=== PATIENT | female | born 1935 | race Caucasian/White ===

== ENCOUNTER → 2019-12-14 11:41 | Outpatient (BNVA) | payer MEDICARE, SELFPAY | PROVIDERS: PCP Internal Medicine; Referring Provider Internal Medicine; Visit Provider Internal Medicine Cardiovascular Disease | DX: I48.0 Paroxysmal atrial fibrillation (principal); Z51.81 Encounter for therapeutic drug level monitoring; Z79.01 Long term (current) use of anticoagulants | CPT/HCPCS: 85610; 99211 ==

== ENCOUNTER 2019-12-14 11:45 | Outpatient (REF) | payer MEDICARE, SELFPAY | END 2019-12-14 11:46 | disposition home or self-care (01) | LOC: HO.LNP 11:45 | PROVIDERS: Visit Provider Internal Medicine Cardiovascular Disease | DX: I48.0 Paroxysmal atrial fibrillation (principal); Z79.01 Long term (current) use of anticoagulants ==

== ENCOUNTER → 2019-12-25 11:27 | Outpatient (BNVA) | payer MEDICARE, SELFPAY | PROVIDERS: PCP Internal Medicine; Referring Provider Internal Medicine; Visit Provider Nurse Practitioner Family | DX: I48.0 Paroxysmal atrial fibrillation (principal); R06.02 Shortness of breath; I10 Essential (primary) hypertension; E78.5 Hyperlipidemia, unspecified; Z79.01 Long term (current) use of anticoagulants | CPT/HCPCS: 99214 ==

== ENCOUNTER → 2020-01-11 11:36 | Outpatient (BNVA) | payer MEDICARE, SELFPAY | PROVIDERS: PCP Internal Medicine; Referring Provider Internal Medicine; Visit Provider Internal Medicine | DX: I48.0 Paroxysmal atrial fibrillation (principal); Z79.01 Long term (current) use of anticoagulants; Z51.81 Encounter for therapeutic drug level monitoring | CPT/HCPCS: 85610; 99211 ==

== ENCOUNTER 2020-01-30 12:17 | Outpatient (REF) | payer MEDICARE, SELFPAY ==
[2020-01-30 13:57] LABS: MANUAL DIFF FLAG NO
[2020-01-30 14:23] LABS: Basophils Percent Auto 0.6 % (0-2); Eosinophils Absolute Auto 0.1 X10*3/uL (0.0-0.4); Eosinophils Percent Auto 1.5 % (0-4); Hematocrit 44.7 % (37-47); Hemoglobin 14.5 g/dl (12.0-16.0); Imm Gran Abs Auto 0.03 X10*3/uL (0.00-0.03); Imm Gran Pct Auto 0.5 % (0.0-0.4); Lymphocytes Absolute Auto 2.6 X10*3/uL (1.2-4.9); Lymphocytes Percent Auto 39.7 % (20-40); Mean Corpuscular HGB Conc 32.4 g/dl (31.0-35.0); Mean Corpuscular Hemoglobin 30.3 pg (27.0-33.0); Mean Corpuscular Volume 93.5 fL (80-98); Mean Platelet Volume 11.4 fL (9.4-12.3); Monocytes Absolute Auto 0.4 X10*3/uL (0.1-1.2); Monocytes Percent Auto 6.3 % (2-11); Neutrophils Absolute Auto 3.4 X10*3/uL (2.0-8.3); Neutrophils Percent Auto 51.4 % (45-73); Platelet Count 241 X10*3/uL (160-400); Red Blood Count 4.78 X10*6/uL (4.20-5.50); Red Cell Distribution Width 13.2 % (11.0-16.0); White Blood Count 6.7 X10*3/uL (4.8-10.8)
[2020-01-30 14:25] LABS: Alanine Aminotransferase 25 U/L (0-31); Albumin Level 4.3 g/dL (3.5-5.0); Alkaline Phosphatase 99 U/L (39-117); Anion Gap 13 (12-20); Aspartate Amino Transferase 33 U/L (5-31); Bilirubin Total 0.9 mg/dL (0.0-1.0); Blood Urea Nitrogen 16 mg/dL (9-16); Calcium 9.1 mg/dL (8.4-10.2); Carbon Dioxide 33 mmol/L (22-29); Chloride 98 mmol/L (96-108); Cholesterol 174 mg/dL; Estimated Glomerular Filt Rate > 60; Glucose Fasting 110 mg/dL (60-99); HDL Cholesterol 71 mg/dL; LDL Cholesterol Calculated 72 mg/dl; Potassium 3.5 mmol/l (3.3-5.1); Sodium 140 mmol/L (135-145); Total Protein 6.9 g/dL (6.5-8.0); Triglycerides 155 mg/dL
== END 2020-01-30 12:18 | disposition home or self-care (01) ==
LOC: HO.HMGCLDS 12:17
PROVIDERS: PCP Internal Medicine; Visit Provider Internal Medicine
DX: E11.9 Type 2 diabetes mellitus without complications (principal)
CPT/HCPCS: 36415; 80053; 80061; 85025

== ENCOUNTER 2020-06-03 13:21 | Outpatient (REF) | payer MEDICARE, SELFPAY ==
[2020-06-03 16:21] LABS: MANUAL DIFF FLAG NO
[2020-06-03 16:37] LABS: Basophils Percent Auto 0.8 % (0-2); Eosinophils Absolute Auto 0.2 X10*3/uL (0.0-0.4); Eosinophils Percent Auto 2.9 % (0-4); Hematocrit 44.2 % (37-47); Hemoglobin 14.2 g/dl (12.0-16.0); Imm Gran Abs Auto 0.01 X10*3/uL (0.00-0.03); Imm Gran Pct Auto 0.2 % (0.0-0.4); Lymphocytes Absolute Auto 1.8 X10*3/uL (1.2-4.9); Lymphocytes Percent Auto 34.5 % (20-40); Mean Corpuscular HGB Conc 32.1 g/dl (31.0-35.0); Mean Corpuscular Hemoglobin 29.9 pg (27.0-33.0); Mean Corpuscular Volume 93.1 fL (80-98); Mean Platelet Volume 11.7 fL (9.4-12.3); Monocytes Absolute Auto 0.4 X10*3/uL (0.1-1.2); Monocytes Percent Auto 7.2 % (2-11); Neutrophils Absolute Auto 2.8 X10*3/uL (2.0-8.3); Neutrophils Percent Auto 54.4 % (45-73); Platelet Count 209 X10*3/uL (160-400); Red Blood Count 4.75 X10*6/uL (4.20-5.50); Red Cell Distribution Width 13.5 % (11.0-16.0); White Blood Count 5.2 X10*3/uL (4.8-10.8)
[2020-06-03 17:05] LABS: Alanine Aminotransferase 20 U/L (0-31); Albumin Level 4.3 g/dL (3.5-5.0); Alkaline Phosphatase 109 U/L (39-117); Anion Gap 18 (12-20); Aspartate Amino Transferase 32 U/L (5-31); Bilirubin Total 1.1 mg/dL (0.0-1.0); Blood Urea Nitrogen 16 mg/dL (9-16); Calcium 9.2 mg/dL (8.4-10.2); Carbon Dioxide 30 mmol/L (22-29); Chloride 101 mmol/L (96-108); Cholesterol 173 mg/dL; Estimated Glomerular Filt Rate > 60; Glucose Fasting 104 mg/dL (60-99); HDL Cholesterol 67 mg/dL; LDL Cholesterol Calculated 77 mg/dl; Potassium 4.5 mmol/L (3.3-5.1); Sodium 144 mmol/L (135-145); Triglycerides 145 mg/dL
== END 2020-06-03 13:22 | disposition home or self-care (01) ==
LOC: HO.HMGCLDS 13:21
PROVIDERS: PCP Internal Medicine; Visit Provider Internal Medicine
DX: Z00.00 Encounter for general adult medical examination without abnormal findings (principal); E11.9 Type 2 diabetes mellitus without complications; E03.9 Hypothyroidism, unspecified
CPT/HCPCS: 36415; 80053; 80061; 84443; 85025

== ENCOUNTER → 2020-07-25 10:10 | Outpatient (BNVA) | payer MEDICARE, SELFPAY | PROVIDERS: PCP Internal Medicine; Visit Provider Internal Medicine Cardiovascular Disease | DX: I48.0 Paroxysmal atrial fibrillation (principal); I10 Essential (primary) hypertension | CPT/HCPCS: 99212 ==

== ENCOUNTER 2020-10-20 15:13 | Outpatient (REF) | payer MEDICARE, SELFPAY ==
[2020-10-20 16:48] LABS: Thyroid Stimulating Hormone 1.61 uIU/mL (0.32-4.0)
== END 2020-10-20 15:14 | disposition home or self-care (01) ==
LOC: HO.LAB 15:13
PROVIDERS: PCP Internal Medicine; Visit Provider Internal Medicine
DX: E03.9 Hypothyroidism, unspecified (principal)
CPT/HCPCS: 36415; 84443

== ENCOUNTER 2021-01-20 12:18 | Outpatient (REF) | payer MEDICARE, SELFPAY ==
[2021-01-20 12:47] LABS: MANUAL DIFF FLAG NO
[2021-01-20 13:23] LABS: Basophils Percent Auto 0.4 % (0-2); Eosinophils Absolute Auto 0.3 X10*3/uL (0.0-0.4); Eosinophils Percent Auto 3.7 % (0-4); Hematocrit 40.3 % (37.0-47.0); Hemoglobin 13.4 g/dl (12.0-16.0); Imm Gran Abs Auto 0.03 X10*3/uL (0.00-0.03); Imm Gran Pct Auto 0.4 % (0.0-0.4); Lymphocytes Absolute Auto 1.8 X10*3/uL (1.2-4.9); Lymphocytes Percent Auto 21.8 % (20-40); Mean Corpuscular HGB Conc 33.3 g/dl (31.0-35.0); Mean Corpuscular Hemoglobin 30.8 pg (27.0-33.0); Mean Corpuscular Volume 92.6 fL (80.0-98.0); Mean Platelet Volume 10.6 fL (9.4-12.3); Monocytes Absolute Auto 0.6 X10*3/uL (0.1-1.2); Monocytes Percent Auto 7.6 % (2-11); Neutrophils Absolute Auto 5.4 x10*3/uL (2.0-8.3); Neutrophils Percent Auto 66.1 % (45-73); Platelet Count 244 X10*3/uL (160-400); Red Blood Count 4.35 X10*6/uL (4.20-5.50); Red Cell Distribution Width 13.4 % (11.0-16.0); White Blood Count 8.2 X10*3/uL (4.8-10.8)
[2021-01-20 13:49] LABS: Alanine Aminotransferase 17 U/L (0-31); Albumin Level 4.1 g/dL (3.5-5.0); Alkaline Phosphatase 97 U/L (39-117); Anion Gap 12 (12-20); Aspartate Amino Transferase 18 U/L (5-31); Bilirubin Total 0.7 mg/dL (0.0-1.0); Blood Urea Nitrogen 18 mg/dL (9-16); Calcium 9.2 mg/dL (8.4-10.2); Carbon Dioxide 31 mmol/L (22-29); Chloride 102 mmol/L (96-108); Cholesterol 169 mg/dL; Estimated Glomerular Filt Rate > 60; Glucose Fasting 105 mg/dL (60-99); HDL Cholesterol 65 mg/dL; LDL Cholesterol Calculated 81 mg/dl; Potassium 4.1 mmol/L (3.3-5.1); Sodium 141 mmol/L (135-145); Total Protein 6.5 g/dL (6.5-8.0); Triglycerides 118 mg/dL
[2021-01-20 14:12] LABS: Thyroid Stimulating Hormone 1.69 uIU/mL (0.32-4.0)
== END 2021-01-20 12:19 | disposition home or self-care (01) ==
LOC: HO.LAB 12:18
PROVIDERS: PCP Internal Medicine; Visit Provider Internal Medicine
DX: Z00.00 Encounter for general adult medical examination without abnormal findings (principal)
CPT/HCPCS: 36415; 80053; 80061; 84443; 85025

== ENCOUNTER 2021-06-10 13:25 | Outpatient (REF) | payer MEDICARE, SELFPAY ==
[2021-06-10 16:47] LABS: MANUAL DIFF FLAG NO
[2021-06-10 16:54] LABS: Basophils Percent Auto 0.6 % (0-2); Eosinophils Absolute Auto 0.1 X10*3/uL (0.0-0.4); Eosinophils Percent Auto 1.6 % (0-4); Hematocrit 42.4 % (37.0-47.0); Hemoglobin 13.9 g/dl (12.0-16.0); Imm Gran Abs Auto 0.01 X10*3/uL (0.00-0.03); Imm Gran Pct Auto 0.2 % (0.0-0.4); Lymphocytes Percent Auto 38.2 % (20-40); Mean Corpuscular HGB Conc 32.8 g/dl (31.0-35.0); Mean Corpuscular Hemoglobin 30.1 pg (27.0-33.0); Mean Corpuscular Volume 91.8 fL (80.0-98.0); Mean Platelet Volume 11.2 fL (9.4-12.3); Monocytes Absolute Auto 0.4 X10*3/uL (0.1-1.2); Monocytes Percent Auto 7.3 % (2-11); Neutrophils Absolute Auto 2.7 x10*3/uL (2.0-8.3); Neutrophils Percent Auto 52.1 % (45-73); Platelet Count 213 X10*3/uL (160-400); Red Blood Count 4.62 X10*6/uL (4.20-5.50); Red Cell Distribution Width 13.7 % (11.0-16.0); White Blood Count 5.1 X10*3/uL (4.8-10.8)
[2021-06-10 17:27] LABS: Alanine Aminotransferase 17 U/L (0-31); Albumin Level 4.2 g/dL (3.5-5.0); Alkaline Phosphatase 81 U/L (39-117); Anion Gap 13 (12-20); Aspartate Amino Transferase 21 U/L (5-31); Bilirubin Total 0.9 mg/dL (0.0-1.0); Blood Urea Nitrogen 12 mg/dL (9-16); Calcium 9.3 mg/dL (8.4-10.2); Carbon Dioxide 31 mmol/L (22-29); Chloride 102 mmol/L (96-108); Cholesterol 167 mg/dL; Estimated Glomerular Filt Rate > 60; Glucose Fasting 103 mg/dL (60-99); HDL Cholesterol 69 mg/dL; LDL Cholesterol Calculated 68 mg/dl; Potassium 3.5 mmol/L (3.3-5.1); Sodium 142 mmol/L (135-145); Total Protein 6.5 g/dL (6.5-8.0); Triglycerides 150 mg/dL
[2021-06-10 17:49] LABS: Thyroid Stimulating Hormone 2.45 uIU/mL (0.32-4.0)
== END 2021-06-10 13:26 | disposition home or self-care (01) ==
LOC: HO.HMGCLDS 13:25
PROVIDERS: PCP Internal Medicine; Visit Provider Internal Medicine
DX: Z00.00 Encounter for general adult medical examination without abnormal findings (principal); Z13.0 Encounter for screening for diseases of the blood and blood-forming organs and certain disorders involving the immune mechanism
CPT/HCPCS: 36415; 80053; 80061; 84443; 85025

== ENCOUNTER → 2021-07-27 12:51 | Outpatient (BNVA) | payer MEDICARE, SELFPAY | PROVIDERS: PCP Internal Medicine; Referring Provider Internal Medicine; Visit Provider Internal Medicine Cardiovascular Disease | DX: I48.0 Paroxysmal atrial fibrillation (principal); I10 Essential (primary) hypertension; R06.02 Shortness of breath | CPT/HCPCS: 93005; 99212 ==

== ENCOUNTER → 2021-09-09 12:59 | Outpatient (REF) | payer MEDICARE, SELFPAY ==
--- NOTE | 2021-09-09 13:02 | CA_ITS ---
Transthoracic Echocardiogram Patient (Last, First, Middle): Elyse Huang A Gender: Female Date of : 1935 Age: 86 Procedure Date: 09/09/2021 Procedure Type: Transthoracic Echocardiogram Location: OP Height: 154.94 cm Weight: 75.75 kg BSA: 1.75 m2 Heart Rate: bpm BP: 122 / 80 mmHg Crew Clerk: IGOR Referring MD: Philip Tillman MD Symptoms: R06.02 - Shortness of breath Study Quality: Fair ECG Rhythm: Sinus Conclusions: - The left ventricular systolic function is normal. The calculated ejection fraction is 60% by biplane method. - There is mild calcification of the aortic valve. - Small plaque is seen in the sino tubular ridge. Findings Left Ventricle Normal left ventricular cavity size. There is mildly increased left ventricular wall thickness. The left ventricular systolic function is normal. The calculated ejection fraction is 60% by biplane method. There is no evidence of regional wall motion abnormalities. Diastolic function is normal for age. Right Ventricle Normal right ventricular cavity size and systolic function. Atria Both atria are normal in size. Aortic Valve There is a normal trileaflet aortic valve. There is mild calcification of the aortic valve. There is no aortic valve stenosis. There is no aortic valve regurgitation. Mitral Valve The mitral valve appears normal. There is no mitral valve regurgitation. There is no mitral valve stenosis. Pulmonic Valve The pulmonic valve is likely normal. Tricuspid Valve Rheumatic tricuspid valve is noted. There is trace tricuspid valve regurgitation. The pulmonary artery systolic pressure is normal. Great Vessels The aortic arch is normal in size. Small plaque is seen in the sino tubular ridge. Venous The inferior vena cava is normal in size and collapses greater than 50% with inspiration. Pericardium/Pleural There is no evidence of pericardial effusion. Prior Study Comparison No significant change compared to prior study dated: 12/06/2019. Measurements 2D Linear Measurements IVSd: 1.04 0.6-0.9/0.6-1.0 cm LVIDd: 3.81 3.9-5.3/4.2-5.9 cm LVIDd Index: 2.18 2.4-3.2/2.2-3.1 cm/m2 LVIDs: 2.64 2.0-3.6 cm LVPWd: 1.03 0.7-1.1 cm LA Diam: 2.70 2.7-3.8/3.0-4.0 cm LAIDs Index: 1.54 1.5-2.3 cm/m2 LV Mass: 153.91 67-162/88-224 g LV Mass Index: 87.95 43-95/49-115 g/m2 LVOT Diam: 2.00 3.0+(-)1.3 cm 2D Systolic Function EF 4C: 64.30 >55% EF 2C: 58.30 >55% EF BiP: 59.50 >55% Mitral Valve MV Pk E: 0.85 MV PK A: 0.97 MV Decel Time: 322.00 E/A: 0.90 E'Lateral: 6.20 E'Medial: 7.62 E/E' Med: 11.20 E/E' Lat: 13.70 PHT: 94.00 MVA PHT: 2.34 Decel [place]: 2.65 Aortic Valve AoV Pk Nicola: 1.23 AoV Mn Nicola: 0.97 AoV VTI: 0.30 AoV Pk Grad: 6.00 Aov Mn Grad: 4.00 KENA Cont.VTI: 2.39 LVOT LVOT Pk Nicola: 1.03 LVOT Mn Nicola: 0.70 LVOT VTI: 0.23 LVOT Pk Grad: 4.00 LVOT Mn Grad: 2.00 LVOT Diam: 2.00 LVOT Area: 3.14 Diastolic Function MV Pk E: 0.85 MV Pk A: 0.97 E/A: 0.90 E'Medial: 7.62 E/E' Med: 11.20 E' Laterial: 6.20 E/E' Lat: 13.70 Right Ventricle TAPSE (mm): 17.50 TVS' Nicola: 9.68 Tricuspid Valve TR Pk Nicola: 2.04 TR Pk Grad: 17.00 RA Press: 3.00 RVSP: 20.00 Great Vessels Aorta Sinus of Valsalva: 3.54 2.0-3.5 cm Ao Asc: 3.60 2.1-3.4 cm Ao Arch: 2.90 Updated in Other Vendor System with Status of Final Kingsley Mckenzie MD electronically signed on 09/11/2021 1:14:23 PM with status of Final
== END ==
LOC: HO.CARD 12:59
PROVIDERS: PCP Internal Medicine; Visit Provider Internal Medicine Cardiovascular Disease
DX: R06.02 Shortness of breath (principal)
CPT/HCPCS: 93306

== ENCOUNTER 2021-11-04 12:52 | Outpatient (REF) | payer MEDICARE, SELFPAY ==
[2021-11-04 14:49] LABS: Cholesterol 186 mg/dL; HDL Cholesterol 74 mg/dL; LDL Cholesterol Calculated 92 mg/dl; Triglycerides 100 mg/dL
[2021-11-04 14:57] LABS: Thyroid Stimulating Hormone 1.66 uIU/mL (0.32-4.0)
== END 2021-11-04 12:53 | disposition home or self-care (01) ==
LOC: HO.HMGCLDS 12:52
PROVIDERS: PCP Internal Medicine; Visit Provider Internal Medicine
DX: Z13.220 Encounter for screening for lipoid disorders (principal); Z13.29 Encounter for screening for other suspected endocrine disorder
CPT/HCPCS: 36415; 80061; 84443

== ENCOUNTER 2022-01-19 12:43 | Outpatient (REF) | payer MEDICARE, SELFPAY ==
[2022-01-19 16:22] LABS: Anion Gap 18 (12-20); Blood Urea Nitrogen 18 mg/dL (9-16); Calcium 9.6 mg/dL (8.4-10.2); Carbon Dioxide 25 mmol/L (22-29); Chloride 102 mmol/L (96-108); Cholesterol 199 mg/dL; Estimated Glomerular Filt Rate > 60; Glucose Random 123 mg/dL (60-115); HDL Cholesterol 89 mg/dL; LDL Cholesterol Calculated 92 mg/dl; Potassium 4.2 mmol/L (3.3-5.1); Sodium 141 mmol/L (135-145); Triglycerides 92 mg/dL
[2022-01-19 16:37] LABS: Thyroid Stimulating Hormone 0.37 uIU/mL (0.32-4.0)
== END 2022-01-19 12:44 | disposition home or self-care (01) ==
LOC: HO.LAB 12:43
PROVIDERS: PCP Internal Medicine; Referring Provider Internal Medicine; Visit Provider Internal Medicine Cardiovascular Disease
DX: I48.0 Paroxysmal atrial fibrillation (principal); E78.5 Hyperlipidemia, unspecified; E03.9 Hypothyroidism, unspecified; I10 Essential (primary) hypertension; Z79.899 Other long term (current) drug therapy
CPT/HCPCS: 36415; 80048; 80061; 84443; 99212

== ENCOUNTER 2022-02-17 12:47 | Outpatient (REF) | payer MEDICARE, SELFPAY ==
[2022-02-17 13:49] LABS: MANUAL DIFF FLAG NO
[2022-02-17 13:59] LABS: Basophils Percent Auto 0.8 % (0-2); Eosinophils Absolute Auto 0.1 X10*3/uL (0.0-0.4); Eosinophils Percent Auto 2.7 % (0-4); Hematocrit 41.3 % (37.0-47.0); Hemoglobin 13.6 g/dl (12.0-16.0); Imm Gran Abs Auto 0.02 X10*3/uL (0.00-0.03); Imm Gran Pct Auto 0.4 % (0.0-0.4); Lymphocytes Absolute Auto 1.7 X10*3/uL (1.2-4.9); Lymphocytes Percent Auto 32.4 % (20-40); Mean Corpuscular HGB Conc 32.9 g/dl (31.0-35.0); Mean Corpuscular Hemoglobin 30.4 pg (27.0-33.0); Mean Corpuscular Volume 92.4 fL (80.0-98.0); Mean Platelet Volume 10.5 fL (9.4-12.3); Monocytes Absolute Auto 0.5 X10*3/uL (0.1-1.2); Monocytes Percent Auto 8.8 % (2-11); Neutrophils Absolute Auto 2.8 x10*3/uL (2.0-8.3); Neutrophils Percent Auto 54.9 % (45-73); Platelet Count 250 X10*3/uL (160-400); Red Blood Count 4.47 X10*6/uL (4.20-5.50); Red Cell Distribution Width 13.3 % (11.0-16.0); White Blood Count 5.1 X10*3/uL (4.8-10.8)
[2022-02-17 15:02] LABS: Alanine Aminotransferase 18 U/L (0-31); Albumin Level 4.2 g/dL (3.5-5.0); Alkaline Phosphatase 78 U/L (39-117); Anion Gap 13 (12-20); Aspartate Amino Transferase 25 U/L (5-31); Bilirubin Total 0.9 mg/dL (0.0-1.0); Blood Urea Nitrogen 14 mg/dL (9-16); Calcium 9.3 mg/dL (8.4-10.2); Carbon Dioxide 31 mmol/L (22-29); Chloride 103 mmol/L (96-108); Cholesterol 171 mg/dL; Estimated Glomerular Filt Rate > 60; Glucose Fasting 112 mg/dL (60-99); HDL Cholesterol 64 mg/dL; LDL Cholesterol Calculated 78 mg/dl; Potassium 3.7 mmol/L (3.3-5.1); Sodium 143 mmol/L (135-145); Thyroid Stimulating Hormone 1.61 uIU/mL (0.32-4.0); Total Protein 6.3 g/dL (6.5-8.0); Triglycerides 149 mg/dL
== END 2022-02-17 12:48 | disposition home or self-care (01) ==
LOC: HO.HMGCLDS 12:47
PROVIDERS: PCP Internal Medicine; Visit Provider Internal Medicine
DX: Z13.0 Encounter for screening for diseases of the blood and blood-forming organs and certain disorders involving the immune mechanism (principal); E03.9 Hypothyroidism, unspecified; E78.5 Hyperlipidemia, unspecified; I10 Essential (primary) hypertension
CPT/HCPCS: 36415; 80053; 80061; 84443; 85025

== ENCOUNTER 2022-04-01 17:48 | Outpatient (REF) | payer MEDICARE, SELFPAY ==
[2022-04-01 18:02] LABS: Appearance Urine Turbid; Color Urine Yellow; Glucose Urine UA Negative (Negative); Leukocyte Esterase Urine Large (3+) (Negative); Nitrite Urine Positive (Negative); Specific Gravity - Urine 1.015 (1.005-1.025); UMIC TRIGGER UACC YES; Urine Blood Moderate (2+) (Negative); Urine Ketones Negative (Negative); Urine Protein 100 (2+) mg/dL (Neg-Trace)
[2022-04-01 18:06] LABS: Bacteria Urine 4+ (None Seen); Hyaline Casts Urine 0-2 /LPF (0-2); RBC Urine >20 /HPF (0-2); Squamous Epithelial Cell Urine 0-2 /HPF (0-2); UACC Culture Trigger YES; WBC Urine >50 /HPF (0-5)
== END 2022-04-01 17:49 | disposition home or self-care (01) ==
LOC: HO.LNP 17:48
PROVIDERS: Visit Provider Internal Medicine
DX: N39.0 Urinary tract infection, site not specified (principal)
CPT/HCPCS: 81001; 87086; 87088; 87186

== ENCOUNTER 2022-06-24 15:47 | Emergency (ER) | payer MEDICARE, SELFPAY ==
--- NOTE | ~2022-06-24 | XR_ITS ---
EXAMINATION: XR CHEST CLINICAL INFORMATION: Acute burning in the chest. COMPARISON: Chest radiograph 03/26/2019. TECHNIQUE: 2 views of the chest were obtained. FINDINGS: Focal airspace opacities overlying the lower thoracic spine in the lower lungs on the lateral view. No pleural effusion or pneumothorax. Stable cardiomediastinal silhouette. Thoracic spondylosis. No acute osseous abnormalities. Right upper quadrant surgical clips. XR/XR chest 2V IMPRESSION: Focal airspace opacities in the lower lungs on the lateral view could be associated with bronchovascular crowding/bronchial wall thickening, aspiration or pneumonia. Recommend a follow-up examination after treatment to ensure resolution.
[2022-06-24 16:01] VITALS: BP 123/76; BP 148/81; PULSE 101; PULSE 78; RESP 20; TEMP 37.1; O2SAT 94; O2SAT 96; BMI 32.1
--- NOTE | 2022-06-24 16:08 | PC.NURSE ---
Pt arrived via EMS, she is a/ox4. Complaints of upper gastric pain x2 days, she recently changed taking her pantoprozole to HS from AM. denies chest pain, sob. +for n/v reports some bright red in vomit as well. gets worse when eating and drinking
--- NOTE | 2022-06-24 16:34 | ECG_ITS ---
Test Reason : CHEST PAIN Blood Pressure : / mmHG Vent. Rate : 064 BPM Atrial Rate : 064 BPM P-R Int : 186 ms QRS Dur : 068 ms QT Int : 418 ms P-R-T Axes : 060 003 042 degrees QTc Int : 431 ms Normal sinus rhythm Normal ECG When compared with ECG of 28-JAN-2017 14:54, Nonspecific T wave abnormality no longer evident in Lateral leads Referred By: Mc Jha Electronically Signed By:SUMMER URRUTIA MD
[2022-06-24] MEDS: Famotidine/PF 20 MG/2 ML VIAL IVPUSH (16:45)
[2022-06-24] MEDS: Magnesium Hydrox/Alum Hydrox 30 ML ORAL.SUSP PO (16:45)
[2022-06-24] MEDS: Lidocaine HCl Viscous 2 % 15 ML SOLUTION MUCOUS MEM (16:45)
[2022-06-24] MEDS: PHENobarb/Hyoscy/Atropine/Scop 10 ML ELIXIR PO (16:46)
[2022-06-24 16:53] LABS: MANUAL DIFF FLAG NO
[2022-06-24 16:57] LABS: Basophils Absolute Auto 0.1 X10*3/uL (0.0-0.2); Basophils Percent Auto 0.8 % (0-2); Eosinophils Absolute Auto 0.1 X10*3/uL (0.0-0.4); Eosinophils Percent Auto 1.7 % (0-4); Hematocrit 39.9 % (37.0-47.0); Hemoglobin 13.2 g/dl (12.0-16.0); Imm Gran Abs Auto 0.01 X10*3/uL (0.00-0.03); Imm Gran Pct Auto 0.2 % (0.0-0.4); Lymphocytes Absolute Auto 2.5 X10*3/uL (1.2-4.9); Lymphocytes Percent Auto 38.1 % (20-40); Mean Corpuscular HGB Conc 33.1 g/dl (31.0-35.0); Mean Corpuscular Hemoglobin 29.8 pg (27.0-33.0); Mean Corpuscular Volume 90.1 fL (80.0-98.0); Mean Platelet Volume 10.3 fL (9.4-12.3); Monocytes Absolute Auto 0.6 X10*3/uL (0.1-1.2); Monocytes Percent Auto 9.4 % (2-11); Neutrophils Absolute Auto 3.3 x10*3/uL (2.0-8.3); Neutrophils Percent Auto 49.8 % (45-73); Platelet Count 193 X10*3/uL (160-400); Red Blood Count 4.43 X10*6/uL (4.20-5.50); Red Cell Distribution Width 14.5 % (11.0-16.0); White Blood Count 6.6 X10*3/uL (4.8-10.8)
[2022-06-24 17:09] LABS: Anion Gap 13 (12-20); Blood Urea Nitrogen 12 mg/dL (9-16); Calcium 8.8 mg/dL (8.4-10.2); Carbon Dioxide 30 mmol/L (22-29); Chloride 103 mmol/L (96-108); Creatinine Clr Calc Pharmacy 50.6; Estimated Glomerular Filt Rate > 60; Glucose Random 106 mg/dL (60-115); Potassium 3.7 mmol/L (3.3-5.1); Sodium 142 mmol/L (135-145)
[2022-06-24 17:22] LABS: Troponin-I High Sensitivity < 2.7 ng/L (<3.5-17.0)
--- NOTE | 2022-06-24 18:06 | ED.GENADULT ---
HPI - General Adult General Chief complaint: General Medical Stated complaint: med reaction Time Seen by Provider: 06/24/22 16:25 Source: patient Mode of arrival: ambulatory Limitations: no limitations History of Present Illness HPI narrative: 87-year-old female with a history reflux, hypothyroidism, hypertension, atrial fibrillation presents with burning chest pain. Symptoms started approximately 4-5 days ago. They are moderate to severe in nature. They are worse with lying down. Their bedding or wrist sitting up. They are not associated with exertion. It has been associated with nausea vomiting. She denies any shortness of breath, fevers, chills, sweats. She denies any melanotic stools or dark black stools. Symptoms are more severe and frequent than they have been in the past. She has tried Pepto-Bismol with some improvement. Related Data Previous Rx's Medication Instructions Recorded dicyclomine 20 mg tablet 20 mg PO QID #30 tabs 11/04/20 cyclobenzaprine 5 mg tablet 5 mg PO TID PRN muscle spasm #20 03/05/21 tabs hydrochlorothiazide 25 mg tablet 25 mg PO DAILY 90 days #90 tabs 08/13/21 metoprolol succinate 50 mg 50 mg PO DAILY #90 tabs 10/15/21 tablet,extended release 24 hr pantoprazole 40 mg tablet,delayed 40 mg PO DAILY #90 tabs 12/07/21 release sulfamethoxazole 800 1 tab PO BID #10 tabs 04/06/22 mg-trimethoprim 160 mg tablet (Bactrim DS) lorazepam 1 mg tablet 1 mg PO BID PRN anxiety #60 tabs 04/19/22 levothyroxine 50 mcg tablet 50 mcg PO DAILY #90 tabs 05/17/22 sertraline 50 mg tablet 50 mg PO DAILY #90 tabs 05/17/22 atorvastatin 40 mg tablet 40 mg PO DAILY #90 tabs 05/20/22 apixaban 5 mg tablet (Eliquis) 5 mg PO BID #60 tabs 06/16/22 famotidine 20 mg tablet 20 mg PO BEDTIME #30 tabs 06/24/22 sucralfate 1 gram tablet (Carafate) 1 g PO BID #30 tabs 06/24/22 Allergies Allergy/AdvReac Type Severity Reaction Status Date / Time ampicillin Allergy Unknown Unknown Verified 05/25/22 07:46 erythromycin base Allergy Unknown Rash Verified 05/25/22 07:46 lisinopril AdvReac Intermediate Cough Verified 05/25/22 07:46 [facility] Past Medical History Medical History Anxiety HLD (hyperlipidemia) HTN (hypertension) Obesity Shortness of breath Surgical History History of foot surgery Hx of cataract surgery Hx of cholecystectomy Hx of eye surgery Hx of hysterectomy Hx of thyroidectomy Family History Family History Father No problems noted. Mother No problems noted. Social History Social History Housing: House Alcohol intake: never Patient Tobacco Use Status: Never used Tobacco Smoked in Last 30 Days: No e-Cigarette/Vaping Use: Never Used Second Hand Smoke Exposure: No Use of substances other than those prescribed or required for medical reasons: No Advance Directives: No Advance Directives Information Provided: No service: No Current occupational status: retired Cognitive needs: Yes (cane/walker) Hearing needs: No Vision needs: Yes (reading glasses) Physical Exam ED Vital Signs: Vital Signs - 24 hr 06/24/22 16:01 Temperature 98.8 F Pulse Rate 101 H Respiratory Rate 20 Blood Pressure 148/81 H Pulse Oximetry 94 Oxygen Delivery Method Room Air BMI result Body Mass Index 32.1 GEN: Well developed, no acute distress, alert, oriented HEENT: Normocephalic, atraumatic, normal external ears, nose appears normal, no oropharyngeal edema or exudates Eyes: Normal to appearance Neck: Supple, no lymphadenopathy Respiratory: Talks in complete sentences, no respiratory distress, clear to auscultation bilaterally Cardiovascular: Regular rate and rhythm, no murmurs rubs or gallops Abdomen: Soft, nontender, nondistended, no guarding, no rebound Back: No CVA tenderness Extremities: No clubbing cyanosis or edema Neurologic: No focal neurologic deficits, cranial nerves 2-12 intact, strength is 5/5 bilaterally, gait normal Skin: No rash Course Course Course Narrative: 87-year-old female with multiple medical problems presents with burning chest and throat pain for 5 days that is intermittent nature. Is not exertional in nature. EKG was demonstrative of no acute ischemia. Symptoms are much more consistent with acute GERD, esophageal spasm or other gastrointestinal etiology. However, given patient's age and risk factors a troponin was ordered which was negative. Given the duration of her symptoms, negative troponin, this is unlikely to be cardiac ischemia given the atypical story. Patient was treated symptomatically with famotidine and GI cocktail. Will re-evaluate patient to determine her response. Medications Administered Discontinued Medications Generic Name Dose Route Start Last Admin Trade Name Hardik PRN Reason Stop Dose Admin Al Hydroxide/Mg Hydroxide 30 ml 06/24/22 16:34 06/24/22 16:45 Magnesium Hydrox/Alum Hydrox 30 Ml Oral.Susp PO 06/24/22 16:35 30 ml ONCE ONE Administration Belladonna Alkaloids/Phenobarbital 10 ml 06/24/22 16:34 06/24/22 16:46 Phenobarb/Hyoscy/Atropine/Scop 10 Ml Elixir PO 06/24/22 16:35 10 ml ONCE ONE Administration Famotidine 20 mg 06/24/22 16:34 06/24/22 16:45 Famotidine/Pf 20 Mg/2 Ml Vial IVPUSH 06/24/22 16:35 20 mg ONCE ONE Administration Lidocaine HCl 15 ml 06/24/22 16:34 06/24/22 16:45 Lidocaine Hcl Viscous 2 % 15 Ml Solution MUCOUS MEM 06/24/22 16:35 15 ml ONCE ONE Administration Medical Decision Making Medical Decision Making [facility] Narrative: 87-year-old female with history of paroxysmal atrial fibrillation, hypertension, hyperlipidemia, hypothyroidism presents with burning chest pain and throat pain. The symptoms are somewhat positional. They are not associated with exertion. It has been associated with nausea vomiting. Her examination was unremarkable. EKG is nonischemic. Chest x-ray will be ordered. Lab test will be ordered in order to rule out acute coronary syndrome. Most likely etiology is gastrointestinal. There are no red flag symptoms or exam findings to suggest aortic dissection, thoracic aneurysm, pneumothorax, Boerhaave syndrome. Differential Diagnosis Differential Diagnoses: The differential diagnosis associated with the presentation includes (GERD, esophageal spasm, gastritis, angina, acute coronary syndrome, musculoskeletal pain, atypical chest pain) Burning chest pain Admission/Observation Consideration of admission/observation: Escalation of care including admission/observation considered Lab Data [facility] Lab Attestation statement: I reviewed the patient's lab results. 06/24/22 16:45 06/24/22 16:45 Labs: Lab Results 06/24/22 06/24/22 06/24/22 Range/Units 16:45 16:45 16:45 WBC 6.6 (4.8-10.8) X10*3/uL RBC 4.43 (4.20-5.50) X10*6/uL Hgb 13.2 (12.0-16.0) g/dl Hct 39.9 (37.0-47.0) % MCV 90.1 (80.0-98.0) fL MCH 29.8 (27.0-33.0) pg MCHC 33.1 (31.0-35.0) g/dl RDW 14.5 (11.0-16.0) % Plt Count 193 (160-400) X10*3/uL MPV 10.3 (9.4-12.3) fL Immature Gran % (Auto) 0.2 (0.0-0.4) % Neut % (Auto) 49.8 (45-73) % Lymph % (Auto) 38.1 (20-40) % [place] % (Auto) 9.4 (2-11) % Eos % (Auto) 1.7 (0-4) % Baso % (Auto) 0.8 (0-2) % Lymph # (Auto) 2.5 (1.2-4.9) X10*3/uL [place] # (Auto) 0.6 (0.1-1.2) X10*3/uL Eos # (Auto) 0.1 (0.0-0.4) X10*3/uL Baso # (Auto) 0.1 (0.0-0.2) X10*3/uL Abs Immat Gran (auto) 0.01 (0.00-0.03) X10*3/uL Absolute Neuts (auto) 3.3 (2.0-8.3) x10*3/uL Absolute Nucleated RBC 0.000 (0.0-0.012) X10*3/uL Nucleated RBC % (auto) 0.0 (0.0-0.2) /100WBC Sodium 142 (135-145) mmol/L Potassium 3.7 (3.3-5.1) mmol/L Chloride 103 (96-108) mmol/L Carbon Dioxide 30 H (22-29) mmol/L Anion Gap 13 (12-20) BUN 12 (9-16) mg/dL Creatinine 0.75 (0.5-1.4) mg/dL Estim Creat Clear Calc 50.6 Estimated GFR > 60 Random Glucose 106 (60-115) mg/dL Calcium 8.8 (8.4-10.2) mg/dL Troponin I High Sens < 2.7 (<3.5-17.0) ng/L Independent Interpretation I performed an independent interpretation of an: EKG (Normal sinus rhythm heart rate 64, nonspecific T-wave change noted in lead 3, low voltage in some of the leads, no acute ST elevations depressions, centrally normal EKG) and Plain X-Ray (No acute cardiopulmonary disease) Tests considered The following testing was considered but not selected: CT chest Prescription Management I considered prescription management with: Pain Medication Chronic Conditions Patient?s care impacted by: Hypertension Discharge Plan Discharge Clinical Impression: Burning chest pain Patient Disposition: Home, Self-Care Instructions: Chest Pain (DC), Diet for Stomach Ulcers and Gastritis (ED), Gastroesophageal Reflux Disease (DC) Prescriptions: New famotidine 20 mg tablet 20 mg PO BEDTIME Qty: 30 0RF sucralfate [Carafate] 1 gram tablet 1 g PO BID Qty: 30 0RF No Action dicyclomine 20 mg tablet 20 mg PO QID Qty: 30 3RF hydrochlorothiazide 25 mg tablet 25 mg PO DAILY 90 Days Qty: 90 3RF metoprolol succinate 50 mg tablet extended release 24 hr 50 mg PO DAILY Qty: 90 3RF pantoprazole 40 mg tablet,delayed release (DR/EC) 40 mg PO DAILY Qty: 90 3RF sulfamethoxazole-trimethoprim [Bactrim DS] 800-160 mg tablet 1 tab PO BID Qty: 10 0RF lorazepam 1 mg tablet 1 mg PO BID PRN (Reason: anxiety) Qty: 60 5RF sertraline 50 mg tablet 50 mg PO DAILY Qty: 90 8RF levothyroxine 50 mcg tablet 50 mcg PO DAILY Qty: 90 8RF atorvastatin 40 mg tablet 40 mg PO DAILY Qty: 90 8RF Eliquis 5 mg tablet 5 mg PO BID Qty: 60 5RF cyclobenzaprine 5 mg tablet 5 mg PO TID PRN (Reason: muscle spasm) Qty: 20 0RF Referrals: Brody Kerr MD [Physician] - 2 weeks
== END 2022-06-24 19:30 | disposition home or self-care (01) ==
PROVIDERS: Emergency Provider Emergency Medicine; PCP Internal Medicine
DX: R07.89 Other chest pain (principal); I48.0 Paroxysmal atrial fibrillation; I10 Essential (primary) hypertension; Z79.899 Other long term (current) drug therapy
CPT/HCPCS: 36415; 71046; 80048; 84484; 85025; 93005; 99285

== ENCOUNTER 2022-06-29 13:50 | Outpatient (REF) | payer MEDICARE, SELFPAY ==
[2022-06-29 16:59] LABS: MANUAL DIFF FLAG NO
[2022-06-29 17:08] LABS: Basophils Percent Auto 0.6 % (0-2); Eosinophils Absolute Auto 0.1 X10*3/uL (0.0-0.4); Eosinophils Percent Auto 1.6 % (0-4); Hematocrit 43.5 % (37.0-47.0); Hemoglobin 14.3 g/dl (12.0-16.0); Imm Gran Abs Auto 0.01 X10*3/uL (0.00-0.03); Imm Gran Pct Auto 0.2 % (0.0-0.4); Lymphocytes Absolute Auto 2.5 X10*3/uL (1.2-4.9); Lymphocytes Percent Auto 40.2 % (20-40); Mean Corpuscular HGB Conc 32.9 g/dl (31.0-35.0); Mean Corpuscular Volume 91.4 fL (80.0-98.0); Mean Platelet Volume 11.4 fL (9.4-12.3); Monocytes Absolute Auto 0.5 X10*3/uL (0.1-1.2); Monocytes Percent Auto 7.4 % (2-11); Neutrophils Absolute Auto 3.1 x10*3/uL (2.0-8.3); Platelet Count 211 X10*3/uL (160-400); Red Blood Count 4.76 X10*6/uL (4.20-5.50); White Blood Count 6.2 X10*3/uL (4.8-10.8)
[2022-06-29 17:30] LABS: Alanine Aminotransferase 23 U/L (0-31); Albumin Level 4.4 g/dL (3.5-5.0); Alkaline Phosphatase 96 U/L (39-117); Anion Gap 14 (12-20); Aspartate Amino Transferase 36 U/L (5-31); Bilirubin Total 1.3 mg/dL (0.0-1.0); Blood Urea Nitrogen 14 mg/dL (9-16); Calcium 9.3 mg/dL (8.4-10.2); Carbon Dioxide 29 mmol/L (22-29); Chloride 101 mmol/L (96-108); Cholesterol 166 mg/dL; Estimated Glomerular Filt Rate > 60; Glucose Fasting 105 mg/dL (60-99); HDL Cholesterol 62 mg/dL; LDL Cholesterol Calculated 69 mg/dl; Potassium 3.4 mmol/L (3.3-5.1); Sodium 141 mmol/L (135-145); Total Protein 6.7 g/dL (6.5-8.0); Triglycerides 177 mg/dL
[2022-06-29 17:46] LABS: Thyroid Stimulating Hormone 1.86 uIU/mL (0.32-4.0)
== END 2022-06-29 13:51 | disposition home or self-care (01) ==
LOC: HO.HMGCLDS 13:50
PROVIDERS: PCP Internal Medicine; Visit Provider Internal Medicine
DX: E78.5 Hyperlipidemia, unspecified (principal); E03.9 Hypothyroidism, unspecified; N28.9 Disorder of kidney and ureter, unspecified; D64.9 Anemia, unspecified
CPT/HCPCS: 36415; 80053; 80061; 84443; 85025

== ENCOUNTER 2022-07-22 12:15 | Outpatient (REF) | payer MEDICARE, SELFPAY ==
--- NOTE | ~2022-07-22 | XR_ITS ---
EXAMINATION: XR CHEST CLINICAL INFORMATION: Cough COMPARISON: 06/24/2022 TECHNIQUE: 2 views of the chest were obtained. FINDINGS: There is been slight improvement in the focal airspace disease in the posterior basal segment of the left lower lobe. Tiny amount of atelectasis remains. The examination is otherwise unchanged. No other significant abnormality is noted involving the heart, lungs, mediastinum, bony thorax or soft tissues. XR/XR chest 2V IMPRESSION: Slight improvement in left lower lobe airspace disease.
== END 2022-07-22 12:16 | disposition home or self-care (01) ==
LOC: HO.XRAY 12:15
PROVIDERS: PCP Internal Medicine; Visit Provider Internal Medicine
DX: R05.9 Cough, unspecified (principal)
CPT/HCPCS: 71046

== ENCOUNTER → 2022-08-17 11:38 | Outpatient (BNVA) | payer MEDICARE, SELFPAY | PROVIDERS: PCP Internal Medicine; Referring Provider Internal Medicine; Visit Provider Internal Medicine Cardiovascular Disease | DX: I48.0 Paroxysmal atrial fibrillation (principal); I10 Essential (primary) hypertension | CPT/HCPCS: 99212 ==

== ENCOUNTER 2022-09-30 13:34 | Outpatient (REF) | payer MEDICARE, SELFPAY ==
[2022-09-30 16:44] LABS: Cholesterol 167 mg/dL; Glucose Fasting 104 mg/dL (60-99); HDL Cholesterol 64 mg/dL; LDL Cholesterol Calculated 71 mg/dl; Triglycerides 163 mg/dL
[2022-09-30 16:55] LABS: Estimated Average Glucose 103 mg/dL; Hemoglobin A1c % 5.2 %
== END 2022-09-30 13:35 | disposition home or self-care (01) ==
LOC: HO.HMGCLDS 13:34
PROVIDERS: PCP Internal Medicine; Visit Provider Internal Medicine
DX: E03.9 Hypothyroidism, unspecified (principal); R73.9 Hyperglycemia, unspecified; E78.5 Hyperlipidemia, unspecified
CPT/HCPCS: 36415; 80061; 82947; 83036; 84443

== ENCOUNTER 2022-10-05 11:35 | Outpatient (AMB) | payer MEDICARE, SELFPAY ==
--- NOTE | 2022-10-05 11:38 | MHC.PC.OV ---
Vital Signs 10/05/22 11:40 Height 5 ft 1 in Weight 160 lb 8 oz BMI 30.3 BP 116/72 Blood Pressure Location Lt brachial Position Sitting Pulse 62 Pulse Source Pulse Oximeter Pulse Oximetry (%) 98 Oxygen Delivery Method Room Air Intake Visit Reasons: 3 month f/u Intake Note: Patient is here to follow up on HTN, HLD, PAF. [employer] Operations Supervisor Required: No Accompanied by: Self / Same As Patient Allergies ampicillin Allergy (Unknown, Verified 10/05/22 11:39) Unknown erythromycin base Allergy (Unknown, Verified 10/05/22 11:39) Rash lisinopril Adverse Reaction (Intermediate, Verified 10/05/22 11:39) Cough Medication List - Last Reconciled 10/05/22 by Rex Rodriguez MD apixaban (Eliquis) 5 mg PO BID atorvastatin 40 mg PO DAILY cyclobenzaprine 5 mg PO TID PRN dicyclomine 20 mg PO QID famotidine 20 mg PO BEDTIME hydrochlorothiazide 25 mg PO DAILY 90 days levothyroxine 50 mcg PO DAILY lorazepam 1 mg PO BID PRN metoprolol succinate ER 50 mg PO DAILY pantoprazole 40 mg PO DAILY sertraline 50 mg PO DAILY Tobacco use date assessed: 10/05/22 Dental Screening Dental Screen Date: 10/05/22 Did you have a dental visit in the last 12 months?: Yes Did you have a dental problem in the last 6 months where you did not have access to dental care?: No Was dental information given to patient?: Patient has dentist HPI 3 month f/u HPI Details HTN hyperlipidemia and hypothyroidism; stable PFSH Medical History Anxiety HLD (hyperlipidemia) HTN (hypertension) Obesity Shortness of breath Surgical History History of foot surgery Hx of cataract surgery Hx of cholecystectomy Hx of eye surgery Hx of hysterectomy Hx of thyroidectomy Family History Father No problems noted. Mother No problems noted. Social History Housing: House Alcohol intake: never Patient Tobacco Use Status: Never used Tobacco e-Cigarette/Vaping Use: Never Used Second Hand Smoke Exposure: No service: No Current occupational status: retired Cognitive needs: Yes (cane/walker) Hearing needs: No Vision needs: Yes (reading glasses) Questionnaire PHQ-9 Over the last 2 weeks, how often have you been bothered by any of the following problems? Depression Screening Interpretation: Positive Source: Developed by Drs. Mann Medeiros, Hetal Johnson, Erick Tellez and colleagues, with an educational zulma from [employer]. Thrive Questionnaire Date Thrive assessed: 07/05/22 Currently or been in a relationship where the following occur: no concerns reported ERICKA-7 AMB Questionnaire ERICKA-7 Date ERICKA - 7 assessed: 07/05/22 Source: Developed by Drs. Mann Medeiros, Hetal Johnson, Erick Tellez and colleagues, with an educational zulma from [employer]. Review of Systems Const Denies chills, Denies headache(s) and Denies weight loss ENT Denies headache(s) Card Denies chest pain, Denies syncope, Denies irregular heart rhythm and Denies dyspnea Resp Denies chest congestion, Denies cough and Denies dyspnea GI Denies abdominal pain, Denies change in stool character, Denies nausea and Denies vomiting Musc Denies deformity and Denies joint swelling Neuro Denies syncope and Denies headache(s) Physical exam (Primary Care) Vital Signs: Last Vital Signs Pulse 62 10/05/22 11:40 BP 116/72 10/05/22 11:40 Pulse Ox 98 10/05/22 11:40 Oxygen Delivery Method Room Air 10/05/22 11:40 BMI result Body Mass Index 30.3 Tobacco/Smoking Status: Tobacco use Status Tobacco use date assessed 10/05/22 10/05/22 11:45 Patient Tobacco Use Status Never used Tobacco 10/05/22 11:45 e-Cigarette/Vaping Use Never Used 10/05/22 11:45 Depression Screening Interpretation: Positive Thrive Assessment: Date of Thrive Assessment Date Thrive assessed 07/05/22 10/05/22 11:45 Currently or been in a relationship where the following occur: no concerns reported Const General: cooperative, comfortable and no acute distress Resp Effort & Inspection: normal respiratory effort Auscultation: clear to auscultation bilaterally Percussion: percussion normal Cardio Jugular venous distension: no JVD Rate: regular rate Rhythm: regular rhythm GI Inspection: Yes normal to inspection Assessment and Plan Assessment & Plan (1) Hypothyroidism: Code(s): E03.9 - Hypothyroidism, unspecified Plan: stable; same rx (2) HLD (hyperlipidemia): Code(s): E78.5 - Hyperlipidemia, unspecified Plan: stable; same rx (3) HTN (hypertension): Code(s): I10 - Essential (primary) hypertension Plan: stable; same rx Orders: Orders Lipid Panel Today E78.5 - Hyperlipidemia, unspecified Thyroid Stimulating Hormone Today E03.9 - Hypothyroidism, unspecified Medications: Refilled lorazepam 1 mg PO BID PRN 60 tabs 5RF anxiety Coding Level of Care Code Est Pt Level 4 (97271) Diagnoses Hypothyroidism E03.9 HLD (hyperlipidemia) E78.5 HTN (hypertension) I10
[2022-10-05 11:40] VITALS: BP 116/72; PULSE 62; O2SAT 98; BMI 30.3
== END 2022-10-05 11:57 | disposition home or self-care (01) ==
PROVIDERS: Visit Provider Internal Medicine
DX: E03.9 Hypothyroidism, unspecified (principal); E78.5 Hyperlipidemia, unspecified; I10 Essential (primary) hypertension
CPT/HCPCS: 99214

== ENCOUNTER 2022-12-31 15:18 | Outpatient (REF) | payer MEDICARE, SELFPAY ==
[2022-12-31 17:26] LABS: Cholesterol 154 mg/dL (<200); HDL Cholesterol 66 mg/dL (>40); LDL Cholesterol Calculated 63 mg/dL (<100); Triglycerides 128 mg/dL (<150)
[2022-12-31 17:42] LABS: Thyroid Stimulating Hormone 1.66 uIU/mL (0.32-4.0)
== END 2022-12-31 15:19 | disposition home or self-care (01) ==
LOC: HO.HMGCLDS 15:18
PROVIDERS: PCP Internal Medicine; Visit Provider Internal Medicine
DX: E78.5 Hyperlipidemia, unspecified (principal); E03.9 Hypothyroidism, unspecified
CPT/HCPCS: 36415; 80061; 84443

== ENCOUNTER 2023-01-05 11:35 | Outpatient (AMB) | payer MEDICARE, SELFPAY ==
--- NOTE | 2023-01-05 11:36 | A.OFFPC_ITS ---
Vital Signs 01/05/23 11:37 Height 5 ft 1 in Weight 163 lb 2.273 oz BMI 30.8 BP 122/68 Blood Pressure Location Lt brachial Position Sitting Pulse 60 Pulse Source Pulse Oximeter Pulse Oximetry (%) 99 Oxygen Delivery Method Room Air Intake Visit Reasons: 3mth f/u Allergies ampicillin Allergy (Unknown, Verified 01/05/23 11:37) Unknown erythromycin base Allergy (Unknown, Verified 01/05/23 11:37) Rash lisinopril Adverse Reaction (Intermediate, Verified 01/05/23 11:37) Cough Medication List - Last Reconciled 01/05/23 by Rex Rodriguez MD apixaban (Eliquis) 5 mg PO BID atorvastatin 40 mg PO DAILY ciprofloxacin HCl (Cipro) 250 mg PO BID cyclobenzaprine 5 mg PO TID PRN dicyclomine 20 mg PO QID famotidine 20 mg PO BEDTIME hydrochlorothiazide 25 mg PO DAILY 90 days levothyroxine 50 mcg PO DAILY lorazepam 1 mg PO BID PRN metoprolol succinate ER 50 mg PO DAILY pantoprazole 40 mg PO DAILY sertraline 50 mg PO DAILY Tobacco use date assessed: 10/05/22 Fall risk assessment: 1 Fall in past year Last assessed Fall Risk: 01/05/23 Dental Screening Dental Screen Date: 01/05/23 Did you have a dental visit in the last 12 months?: Yes Did you have a dental problem in the last 6 months where you did not have access to dental care?: No Was dental information given to patient?: Patient has dentist HPI 3mth f/u HPI Details afib hyperlip and hypertension; doing well; compliant [facility] Medical History Obesity Anxiety Shortness of breath HLD (hyperlipidemia) HTN (hypertension) Surgical History Hx of cholecystectomy Hx of hysterectomy Hx of cataract surgery Hx of eye surgery History of foot surgery Hx of thyroidectomy Family History Father No problems noted. Mother No problems noted. Social History Housing: House Alcohol intake: never Patient Tobacco Use Status: Never used Tobacco e-Cigarette/Vaping Use: Never Used Second Hand Smoke Exposure: No service: No Current occupational status: retired Cognitive needs: Yes (cane/walker) Hearing needs: No Vision needs: Yes (reading glasses) Questionnaire PHQ-9 Over the last 2 weeks, how often have you been bothered by any of the following problems? 1. Little interest or pleasure in doing things: several days 2. Feeling down, depressed, or hopeless: more than half the days 3. Trouble falling or staying asleep, or sleeping too much: more than half the days 4. Feeling tired or having little energy: nearly every day 5. Poor appetite or overeating: more than half the days 6. Feeling bad about yourself - or that you are a failure or have let yourself or your family down: nearly every day 7. Trouble concentrating on things, such as reading the newspaper or watching television: not at all 8. Moving or speaking so slowly that other people could have noticed. Or the opposite - being so fidgety or restless that you have been moving around a lot more than usual: not at all 9. Thoughts that you would be better off or of hurting yourself in some way: several days Total score: 14 Depression Screening Interpretation: Positive Depression Screening Done: Yes Source: Developed by Drs. Mann Medeiros, Erick Gusman and colleagues, with an educational zulma from [employer]. Thrive Questionnaire Date Thrive assessed: 07/05/22 AUDIT C Alcohol Use Questionnaire (AUDIT-C) 1. How often do you have a drink containing alcohol?: Never Total Score: 0 Score Reviewed/Action Taken: Yes ERICKA-7 AMB Questionnaire ERICKA-7 Date ERICKA - 7 assessed: 07/05/22 Source: Developed by Drs. Mann Medeiros, Erick Gusman and colleagues, with an educational zulma from [employer]. Review of Systems Const Denies chills, Denies headache(s) and Denies weight loss ENT Denies headache(s) Card Denies chest pain, Denies syncope, Denies irregular heart rhythm and Denies dyspnea Resp Denies chest congestion, Denies cough and Denies dyspnea GI Denies abdominal pain, Denies change in stool character, Denies nausea and Denies vomiting Musc Denies deformity and Denies joint swelling Neuro Denies syncope and Denies headache(s) Physical exam (Primary Care) Vital Signs: Last Vital Signs Pulse 60 01/05/23 11:37 BP 122/68 01/05/23 11:37 Pulse Ox 99 01/05/23 11:37 Oxygen Delivery Method Room Air 01/05/23 11:37 BMI result Body Mass Index 30.8 Tobacco/Smoking Status: Tobacco use Status Tobacco use date assessed 10/05/22 01/05/23 11:46 Patient Tobacco Use Status Never used Tobacco 01/05/23 11:46 e-Cigarette/Vaping Use Never Used 01/05/23 11:46 PHQ-9: PHQ-9 Score PHQ-9: Total score 14 01/05/23 11:46 Depression Screening Interpretation: Positive Thrive Assessment: Date of Thrive Assessment Date Thrive assessed 07/05/22 01/05/23 11:46 Const General: cooperative, comfortable, no acute distress and alert Neck Neck: Yes no lymphadenopathy Thyroid: Thyroid normal Resp Effort & Inspection: normal respiratory effort Auscultation: clear to auscultation bilaterally Percussion: percussion normal Cardio Jugular venous distension: no JVD Palpation: normal PMI Rate: regular rate Rhythm: regular rhythm Heart sounds: S1 normal heart sound present and S2 normal heart sound present GI Inspection: Yes normal to inspection Palpation (GI): No hepatosplenomegaly present Skin General skin exam: no rashes or lesions noted Extrem General: Yes no clubbing, cyanosis or edema Assessment and Plan Assessment & Plan (1) HLD (hyperlipidemia): Code(s): E78.5 - Hyperlipidemia, unspecified Plan: stable; same rx (2) HTN (hypertension): Code(s): I10 - Essential (primary) hypertension Plan: stable; same rx (3) Paroxysmal A-fib: Code(s): I48.0 - Paroxysmal atrial fibrillation Plan: stable; same rx Orders: Orders Lipid Panel Today E78.5 - Hyperlipidemia, unspecified Thyroid Stimulating Hormone Today E03.9 - Hypothyroidism, unspecified Coding Level of Care Code Est Pt Level 4 (93106) Diagnoses HLD (hyperlipidemia) E78.5 HTN (hypertension) I10 Paroxysmal A-fib I48.0
[2023-01-05 11:37] VITALS: BP 122/68; PULSE 60; O2SAT 99; BMI 30.8
== END 2023-01-05 12:06 | disposition home or self-care (01) ==
PROVIDERS: PCP Internal Medicine; Visit Provider Internal Medicine
DX: E78.5 Hyperlipidemia, unspecified (principal); I10 Essential (primary) hypertension; I48.0 Paroxysmal atrial fibrillation
CPT/HCPCS: 99214

== ENCOUNTER → 2023-02-23 09:56 | Outpatient (REF) | payer MEDICARE, SELFPAY ==
--- NOTE | ~2023-02-23 | NM_ITS ---
Myocardial perfusion study Indication: Cardiovascular risk stratification with chest pain Technique: The patient was brought in for a Lexiscan perfusion study on 02/23/2023. Patient performed low-level exercise and was injected 0.4 mg of Lexiscan intravenously. Within a minute of injection, any 5 mCi of sestamibi was given intravenously. Images were obtained using the SPECT gamma camera interlaced with the gating device. Images were obtained in supine position. Resting perfusion study was performed on 02/24/2023. Patient was administered 25 mCi of sestamibi intravenously at rest. Images were then obtained in supine position. Images obtained with and without CT attenuation. Total DLP 147 mGy-cm. Images were processed with the software and compared side to side in short axis, horizontal long axis and vertical long axis views. Findings: The stress perfusion study showed non attenuated images show minimally reduced uptake in the lateral wall of the LV myocardium. Remainder of the LV myocardium is normally perfused. Attenuation corrected images show mildly reduced uptake in the distal anterior wall of the LV myocardium. There is suggestion of left ventricle hypertrophy. The gated study shows normal LV systolic function with calculated LVEF of greater than 70%. LV cavity is normal in size. The gated study shows normal systolic wall thickening and contraction of segments. Resting study shows no change in perfusion pattern compared to stress perfusion study. Gating at rest reveals normal systolic wall motion with ejection fraction at greater than 70%. The findings are consistent with no clear reversible defect suggestive of ischemia likely normal myocardial perfusion. NM/NM brendan perf SPECT rest & str Impression: 1. Myocardial perfusion imaging study shows likely normal myocardial perfusion 2. Gated LVEF is greater than 70% 3. Transient ischemic dilatation not present EKG is nondiagnostic for ischemia
--- NOTE | 2023-02-23 09:59 | CA_ITS ---
Acquisition Time: 2023-02-23 10:07:29 Total Exercise Time: 00:02:00 Test Indications: AFIB Medications: SEE H Protocol: LEXISCAN Max HR: 093 BPM 69% of Pred: 134 BPM Max BP: 134/078 mmHG Max Work Load: 1.0 METS Pharmacological stress test with Lexiscan injecton while sitting and kicking her legs, with mild SOB, no chest discomfort without arrhythmais, with normotensive repsonse to injection, with nondiagnoisitic EKGs. Aminophylline 75mg IVP given to reverse Lexiscan. Nuclear images pending. Test reviewed [facility] Dr. Guadalupe. Referred By: Philip Tillman Overread By: Kelsie Calixto
== END ==
LOC: HO.CARD 09:56
PROVIDERS: PCP Internal Medicine; Visit Provider Internal Medicine Cardiovascular Disease
DX: Z01.818 Encounter for other preprocedural examination (principal); I48.0 Paroxysmal atrial fibrillation; I10 Essential (primary) hypertension; R06.02 Shortness of breath
CPT/HCPCS: 78452; 93017; A9500; J0280; J2785

== ENCOUNTER → 2023-02-23 09:59 | Outpatient (BNV) | payer MEDICARE, SELFPAY | PROVIDERS: PCP Internal Medicine; Visit Provider Nurse Practitioner | DX: I48.0 Paroxysmal atrial fibrillation (principal); R06.02 Shortness of breath | CPT/HCPCS: 78452; 93016; 93018 ==

== ENCOUNTER 2023-03-01 09:18 | Outpatient (AMB) | payer MEDICARE, SELFPAY ==
[2023-03-01 10:59] VITALS: BP 120/80; PULSE 98; TEMP 36.5; O2SAT 98; BMI 29.5
--- NOTE | 2023-03-01 10:59 | MHC.OFFWIV ---
Intake Vital Signs 03/01/23 10:59 Height 5 ft 1 in Weight 156 lb BMI 29.5 BP 120/80 Blood Pressure Location Lt brachial Position Sitting Pulse 98 Pulse Source Pulse Oximeter Temp 97.7 F Temp Source Temporal Artery Scan Pulse Oximetry (%) 98 Oxygen Delivery Method Room Air Intake Visit Reasons: EST/sob/bronchitis(lobby masked) Intake Note: pt is here today for sob,bronchitis started 02/25 Patient Tobacco Use Status: Never used Tobacco Allergies ampicillin Allergy (Unknown, Verified 03/01/23 11:00) Unknown erythromycin base Allergy (Unknown, Verified 03/01/23 11:00) Rash lisinopril Adverse Reaction (Intermediate, Verified 03/01/23 11:00) Cough Do you need a note to return to daycare/school/sports/work: No HPI HPI Comments History of Present Illness Details Patient is an 87-year-old female in today for a sick visit. She has a past medical history significant for asthma, hypertension, hyperlipidemia, proximal AFib. Patient states that for the past 4 days she has developed cough, dyspnea on exertion, subjective fever, and sore throat. She denies chest pain, shortness a breath, dizziness, vomiting, or diarrhea. She denies travel or anyone else in the home being sick, however, she has been frequently going to [facility] for pre surgical testing for knee replacement and noticed she felt sick after these visits to the hospital. She has used Mucinex and Tylenol with little effect. She feels like she has mucus in her throat and lungs is not able to expectorate. Patient will have in office respiratory swab, chest x-ray, and nebulizer treatment. [facility] Medical History Obesity Anxiety Shortness of breath HLD (hyperlipidemia) HTN (hypertension) Surgical History Hx of cholecystectomy Hx of hysterectomy Hx of cataract surgery Hx of eye surgery History of foot surgery Hx of thyroidectomy Family History Father No problems noted. Mother No problems noted. Social History Housing: House Alcohol intake: never Patient Tobacco Use Status: Never used Tobacco e-Cigarette/Vaping Use: Never Used Second Hand Smoke Exposure: No service: No Current occupational status: retired Cognitive needs: Yes (cane/walker) Hearing needs: No Vision needs: Yes (reading glasses) Review of Systems Const Details: Constitutional : No Weight loss, Admits subjective Fever, No Chills, Admits Fatigue. ENT/Mouth : Admits sore throat, No Rhinorrhea. Eyes: No Eye Pain, No Swelling, No Redness Cardiovascular : No Chest Pain, No SOB, Admits some Dyspnea on Exertion, No Orthopnea, No Edema, No Palpitations Respiratory : Admits Cough, No Sputum, No Wheezing Gastrointestinal : No Nausea, No Vomiting, No Diarrhea, No Constipation, No abdominal Pain, No Hematochezia, No Melena Neuro : No Weakness, No Numbness, No Dizziness, No Headache Psych : No Anxiety/Panic, No Depression All other systems reviewed and are negative Physical Exam Vital Signs: Last Vital Signs Temp 97.7 F 03/01/23 10:59 Pulse 98 03/01/23 10:59 BP 120/80 03/01/23 10:59 Pulse Ox 98 03/01/23 10:59 Oxygen Delivery Method Room Air 03/01/23 10:59 BMI result Body Mass Index 29.5 Vital signs have been reviewed and are stable Const Other: Appearance: Alert.? Oriented X3.? No acute distress.? ENT: Pharynx cobblestoned. No nasal discharge. ? Neck: Normal inspection.? Neck supple.? CVS: Normal heart rate.? Pulses normal.? Respiratory: No respiratory distress.?Breath sounds diminished bilaterally. ? Neuro: Oriented X 3.? No motor deficit.? No sensory deficit. CN 2-12 intact Office Procedures Nebulizer Treatment Nebulizer Treatment [id number] RX initial, or Nebulizer Subsequent Treatment Office Meds ipratropium 0.5 mg-albuterol 3 mg (2.5 mg base)/3 mL nebulization soln Performing Provider: CANDICE Dickerson Performing Location: [facility] [place] Walk In [facility] Administered by: CANDICE Dickerson on 03/01/23 12:30 Dose Route Admin Location Dispensed Lot Number Expiration Date NDC Director Search 3 mL inhalation 3 mL [id number] 12/13/23 9613-3168-24 NEPHRON PAULINA Assessment & Plan Assessment & Plan (1) Pneumonia: Comment: Patient will be given prednisone and level floxacillin to be taken as directed. Patient has been educated on the side effects of these medication. She has been educated on signs of worsening symptoms and when to present back to the walk-in clinic or when to present to the emergency room. Patient is agreeable to this plan Code(s): J18.9 - Pneumonia, unspecified organism Qualifiers: Pneumonia type: due to unspecified organism Laterality: bilateral Lung location: lower lobe of lung Qualified Code(s): J18.9 - Pneumonia, unspecified organism Plan: Patient will take full course of medication and follow-up with PCP. Plan Patient should take the medication as prescribed. She has been educated on signs of worsening symptoms, when to present to the walk-in or when to return to the ER. Patient should follow-up with her primary care physician Orders: Orders SARS-CoV2/FLU/RSV Today J06.9 - Acute upper respiratory infection, unspecified XR chest 2V Today R05.9 - Cough, unspecified AMB Nebulizer Treatment Today R05.9 - Cough, unspecified Medications: New prednisone 20 mg PO DAILY 5 tabs 0RF levofloxacin 750 mg PO DAILY 7 tabs 0RF Discontinued ciprofloxacin HCl (Cipro) Discontinued Reason: Patient Completed Course 250 mg PO BID 10 tabs 0RF Coding Level of Care Code Est Pt Level 3 (50006) Diagnoses Pneumonia of both lower lobes due to infectious organism J18.9 Pneumonia type: due to unspecified organism Laterality: bilateral Lung location: lower lobe of lung CPT Codes Nebulizer Treatment - Nebulizer Treatment, initial or subsequent: [id number] RX initial, or Nebulizer Subsequent Treatment ([id number]) Time Spent (min) 30
== END 2023-03-01 12:42 | disposition home or self-care (01) ==
PROVIDERS: PCP Internal Medicine; Visit Provider Nurse Practitioner Primary Care
DX: R05.9 Cough, unspecified (principal)
CPT/HCPCS: 94640; 99213; J7620

== ENCOUNTER 2023-03-01 11:34 | Outpatient (REF) | payer MEDICARE, SELFPAY ==
--- NOTE | ~2023-03-01 | XR_ITS ---
EXAMINATION: XR CHEST CLINICAL INFORMATION: Cough COMPARISON: 07/22/2022 TECHNIQUE: 2 views of the chest were obtained. FINDINGS: Left mid lung platelike atelectasis. Persistent mildly increased perihilar markings/atelectasis. Mild biapical pleural thickening. Heart and mediastinum within normal limits. Aortic calcifications again seen. No vascular congestion, consolidations or effusions. Multilevel flowing osteophytes and demineralization. XR/XR chest 2V IMPRESSION: Atelectasis. No consolidations or failure.
== END 2023-03-01 11:35 | disposition home or self-care (01) ==
LOC: HO.HMGCX 11:34
PROVIDERS: PCP Internal Medicine; Visit Provider Nurse Practitioner Primary Care
DX: R05.9 Cough, unspecified (principal); J06.9 Acute upper respiratory infection, unspecified; Z20.822 Contact with and (suspected) exposure to COVID-19
CPT/HCPCS: 0241U; 71046

== ENCOUNTER 2023-03-01 13:56 | Outpatient (REF) | payer MEDICARE, SELFPAY ==
[2023-03-01 15:09] LABS: Influenza A PCR NEGATIVE (Negative); Influenza B PCR NEGATIVE (Negative); Resp Syncy Virus RNA Qual PCR POSITIVE (Negative); SARS COV2 PCR INHOUSE NEGATIVE (Negative)
== END 2023-03-01 13:57 | disposition home or self-care (01) ==
LOC: HO.LNP 13:56
PROVIDERS: Visit Provider Nurse Practitioner Primary Care
DX: Z13.89 Encounter for screening for other disorder (principal)
CPT/HCPCS: 0241U

== ENCOUNTER 2023-03-10 14:21 | Emergency (ER) | payer MEDICARE, SELFPAY ==
--- NOTE | ~2023-03-10 | XR_ITS ---
EXAMINATION: XR CHEST CLINICAL INFORMATION: Pneumonia follow-up COMPARISON: 03/01/2023 TECHNIQUE: 2 views of the chest were obtained. FINDINGS: Slight improved aeration in the left mid and lower lung. Lungs otherwise clear. Heart and pulmonary vessels are normal. XR/XR chest 2V IMPRESSION: Interval improvement. No active disease on today's study.
[2023-03-10 14:38] VITALS: BP 140/70; BP 148/77; PULSE 69; PULSE 76; RESP 18; TEMP 36.8; O2SAT 97; O2SAT 98; BMI 30.4
--- NOTE | 2023-03-10 14:42 | ECG_ITS ---
Test Reason : SOB Blood Pressure : / mmHG Vent. Rate : 066 BPM Atrial Rate : 066 BPM P-R Int : 184 ms QRS Dur : 064 ms QT Int : 412 ms P-R-T Axes : 097 001 005 degrees QTc Int : 431 ms Artifact in tracing Normal sinus rhythm Normal ECG When compared with ECG of 24-JUN-2022 16:51, No significant change was found Referred By: Mahad Luna Electronically Signed By:LEXUS ROSADO
[2023-03-10 15:05] LABS: MANUAL DIFF FLAG NO
[2023-03-10 15:06] LABS: Basophils Percent Auto 0.3 % (0-2); Eosinophils Absolute Auto 0.1 X10*3/uL (0.0-0.4); Eosinophils Percent Auto 1.2 % (0-4); Hematocrit 39.6 % (37.0-47.0); Hemoglobin 13.6 g/dl (12.0-16.0); Imm Gran Abs Auto 0.04 X10*3/uL (0.00-0.03); Imm Gran Pct Auto 0.5 % (0.0-0.4); Lymphocytes Absolute Auto 2.4 X10*3/uL (1.2-4.9); Lymphocytes Percent Auto 32.9 % (20-40); Mean Corpuscular HGB Conc 34.3 g/dl (31.0-35.0); Mean Corpuscular Hemoglobin 29.8 pg (27.0-33.0); Mean Corpuscular Volume 86.7 fL (80.0-98.0); Mean Platelet Volume 10.5 fL (9.4-12.3); Monocytes Absolute Auto 0.4 X10*3/uL (0.1-1.2); Neutrophils Absolute Auto 4.3 x10*3/uL (2.0-8.3); Neutrophils Percent Auto 59.1 % (45-73); Platelet Count 223 X10*3/uL (160-400); Red Blood Count 4.57 X10*6/uL (4.20-5.50); Red Cell Distribution Width 14.1 % (11.0-16.0); White Blood Count 7.4 X10*3/uL (4.8-10.8)
[2023-03-10 15:18] LABS: Anion Gap 14 (12-20); Blood Urea Nitrogen 12 mg/dL (9-16); Calcium 8.5 mg/dL (8.4-10.2); Carbon Dioxide 29 mmol/L (22-29); Chloride 98 mmol/L (96-108); Creatinine Clr Calc Pharmacy 46.2; Estimated Glomerular Filt Rate > 60; Glucose Random 147 mg/dL (60-115); Potassium 2.8 mmol/L (3.3-5.1); Sodium 138 mmol/L (135-145)
[2023-03-10 15:44] LABS: Influenza A PCR NEGATIVE (Negative); Influenza B PCR NEGATIVE (Negative); Resp Syncy Virus RNA Qual PCR NEGATIVE (Negative); SARS COV2 PCR INHOUSE NEGATIVE (Negative)
--- NOTE | 2023-03-10 15:57 | ED_ITS ---
HPI - General Adult General Chief complaint: General Medical Stated complaint: GEN WEAK,RECENT PNA FROM HOME PER EMS Time Seen by Provider: 03/10/23 14:34 Source: patient Mode of arrival: ambulatory Limitations: no limitations History of Present Illness HPI narrative: Patient recently finished her abx for pneumonia, still feeling weak with occaisional cough Onset (ago): week(s) Related Data Home Medications Medication Instructions Recorded Confirmed dicyclomine 20 mg tablet 20 mg PO QID 08/17/22 01/05/23 Previous Rx's Medication Instructions Recorded cyclobenzaprine 5 mg tablet 5 mg PO TID PRN muscle spasm #20 03/05/21 tabs levothyroxine 50 mcg tablet 50 mcg PO DAILY #90 tabs 05/17/22 sertraline 50 mg tablet 50 mg PO DAILY #90 tabs 05/17/22 atorvastatin 40 mg tablet 40 mg PO DAILY #90 tabs 05/20/22 famotidine 20 mg tablet 20 mg PO BEDTIME #30 tabs 06/24/22 hydrochlorothiazide 25 mg tablet 25 mg PO DAILY 90 days #90 tabs 08/04/22 metoprolol succinate 50 mg 50 mg PO DAILY #90 tabs 12/03/22 tablet,extended release 24 hr apixaban 5 mg tablet (Eliquis) 5 mg PO BID #60 tabs 12/13/22 lorazepam 1 mg tablet 1 mg PO BID PRN anxiety #60 tabs 12/13/22 pantoprazole 40 mg tablet,delayed 40 mg PO DAILY #90 tabs 12/31/22 release tizanidine 4 mg tablet 4 mg PO Q8H PRN muscle spasticity 02/01/23 #60 tabs levofloxacin 750 mg tablet 750 mg PO DAILY #7 tabs 03/01/23 prednisone 20 mg tablet 20 mg PO DAILY #5 tabs 03/01/23 albuterol sulfate 90 mcg/actuation 2 puff inhalation QID PRN 03/10/23 aerosol inhaler shortness of breath or wheezing #8.5 grams potassium chloride 20 mEq 20 meq PO DAILY #30 tabs 03/10/23 tablet,extended release Allergies Allergy/AdvReac Type Severity Reaction Status Date / Time ampicillin Allergy Unknown Unknown Verified 03/01/23 11:00 erythromycin base Allergy Unknown Rash Verified 03/01/23 11:00 lisinopril AdvReac Intermediate Cough Verified 03/01/23 11:00 Review of Systems 2 Review of Systems: Yes all other systems are reviewed and are negative Neurologic: Denies Sensory deficit (Neuro) [facility] Past Medical History Medical History Obesity Anxiety Shortness of breath HLD (hyperlipidemia) HTN (hypertension) Surgical History Hx of cholecystectomy Hx of hysterectomy Hx of cataract surgery Hx of eye surgery History of foot surgery Hx of thyroidectomy Family History Family History Father No problems noted. Mother No problems noted. Social History Social History Housing: House Alcohol intake: current Patient Tobacco Use Status: Never used Tobacco Smoked in Last 30 Days: No e-Cigarette/Vaping Use: Never Used Second Hand Smoke Exposure: No Use of substances other than those prescribed or required for medical reasons: No Advance Directives: No Advance Directives Information Provided: Yes service: No Current occupational status: retired Cognitive needs: Yes (cane/walker) Hearing needs: No Vision needs: Yes (reading glasses) Physical Exam ED Vital Signs: Vital Signs - 24 hr 03/10/23 14:38 Temperature 98.3 F Pulse Rate 69 Respiratory Rate 18 Blood Pressure 148/77 H Pulse Oximetry 97 Oxygen Delivery Method Room Air BMI result Body Mass Index 30.4 Const General: healthy appearing Nutritional Appearance: average body habitus Orientation/consciousness: oriented to person and patient oriented x3 Limitations: no limitations HENMT Head: Yes normal to inspection Ears: external ears normal General nose exam: Normal external nose present Mouth: Normal oral and palatal mucosa present and oropharynx normal Throat: Yes posterior oropharynx normal Eyes General: appearance normal, both eyes and all related structures Neck Neck: Yes normal visual inspection Chest Chest palpation & inspection: normal inspection of the chest Resp Auscultation: clear to auscultation bilaterally Cardio Jugular venous distension: no JVD Rate: regular rate Rhythm: regular rhythm Heart sounds: S1 normal heart sound present and S2 normal heart sound present GI Inspection: Yes normal to inspection Palpation (GI): Soft to palpation, nontender and No hepatosplenomegaly present Auscultation: normal bowel sounds General: Yes no CVA tenderness Back/Spine/Pelvis Back: no CVA tenderness Skin General skin exam: no rashes or lesions noted Neuro General: oriented to person and patient oriented x3 Cranial nerves: Yes CN's II-XII intact bilaterally Motor exam (neuro): 5/5 motor strength present throughout Sensory Exam: No Sensory deficit (Neuro) Extrem General: Yes normal to inspection Psych Appearance: grossly normal Course Reevaluation(s) Reevaluation #1: Patient feeling weak likely due to low potassium and poor nutrition Time: 16:04 Medications Administered Discontinued Medications Generic Name Dose Route Start Last Admin Trade Name Freq PRN Reason Stop Dose Admin Potassium Chloride 20 meq 03/10/23 16:07 03/10/23 16:20 Potassium Chloride Er 20 Meq Tab.Er.Prt PO 03/10/23 16:08 20 meq ONCE ONE Administration Medical Decision Making Differential Diagnosis Differential Diagnoses: The differential diagnosis associated with the presentation includes (pneumonia, COVID, influenza, RSV, electrolyte abnormality were all considered) Admission/Observation Consideration of admission/observation: Escalation of care including admission/observation considered (upon arrival patient was considered for admission) Lab Data MDM Lab Attestation statement: I reviewed the patient's lab results. (low potassium noted) 03/10/23 15:00 03/10/23 15:00 Labs: Lab Results 03/10/23 Range/Units 15:00 WBC 7.4 (4.8-10.8) X10*3/uL RBC 4.57 (4.20-5.50) X10*6/uL Hgb 13.6 (12.0-16.0) g/dl Hct 39.6 (37.0-47.0) % MCV 86.7 (80.0-98.0) fL MCH 29.8 (27.0-33.0) pg MCHC 34.3 (31.0-35.0) g/dl RDW 14.1 (11.0-16.0) % Plt Count 223 (160-400) X10*3/uL MPV 10.5 (9.4-12.3) fL Immature Gran % (Auto) 0.5 H (0.0-0.4) % Neut % (Auto) 59.1 (45-73) % Lymph % (Auto) 32.9 (20-40) % [place] % (Auto) 6.0 (2-11) % Eos % (Auto) 1.2 (0-4) % Baso % (Auto) 0.3 (0-2) % Lymph # (Auto) 2.4 (1.2-4.9) X10*3/uL [place] # (Auto) 0.4 (0.1-1.2) X10*3/uL Eos # (Auto) 0.1 (0.0-0.4) X10*3/uL Baso # (Auto) 0.0 (0.0-0.2) X10*3/uL Abs Immat Gran (auto) 0.04 H (0.00-0.03) X10*3/uL Absolute Neuts (auto) 4.3 (2.0-8.3) x10*3/uL Absolute Nucleated RBC 0.000 (0.0-0.012) X10*3/uL Nucleated RBC % (auto) 0.0 (0.0-0.2) /100WBC Sodium 138 (135-145) mmol/L Potassium 2.8 L (3.3-5.1) mmol/L Chloride 98 (96-108) mmol/L Carbon Dioxide 29 (22-29) mmol/L Anion Gap 14 (12-20) BUN 12 (9-16) mg/dL Creatinine 0.83 (0.5-1.4) mg/dL Estim Creat Clear Calc 46.2 Estimated GFR > 60 Random Glucose 147 H (60-115) mg/dL Calcium 8.5 D (8.4-10.2) mg/dL Magnesium 1.7 (1.6-2.6) mg/dL Influenza Type A (PCR) NEGATIVE (Negative) Influenza Type B (PCR) NEGATIVE (Negative) RSV RNA Qual (PCR) NEGATIVE (Negative) SARS-CoV-2 RNA (RT-PCR) NEGATIVE (Negative) Independent Interpretation I performed an independent interpretation of an: EKG (sinus 65, no st or twave changes) and Plain X-Ray (no infiltrate) External Record Review External record reviewed: Outpatient record Prescription Management I considered prescription management with: Antibiotic (no infiltrate seen so no abx ordered) Chronic Conditions Patient?s care impacted by: Hypertension and Other (advanced age) Discharge Plan Discharge Clinical Impression: Acute hypokalemia Patient Disposition: Home, Self-Care Instructions: Hypokalemia (ED) Prescriptions: New potassium chloride 20 mEq tablet extended release 20 meq PO DAILY Qty: 30 0RF albuterol sulfate 90 mcg/actuation HFA aerosol inhaler 2 puff inhalation QID PRN (Reason: shortness of breath or wheezing) Qty: 8.5 0RF No Action sertraline 50 mg tablet 50 mg PO DAILY Qty: 90 8RF levothyroxine 50 mcg tablet 50 mcg PO DAILY Qty: 90 8RF atorvastatin 40 mg tablet 40 mg PO DAILY Qty: 90 8RF hydrochlorothiazide 25 mg tablet 25 mg PO DAILY 90 Days Qty: 90 3RF metoprolol succinate 50 mg tablet extended release 24 hr 50 mg PO DAILY Qty: 90 3RF lorazepam 1 mg tablet 1 mg PO BID PRN (Reason: anxiety) Qty: 60 5RF Eliquis 5 mg tablet 5 mg PO BID Qty: 60 5RF pantoprazole 40 mg tablet,delayed release (DR/EC) 40 mg PO DAILY Qty: 90 3RF tizanidine 4 mg tablet 4 mg PO Q8H PRN (Reason: muscle spasticity) Qty: 60 3RF famotidine 20 mg tablet 20 mg PO BEDTIME Qty: 30 0RF cyclobenzaprine 5 mg tablet 5 mg PO TID PRN (Reason: muscle spasm) Qty: 20 0RF prednisone 20 mg tablet 20 mg PO DAILY Qty: 5 0RF levofloxacin 750 mg tablet 750 mg PO DAILY Qty: 7 0RF dicyclomine 20 mg tablet 20 mg PO QID Referrals: Rex Rodriguez MD [Primary Care Provider] - 1 week
[2023-03-10] MEDS: Potassium Chloride ER 20 MEQ TAB.ER.PRT PO (16:20)
--- NOTE | 2023-03-10 16:25 | PC.NURSE ---
called [facility] to pick pt up
[2023-03-10 16:26] LABS: Magnesium 1.7 mg/dL (1.6-2.6)
== END 2023-03-10 17:55 | disposition home or self-care (01) ==
PROVIDERS: Emergency Provider Emergency Medicine; PCP Internal Medicine
DX: R53.1 Weakness (principal); R06.02 Shortness of breath; R05.9 Cough, unspecified; E87.6 Hypokalemia; Z20.822 Contact with and (suspected) exposure to COVID-19; Z20.828 Contact with and (suspected) exposure to other viral communicable diseases; Z79.899 Other long term (current) drug therapy
CPT/HCPCS: 0241U; 71046; 80048; 83735; 85025; 93005; 99283; 99284

== ENCOUNTER → 2023-03-10 14:42 | Outpatient (BNV) | payer MEDICARE, SELFPAY | PROVIDERS: Emergency Provider Emergency Medicine; PCP Internal Medicine; Visit Provider Internal Medicine | DX: R06.02 Shortness of breath (principal) | CPT/HCPCS: 93010 ==

== ENCOUNTER 2023-04-13 14:23 | Outpatient (AMB) | payer MEDICARE, SELFPAY ==
[2023-04-13 14:24] VITALS: BP 126/80; PULSE 70; O2SAT 98; BMI 29.6
--- NOTE | 2023-04-13 14:24 | MHC.PC.OV ---
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: Not Required per policy Accompanied by: Self / Same As Patient Allergies ampicillin Allergy (Unknown, Verified 04/13/23 14:24) Unknown erythromycin base Allergy (Unknown, Verified 04/13/23 14:24) Rash lisinopril Adverse Reaction (Intermediate, Verified 04/13/23 14:24) Cough Medication List - Last Reconciled 04/14/23 by Rex Rodriguez MD albuterol sulfate 90 mcg/actuation 2 puffs inhalation QID PRN apixaban (Eliquis) 5 mg PO BID atorvastatin 40 mg PO DAILY cyclobenzaprine 5 mg PO TID PRN dicyclomine 20 mg PO QID famotidine 20 mg PO BEDTIME hydrochlorothiazide 25 mg PO DAILY 90 days levofloxacin 750 mg PO DAILY levothyroxine 50 mcg PO DAILY lorazepam 1 mg PO BID PRN metoprolol succinate ER 50 mg PO DAILY pantoprazole 40 mg PO DAILY potassium chloride ER 20 mEq PO DAILY prednisone 20 mg PO DAILY sertraline 50 mg PO DAILY tizanidine 4 mg PO Q8H PRN Tobacco use date assessed: 04/13/23 Fall risk assessment: No Falls in past year Last assessed Fall Risk: 04/13/23 Dental Screening Dental Screen Date: 04/13/23 Did you have a dental visit in the last 12 months?: Yes Did you have a dental problem in the last 6 months where you did not have access to dental care?: No Was dental information given to patient?: Patient has dentist HPI 3M Follow up ( meds) HPI Details HTN hyperlip and afib; stable on rx; compliant PFSH Medical History Obesity Anxiety Shortness of breath HLD (hyperlipidemia) HTN (hypertension) Surgical History Hx of cholecystectomy Hx of hysterectomy Hx of cataract surgery Hx of eye surgery History of foot surgery Hx of thyroidectomy Family History Father No problems noted. Mother No problems noted. Social History Housing: House Alcohol intake: current Patient Tobacco Use Status: Never used Tobacco e-Cigarette/Vaping Use: Never Used Second Hand Smoke Exposure: No service: No Current occupational status: retired Cognitive needs: Yes (cane/walker) Hearing needs: No Vision needs: Yes (reading glasses) Questionnaire PHQ-9 Over the last 2 weeks, how often have you been bothered by any of the following problems? 1. Little interest or pleasure in doing things: several days 2. Feeling down, depressed, or hopeless: more than half the days 3. Trouble falling or staying asleep, or sleeping too much: more than half the days 4. Feeling tired or having little energy: nearly every day 5. Poor appetite or overeating: more than half the days 6. Feeling bad about yourself - or that you are a failure or have let yourself or your family down: nearly every day 7. Trouble concentrating on things, such as reading the newspaper or watching television: not at all 8. Moving or speaking so slowly that other people could have noticed. Or the opposite - being so fidgety or restless that you have been moving around a lot more than usual: not at all 9. Thoughts that you would be better off or of hurting yourself in some way: several days Total score: 14 Depression Screening Interpretation: Positive Depression Screening Done: Yes Source: Developed by Drs. Mann Medeiros, Hetal Johnson, Erick Tellez and colleagues, with an educational zulma from [employer]. Thrive Questionnaire Date Thrive assessed: 04/13/23 I am a: Patient What is your living situation today?: I have a steady place to live Within the past 12 months, did the food you bought not last and you didn't have the money to get more?: Never true Within the past 12 months, did you worry whether your food would run out before you got money to buy more?: Never true Do you have trouble paying for medicines?: No Do you have trouble getting transportation to medical appointments?: No Do you have trouble paying your heating and electricity bill?: No Do you have trouble taking care of your child, family member or friend?: No Do you have trouble with day-to-day activities such as bathing, preparing meals, shopping, managing finances, etc.?: No Are you currently unemployed and looking for a job?: No Are you interested in more education?: No Please select the resources that you would like help with: None THRIVE Score: 0 AUDIT C Alcohol Use Questionnaire (AUDIT-C) 1. How often do you have a drink containing alcohol?: Never Total Score: 0 Score Reviewed/Action Taken: Yes ERICKA-7 AMB Questionnaire ERICKA-7 Date ERICKA - 7 assessed: 04/13/23 Feeling nervous, anxious, or on edge: 0 = Not at all Not being able to stop or control worryin = Not at all Worrying too much about different things: 0 = Not at all Trouble relaxin = Not at all Being so restless that it is hard to sit still: 0 = Not at all Becoming easily annoyed or irritable: 0 = Not at all Feeling afraid as if something awful might happen: 0 = Not at all Total ERICKA-7 score (0-4 normal; 5-9 mild; 10-14 moderate; 15-21 severe): 0 Source: Developed by Drs. Mann Medeiros, Hetal Johnson, Erick Tellez and colleagues, with an educational zulma from [employer]. Review of Systems Const Denies chills, Denies headache(s) and Denies weight loss ENT Denies headache(s) Card Denies chest pain, Denies syncope, Denies irregular heart rhythm and Denies dyspnea Resp Denies chest congestion, Denies cough and Denies dyspnea GI Denies abdominal pain, Denies change in stool character, Denies nausea and Denies vomiting Musc Denies deformity and Denies joint swelling Neuro Denies syncope and Denies headache(s) Physical exam (Primary Care) Vital Signs: Last Vital Signs Pulse 70 04/13/23 14:24 BP 126/80 04/13/23 14:24 Pulse Ox 98 04/13/23 14:24 Oxygen Delivery Method Room Air 04/13/23 14:24 BMI result Body Mass Index 29.6 Tobacco/Smoking Status: Tobacco use Status Tobacco use date assessed 04/13/23 04/13/23 14:29 Patient Tobacco Use Status Never used Tobacco 04/13/23 14:29 e-Cigarette/Vaping Use Never Used 04/13/23 14:29 PHQ-9: PHQ-9 Score PHQ-9: Total score 14 04/13/23 14:36 Depression Screening Interpretation: Positive Thrive Assessment: Date of Thrive Assessment Date Thrive assessed 04/13/23 04/13/23 14:29 Const General: cooperative, comfortable, no acute distress and alert Neck Neck: Yes no lymphadenopathy Thyroid: Thyroid normal Resp Effort & Inspection: normal respiratory effort Auscultation: clear to auscultation bilaterally Percussion: percussion normal Cardio Jugular venous distension: no JVD Palpation: normal PMI Rate: regular rate Rhythm: regular rhythm Heart sounds: S1 normal heart sound present and S2 normal heart sound present GI Inspection: Yes normal to inspection Palpation (GI): No hepatosplenomegaly present Skin General skin exam: no rashes or lesions noted Extrem General: Yes no clubbing, cyanosis or edema Assessment and Plan Assessment & Plan (1) HTN (hypertension): Code(s): I10 - Essential (primary) hypertension Plan: stable; same rx (2) Paroxysmal A-fib: Code(s): I48.0 - Paroxysmal atrial fibrillation Plan: stable; same rx (3) HLD (hyperlipidemia): Code(s): E78.5 - Hyperlipidemia, unspecified Plan: stable; same rx Orders: Orders Complete Blood Count Auto Diff 04/13/23 D64.9 - Anemia, unspecified Comprehensive [place]. Panel Fast 04/13/23 N28.9 - Disorder of kidney and ureter, unspecified Lipid Panel 04/13/23 E78.5 - Hyperlipidemia, unspecified Thyroid Stimulating Hormone 04/13/23 E03.9 - Hypothyroidism, unspecified Coding Level of Care Code Est Pt Level 4 (48703) Diagnoses HTN (hypertension) I10 Paroxysmal A-fib I48.0 HLD (hyperlipidemia) E78.5
== END 2023-04-13 14:55 | disposition home or self-care (01) ==
PROVIDERS: PCP Internal Medicine; Visit Provider Internal Medicine
DX: I10 Essential (primary) hypertension (principal); I48.0 Paroxysmal atrial fibrillation; E78.5 Hyperlipidemia, unspecified
CPT/HCPCS: 99214

== ENCOUNTER 2023-04-15 14:36 | Outpatient (REF) | payer MEDICARE, SELFPAY ==
[2023-04-15 16:18] LABS: MANUAL DIFF FLAG NO
[2023-04-15 16:30] LABS: Basophils Percent Auto 0.7 % (0-2); Eosinophils Absolute Auto 0.1 X10*3/uL (0.0-0.4); Eosinophils Percent Auto 1.7 % (0-4); Hematocrit 43.3 % (37.0-47.0); Hemoglobin 14.3 g/dl (12.0-16.0); Imm Gran Abs Auto 0.02 X10*3/uL (0.00-0.03); Imm Gran Pct Auto 0.3 % (0.0-0.4); Lymphocytes Absolute Auto 2.5 X10*3/uL (1.2-4.9); Lymphocytes Percent Auto 41.3 % (20-40); Mean Corpuscular Hemoglobin 29.6 pg (27.0-33.0); Mean Corpuscular Volume 89.6 fL (80.0-98.0); Mean Platelet Volume 11.4 fL (9.4-12.3); Monocytes Absolute Auto 0.4 X10*3/uL (0.1-1.2); Monocytes Percent Auto 7.2 % (2-11); Neutrophils Absolute Auto 2.9 x10*3/uL (2.0-8.3); Neutrophils Percent Auto 48.8 % (45-73); Platelet Count 212 X10*3/uL (160-400); Red Blood Count 4.83 X10*6/uL (4.20-5.50); Red Cell Distribution Width 13.9 % (11.0-16.0)
[2023-04-15 16:45] LABS: Alanine Aminotransferase 18 U/L (0-31); Albumin Level 4.1 g/dL (3.5-5.0); Alkaline Phosphatase 96 U/L (39-117); Anion Gap 12 (12-20); Aspartate Amino Transferase 26 U/L (5-31); Blood Urea Nitrogen 16 mg/dL (9-16); Calcium 9.4 mg/dL (8.4-10.2); Carbon Dioxide 30 mmol/L (22-29); Chloride 101 mmol/L (96-108); Cholesterol 167 mg/dL (<200); Estimated Glomerular Filt Rate > 60; Glucose Fasting 110 mg/dL (60-99); HDL Cholesterol 67 mg/dL (>40); LDL Cholesterol Calculated 74 mg/dL (<100); Potassium 3.5 mmol/L (3.3-5.1); Sodium 139 mmol/L (135-145); Triglycerides 132 mg/dL (<150)
[2023-04-15 17:02] LABS: Thyroid Stimulating Hormone 2.08 uIU/mL (0.32-4.0)
== END 2023-04-15 14:37 | disposition home or self-care (01) ==
LOC: HO.HMGCLDS 14:36
PROVIDERS: PCP Internal Medicine; Visit Provider Internal Medicine
DX: E78.5 Hyperlipidemia, unspecified (principal); E03.9 Hypothyroidism, unspecified; D64.9 Anemia, unspecified; N28.9 Disorder of kidney and ureter, unspecified
CPT/HCPCS: 36415; 80053; 80061; 84443; 85025

== ENCOUNTER 2023-06-20 14:21 | Outpatient (AMB) | payer MEDICARE, SELFPAY ==
--- NOTE | 2023-06-20 14:22 | MHC.PC.OV ---
Vital Signs 06/20/23 14:24 Height 5 ft 2 in Weight 153 lb 3.54 oz BMI 28.0 BP 130/82 Blood Pressure Location Lt brachial Position Sitting Pulse 81 Pulse Source Pulse Oximeter Pulse Oximetry (%) 96 Oxygen Delivery Method Room Air Intake Visit Reasons: [facility] 06/14/23-Right Total Knee Re. Intake Note: Patient is here to follow-up after a visit the emergency department at [facility] on 06/14/23 right total knee replacement Allergies ampicillin Allergy (Unknown, Verified 06/20/23 14:28) Unknown erythromycin base Allergy (Unknown, Verified 06/20/23 14:28) Rash lisinopril Adverse Reaction (Intermediate, Verified 06/20/23 14:28) Cough Medication List - Last Reconciled 06/21/23 by Rex Rodriguez MD albuterol sulfate 90 mcg/actuation 2 puffs inhalation QID PRN apixaban (Eliquis) 5 mg PO BID atorvastatin 40 mg PO DAILY cyclobenzaprine 5 mg PO TID PRN dicyclomine 20 mg PO QID famotidine 20 mg PO BEDTIME hydrochlorothiazide 25 mg PO DAILY 90 days levothyroxine 50 mcg PO DAILY lorazepam 1 mg PO BID PRN metoprolol succinate ER 50 mg PO DAILY pantoprazole 40 mg PO DAILY potassium chloride ER 20 mEq PO DAILY prednisone 20 mg PO DAILY sertraline 50 mg PO DAILY tizanidine 4 mg PO Q8H PRN Fall risk assessment: No Falls in past year Last assessed Fall Risk: 06/20/23 Dental Screening Dental Screen Date: 04/13/23 HPI [facility] 06/14/23-Right Total Knee Re. HPI Details had her right knee arthroplasty; not following through with PT as she should; encouraged to do so [facility] Medical History Obesity Anxiety Shortness of breath HLD (hyperlipidemia) HTN (hypertension) Surgical History Hx of cholecystectomy Hx of hysterectomy Hx of cataract surgery Hx of eye surgery History of foot surgery Hx of thyroidectomy Family History Father No problems noted. Mother No problems noted. Social History Housing: House Alcohol intake: current Patient Tobacco Use Status: Never used Tobacco e-Cigarette/Vaping Use: Never Used Second Hand Smoke Exposure: No service: No Current occupational status: retired Cognitive needs: Yes (cane/walker) Hearing needs: No Vision needs: Yes (reading glasses) Questionnaire Thrive Questionnaire Date Thrive assessed: 04/13/23 AUDIT C Alcohol Use Questionnaire (AUDIT-C) 1. How often do you have a drink containing alcohol?: Never Total Score: 0 Score Reviewed/Action Taken: Yes ERICKA-7 AMB Questionnaire ERICKA-7 Date ERICKA - 7 assessed: 04/13/23 Source: Developed by Drs. Mann Medeiros, Hetal Johnson, Erick Tellez and colleagues, with an educational zulma from [employer]. Review of Systems Const Denies chills, Denies headache(s) and Denies weight loss ENT Denies headache(s) Card Denies chest pain, Denies syncope, Denies irregular heart rhythm and Denies dyspnea Resp Denies chest congestion, Denies cough and Denies dyspnea GI Denies abdominal pain, Denies change in stool character, Denies nausea and Denies vomiting Musc Denies deformity and Denies joint swelling Neuro Denies syncope and Denies headache(s) Physical exam (Primary Care) Vital Signs: Last Vital Signs Pulse 81 06/20/23 14:24 BP 130/82 06/20/23 14:24 Pulse Ox 96 06/20/23 14:24 Oxygen Delivery Method Room Air 06/20/23 14:24 BMI result Body Mass Index 28.0 Tobacco/Smoking Status: Tobacco use Status Tobacco use date assessed 06/20/23 14:30 Patient Tobacco Use Status Never used Tobacco 06/20/23 14:28 e-Cigarette/Vaping Use Never Used 06/20/23 14:28 Thrive Assessment: Date of Thrive Assessment Date Thrive assessed 04/13/23 06/20/23 14:28 Const General: cooperative, comfortable, no acute distress and alert Neck Neck: Yes no lymphadenopathy Thyroid: Thyroid normal Resp Effort & Inspection: normal respiratory effort Auscultation: clear to auscultation bilaterally Percussion: percussion normal Cardio Jugular venous distension: no JVD Palpation: normal PMI Rate: regular rate Rhythm: regular rhythm Heart sounds: S1 normal heart sound present and S2 normal heart sound present GI Inspection: Yes normal to inspection Palpation (GI): No hepatosplenomegaly present Skin General skin exam: no rashes or lesions noted Extrem General: Yes no clubbing, cyanosis or edema Assessment and Plan Assessment & Plan (1) S/P total knee arthroplasty: Code(s): Z96.659 - Presence of unspecified artificial knee joint Plan: f/u with ortho and see PT Coding Level of Care Code Est Pt Level 3 (69539) Diagnoses S/P total knee arthroplasty Z96.659
[2023-06-20 14:24] VITALS: BP 130/82; PULSE 81; O2SAT 96; BMI 28.0
== END 2023-06-20 14:53 | disposition home or self-care (01) ==
PROVIDERS: PCP Internal Medicine; Visit Provider Internal Medicine
DX: Z96.659 Presence of unspecified artificial knee joint (principal)
CPT/HCPCS: 99213

== ENCOUNTER 2023-08-26 13:10 | Outpatient (REF) | payer MEDICARE, SELFPAY ==
[2023-08-26 16:12] LABS: MANUAL DIFF FLAG NO
[2023-08-26 16:16] LABS: Basophils Percent Auto 0.6 % (0-2); Eosinophils Absolute Auto 0.1 X10*3/uL (0.0-0.4); Eosinophils Percent Auto 2.5 % (0-4); Hematocrit 41.3 % (37.0-47.0); Hemoglobin 13.3 g/dl (12.0-16.0); Imm Gran Abs Auto 0.02 X10*3/uL (0.00-0.03); Imm Gran Pct Auto 0.4 % (0.0-0.4); Lymphocytes Absolute Auto 1.4 X10*3/uL (1.2-4.9); Mean Corpuscular HGB Conc 32.2 g/dl (31.0-35.0); Mean Corpuscular Hemoglobin 28.6 pg (27.0-33.0); Mean Corpuscular Volume 88.8 fL (80.0-98.0); Mean Platelet Volume 10.7 fL (9.4-12.3); Monocytes Absolute Auto 0.4 X10*3/uL (0.1-1.2); Monocytes Percent Auto 8.2 % (2-11); Neutrophils Absolute Auto 3.1 x10*3/uL (2.0-8.3); Neutrophils Percent Auto 60.3 % (45-73); Platelet Count 236 X10*3/uL (160-400); Red Blood Count 4.65 X10*6/uL (4.20-5.50); Red Cell Distribution Width 14.6 % (11.0-16.0); White Blood Count 5.2 X10*3/uL (4.8-10.8)
[2023-08-26 16:38] LABS: Alanine Aminotransferase 16 U/L (0-31); Albumin Level 4.1 g/dL (3.5-5.0); Alkaline Phosphatase 106 U/L (39-117); Anion Gap 13 (12-20); Aspartate Amino Transferase 26 U/L (5-31); Bilirubin Total 0.9 mg/dL (0.0-1.0); Blood Urea Nitrogen 12 mg/dL (9-16); Calcium 9.1 mg/dL (8.4-10.2); Carbon Dioxide 29 mmol/L (22-29); Chloride 102 mmol/L (96-108); Cholesterol 168 mg/dL (<200); Estimated Glomerular Filt Rate > 60; Glucose Fasting 113 mg/dL (60-99); HDL Cholesterol 60 mg/dL (>40); LDL Cholesterol Calculated 82 mg/dL (<100); Sodium 140 mmol/L (135-145); Triglycerides 132 mg/dL (<150)
== END 2023-08-26 13:11 | disposition home or self-care (01) ==
LOC: HO.HMGCLDS 13:10
PROVIDERS: PCP Internal Medicine; Visit Provider Internal Medicine
DX: Z13.0 Encounter for screening for diseases of the blood and blood-forming organs and certain disorders involving the immune mechanism (principal); Z13.220 Encounter for screening for lipoid disorders; Z13.9 Encounter for screening, unspecified
CPT/HCPCS: 36415; 80053; 80061; 85025

== ENCOUNTER 2023-08-29 11:44 | Outpatient (AMB) | payer MEDICARE, SELFPAY ==
[2023-08-29 11:47] VITALS: BP 126/70; PULSE 65; O2SAT 94; BMI 27.8
--- NOTE | 2023-08-29 11:47 | MHC.PC.OV ---
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: Not Required per policy Accompanied by: Self / Same As Patient Allergies ampicillin Allergy (Unknown, Verified 08/29/23 11:47) Unknown erythromycin base Allergy (Unknown, Verified 08/29/23 11:47) Rash lisinopril Adverse Reaction (Intermediate, Verified 08/29/23 11:47) Cough Medication List - Last Reconciled 08/29/23 by Rex Rodriguez MD albuterol sulfate 90 mcg/actuation 2 puffs inhalation QID PRN apixaban (Eliquis) 5 mg PO BID atorvastatin 40 mg PO DAILY cyclobenzaprine 5 mg PO TID PRN dicyclomine 20 mg PO QID famotidine 20 mg PO BEDTIME hydrochlorothiazide 25 mg PO DAILY 90 days levothyroxine 50 mcg PO DAILY lorazepam 1 mg PO BID PRN metoprolol succinate ER 50 mg PO DAILY pantoprazole 40 mg PO DAILY potassium chloride ER 20 mEq PO DAILY prednisone 20 mg PO DAILY sertraline 50 mg PO DAILY tizanidine 4 mg PO Q8H PRN Tobacco use date assessed: 08/29/23 Fall risk assessment: No Falls in past year Last assessed Fall Risk: 08/29/23 Dental Screening Dental Screen Date: 04/13/23 HPI 3M follow up HPI Details HTN on rx; doing well and compliant [facility] Medical History Obesity Anxiety Shortness of breath HLD (hyperlipidemia) HTN (hypertension) Surgical History Hx of cholecystectomy Hx of hysterectomy Hx of cataract surgery Hx of eye surgery History of foot surgery Hx of thyroidectomy Family History Father No problems noted. Mother No problems noted. Social History Housing: House Alcohol intake: current Patient Tobacco Use Status: Never used Tobacco e-Cigarette/Vaping Use: Never Used Second Hand Smoke Exposure: No service: No Current occupational status: retired Cognitive needs: Yes (cane/walker) Hearing needs: No Vision needs: Yes (reading glasses) Questionnaire Thrive Questionnaire Date Thrive assessed: 04/13/23 ERICKA-7 AMB Questionnaire ERICKA-7 Date ERICKA - 7 assessed: 04/13/23 Source: Developed by Drs. Mann Medeiros, Hetla Johnson, Erick Tellez and colleagues, with an educational zulma from [employer]. Review of Systems Const Denies chills, Denies headache(s) and Denies weight loss ENT Denies headache(s) Card Denies chest pain, Denies syncope, Denies irregular heart rhythm and Denies dyspnea Resp Denies chest congestion, Denies cough and Denies dyspnea GI Denies abdominal pain, Denies change in stool character, Denies nausea and Denies vomiting Musc Denies deformity and Denies joint swelling Neuro Denies syncope and Denies headache(s) Physical exam (Primary Care) Vital Signs: Last Vital Signs Pulse 65 08/29/23 11:47 BP 126/70 08/29/23 11:47 Pulse Ox 94 08/29/23 11:47 Oxygen Delivery Method Room Air 08/29/23 11:47 BMI result Body Mass Index 27.8 Tobacco/Smoking Status: Tobacco use Status Tobacco use date assessed 08/29/23 08/29/23 11:53 Patient Tobacco Use Status Never used Tobacco 08/29/23 11:53 e-Cigarette/Vaping Use Never Used 08/29/23 11:53 Thrive Assessment: Date of Thrive Assessment Date Thrive assessed 04/13/23 08/29/23 11:53 Const General: cooperative, comfortable, no acute distress and alert Neck Neck: Yes no lymphadenopathy Thyroid: Thyroid normal Resp Effort & Inspection: normal respiratory effort Auscultation: clear to auscultation bilaterally Percussion: percussion normal Cardio Jugular venous distension: no JVD Palpation: normal PMI Rate: regular rate Rhythm: regular rhythm Heart sounds: S1 normal heart sound present and S2 normal heart sound present GI Inspection: Yes normal to inspection Palpation (GI): No hepatosplenomegaly present Skin General skin exam: no rashes or lesions noted Extrem General: Yes no clubbing, cyanosis or edema Assessment and Plan Assessment & Plan (1) HTN (hypertension): Code(s): I10 - Essential (primary) hypertension Plan: stable; same rx Orders: Orders Comprehensive [place]. Panel Fast Today Z13.9 - Encounter for screening, unspecified Lipid Panel Today Z13.220 - Encounter for screening for lipoid disorders Complete Blood Count Auto Diff Today Z13.0 - Encounter for screening for diseases of the blood and blood-forming organs and certain disorders involving the immune mechanism Thyroid Stimulating Hormone Today Z13.29 - Encounter for screening for other suspected endocrine disorder Medications: Refilled lorazepam 1 mg PO BID PRN 60 tabs 5RF anxiety Coding Level of Care Code Est Pt Level 3 (00619) Diagnoses HTN (hypertension) I10
== END 2023-08-29 12:05 | disposition home or self-care (01) ==
PROVIDERS: PCP Internal Medicine; Visit Provider Internal Medicine
DX: I10 Essential (primary) hypertension (principal)
CPT/HCPCS: 99213

== ENCOUNTER 2023-09-26 14:06 | Outpatient (AMB) | payer MEDICARE, SELFPAY ==
--- NOTE | 2023-09-26 14:44 | A.OFFVIS_ITS ---
Vital Signs 09/26/23 14:45 Height 5 ft 2 in Weight 152 lb 1.903 oz BMI 27.8 BP 120/80 Blood Pressure Location Lt brachial Position Sitting Pulse 92 Intake Visit Reasons: follow-up Intake Note: Follow-up hearts doing ok [place] Guide Required: No Allergies ampicillin Allergy (Unknown, Verified 08/29/23 11:47) Unknown erythromycin base Allergy (Unknown, Verified 08/29/23 11:47) Rash lisinopril Adverse Reaction (Intermediate, Verified 08/29/23 11:47) Cough Medication List - Last Reconciled 09/26/23 by Philip Tillman MD albuterol sulfate 90 mcg/actuation 2 puffs inhalation QID PRN apixaban (Eliquis) 5 mg PO BID atorvastatin 40 mg PO DAILY cyclobenzaprine 5 mg PO TID PRN famotidine 20 mg PO BEDTIME hydrochlorothiazide 25 mg PO DAILY 90 days levothyroxine 50 mcg PO DAILY lorazepam 1 mg PO BID PRN metoprolol succinate ER 50 mg PO DAILY pantoprazole 40 mg PO DAILY sertraline 50 mg PO DAILY HPI Comments Details: Elyse comes for follow-up. Patient underwent knee replacement surgery in May and still recuperating from it undergoing 3rd physical therapy. She has had 1 episode of palpitation lasting 2 minutes few weeks ago. No other changes. No heart failure symptoms. Denies any chest pain. No light headedness, syncope. No bleeding issues or neurologic events. Complains of swelling in the left lower extremity, expecting to undergo knee replacement PFSH Medical History Obesity Anxiety Shortness of breath HLD (hyperlipidemia) HTN (hypertension) Surgical History Hx of cholecystectomy Hx of hysterectomy Hx of cataract surgery Hx of eye surgery History of foot surgery Hx of thyroidectomy Family History Father No problems noted. Mother No problems noted. Social History Housing: House Alcohol intake: current Patient Tobacco Use Status: Never used Tobacco e-Cigarette/Vaping Use: Never Used Second Hand Smoke Exposure: No service: No Current occupational status: retired Cognitive needs: Yes (cane/walker) Hearing needs: No Vision needs: Yes (reading glasses) Review of Systems Const Denies chills, Denies fatigue, Denies fever(s), Denies frequent falls, Denies weakness, Denies weight gain and Denies weight loss ENT Denies dizziness Card Denies chest pain, Denies leg edema, Denies lightheadedness, Denies palpitations, Denies dyspnea, Denies dyspnea on exertion, Denies orthopnea and Denies other (loss of consciousness) Resp Denies cough, Denies dyspnea and Denies dyspnea on exertion GI Denies hematochezia and Denies change in stool character Musc Denies abnormal gait, Denies muscle weakness, Denies numbness, Denies radiating pain into limb and Denies tingling Neuro Denies abnormal gait, Denies dizziness, Denies frequent falls, Denies numbness, Denies tingling and Denies weakness Endo Denies fatigue and Denies palpitations Physical Exam Vital Signs: Last Vital Signs Pulse 92 09/26/23 14:45 BP 120/80 09/26/23 14:45 BMI result Body Mass Index 27.8 Const General: cooperative, comfortable, no acute distress, alert, awake and well groomed Nutritional Appearance: overweight Orientation/consciousness: patient oriented x3 Limitations: ambulation with cane Neck Neck: Yes trachea midline, Yes supple and Yes no JVD Resp Effort & Inspection: normal respiratory effort Auscultation: clear to auscultation bilaterally Cardio Jugular venous distension: no JVD Palpation: normal PMI Rate: regular rate Rhythm: regular rhythm Heart sounds: S1 normal heart sound present and S2 normal heart sound present GI Auscultation: normal bowel sounds Skin General skin exam: no rashes or lesions noted Neuro General: patient oriented x3 and no focal motor deficits Extrem General: Yes no clubbing, cyanosis or edema Psych Appearance: grossly normal Assessment & Plan Assessment & Plan (1) Paroxysmal A-fib: Code(s): I48.0 - Paroxysmal atrial fibrillation Category: Medical Plan: Highly symptomatic paroxysmal atrial fibrillation with 1 brief episode few weeks ago. No major recurrences otherwise. Clinically doing well on current metoprolol therapy. Continue the same. Importance of stress mitigation strategies were discussed. Avoidance of stimulants was discussed. Will avoid antiarrhythmic drug therapy at this point time. Continue full oral anticoagulation, currently on Eliquis 5 mg b.i.d.. Semi annual renal function test to be pursued. Advised to call me with worsening symptoms. (2) HTN (hypertension): Code(s): I10 - Essential (primary) hypertension Category: Medical Plan: Hypertension which is currently well optimized on current therapy. Continue the same. Importance of good blood pressure control was discussed. Intermittent measurement of blood pressure at home maintain a log was discussed. Continue stress mitigation strategy. Low-salt diet was discussed. Advised to maintain activity level as tolerated. Will follow up in the clinic in 1 year's time, sooner p.r.n.. Thank me to partake in her care Coding Level of Care Code Est Pt Level 4 (24856) Diagnoses Paroxysmal A-fib I48.0 HTN (hypertension) I10
[2023-09-26 14:45] VITALS: BP 120/80; PULSE 92; BMI 27.8
== END 2023-09-26 15:17 | disposition home or self-care (01) ==
LOC: HO.HCS 14:06
PROVIDERS: PCP Internal Medicine; Visit Provider Internal Medicine Cardiovascular Disease
DX: I48.0 Paroxysmal atrial fibrillation (principal); I10 Essential (primary) hypertension
CPT/HCPCS: 99214

== ENCOUNTER → 2023-09-26 14:06 | Outpatient (BNVA) | payer MEDICARE, SELFPAY | PROVIDERS: PCP Internal Medicine; Visit Provider Internal Medicine Cardiovascular Disease | DX: I48.0 Paroxysmal atrial fibrillation (principal); I10 Essential (primary) hypertension | CPT/HCPCS: 99212 ==

== ENCOUNTER 2023-10-17 12:09 | Outpatient (AMB) | payer MEDICARE, SELFPAY ==
--- NOTE | 2023-10-17 13:05 | MHC.OFFWIV ---
Intake Vital Signs 10/17/23 13:06 Height 5 ft 2 in Weight 69.4 kg BMI 28.0 BP 122/76 Blood Pressure Location Lt brachial Position Sitting Pulse 56 Pulse Source Pulse Oximeter Temp 97.6 F Temp Source Temporal Artery Scan Pulse Oximetry (%) 95 Oxygen Delivery Method Room Air Intake Visit Reasons: rash, breasts, arms, and thighs Intake Note: pt c/o rash on breast, arms and thighs. Started Tuesday. Visited friend [place] [facility] and noticed Tuesday morning Patient Tobacco Use Status: Never used Tobacco Allergies ampicillin Allergy (Unknown, Verified 10/17/23 13:05) Unknown erythromycin base Allergy (Unknown, Verified 10/17/23 13:05) Rash lisinopril Adverse Reaction (Intermediate, Verified 10/17/23 13:05) Cough Do you need a note to return to daycare/school/sports/work: No HPI rash, breasts, arms, and thighs HPI Details Patient presents pruritic rash on her bilateral arms 1 area on her leg. She she denies recent travel or staying in hotels. She does note visiting a friend at a [place] [facility] Tuesday and rash appeared the following day. She notes she visibly some ice at the [place] [facility]. She is unsure if her friend that lives at the [place] [facility] has a similar rash. She does have cats at home, she believes they do not have fleas there and/or cats. She does have home health aide that changes her sheets and cleans her house regularly. She also notes she has regular pest control at her house. Other than walking to and from the car is not spent much time outside. [facility] Medical History Obesity Anxiety Shortness of breath HLD (hyperlipidemia) HTN (hypertension) Surgical History Hx of cholecystectomy Hx of hysterectomy Hx of cataract surgery Hx of eye surgery History of foot surgery Hx of thyroidectomy Family History Father No problems noted. Mother No problems noted. Social History Housing: House Alcohol intake: current Patient Tobacco Use Status: Never used Tobacco e-Cigarette/Vaping Use: Never Used Second Hand Smoke Exposure: No service: No Current occupational status: retired Cognitive needs: Yes (cane/walker) Hearing needs: No Vision needs: Yes (reading glasses) Review of Systems Const Reports as per HPI and Reports no additional complaints Eyes Reports no additional complaints Musc Reports no additional complaints and Reports as per HPI Skin/Breast Denies lesions Physical Exam Vital Signs: Last Vital Signs Temp 97.6 F 10/17/23 13:06 Pulse 56 10/17/23 13:06 BP 122/76 10/17/23 13:06 Pulse Ox 95 10/17/23 13:06 Oxygen Delivery Method Room Air 10/17/23 13:06 BMI result Body Mass Index 28.0 Const General: cooperative, comfortable and no acute distress Orientation/consciousness: patient oriented x3 Resp Effort & Inspection: normal respiratory effort Auscultation: clear to auscultation bilaterally Cardio Rate: regular rate Rhythm: regular rhythm Heart sounds: S1 normal heart sound present and S2 normal heart sound present Skin Rashes: rashes noted (5-10 read 1 cm papular rash consistent with insect bites scattered) Bilateral inner arms , Posterior right upper thigh other (Same as above) Neuro General: patient oriented x3 Assessment & Plan Assessment & Plan (1) Insect bites: Code(s): W57.XXXA - Bitten or stung by nonvenomous insect and other nonvenomous arthropods, initial encounter Qualifiers: Encounter type: initial encounter Site of insect bite: forearm Laterality: unspecified laterality Qualified Code(s): S50.869A - Insect bite (nonvenomous) of unspecified forearm, initial encounter; W57.XXXA - Bitten or stung by nonvenomous insect and other nonvenomous arthropods, initial encounter Plan: Rash is consistent with multiple insect bites appears to be mosquito type bite possible spider. Advised patient to try not to scratch due to risk of infection. None appear infected at this time. I will have her use antihistamine as well as topical cortisone try to reduce itching redness. Advise her to ask her friend if she has a similar rash in possible bed bug bites could be considered also check her cats and her own bed for fleas although given the limited number appear less likely to be flea bites. Return to clinic if rash worsens or does not improve. Medications: New cetirizine (Zyrtec) 10 mg PO DAILY PRN 20 tabs 0RF allergy symptoms hydrocortisone 1% (Cortisone (hydrocortisone)) 1 appl topical BID PRN 28.35 grams 0RF allergic reaction Coding Level of Care Code Est Pt Level 3 (24201) Diagnoses Insect bite of forearm, unspecified laterality, initial encounter S50.869A; W57.XXXA Encounter type: initial encounter Site of insect bite: forearm Laterality: unspecified laterality
[2023-10-17 13:06] VITALS: BP 122/76; PULSE 56; TEMP 36.4; O2SAT 95; BMI 28.0
== END 2023-10-17 14:35 | disposition home or self-care (01) ==
PROVIDERS: PCP Internal Medicine; Visit Provider Physician Assistant
DX: S50.869A Insect bite (nonvenomous) of unspecified forearm, initial encounter (principal); W57.XXXA Bitten or stung by nonvenomous insect and other nonvenomous arthropods, initial encounter
CPT/HCPCS: 99213

== ENCOUNTER 2023-12-05 13:16 | Outpatient (REF) | payer MEDICARE, SELFPAY ==
[2023-12-05 16:57] LABS: MANUAL DIFF FLAG NO
[2023-12-05 17:10] LABS: Basophils Absolute Auto 0.1 X10*3/uL (0.0-0.2); Basophils Percent Auto 0.8 % (0-2); Eosinophils Absolute Auto 0.1 X10*3/uL (0.0-0.4); Eosinophils Percent Auto 1.6 % (0-4); Hematocrit 41.3 % (37.0-47.0); Hemoglobin 13.6 g/dl (12.0-16.0); Imm Gran Abs Auto 0.01 X10*3/uL (0.00-0.03); Imm Gran Pct Auto 0.2 % (0.0-0.4); Lymphocytes Percent Auto 31.6 % (20-40); Mean Corpuscular HGB Conc 32.9 g/dl (31.0-35.0); Mean Corpuscular Hemoglobin 29.1 pg (27.0-33.0); Mean Corpuscular Volume 88.2 fL (80.0-98.0); Mean Platelet Volume 11.1 fL (9.4-12.3); Monocytes Absolute Auto 0.5 X10*3/uL (0.1-1.2); Monocytes Percent Auto 8.4 % (2-11); Neutrophils Absolute Auto 3.6 x10*3/uL (2.0-8.3); Neutrophils Percent Auto 57.4 % (45-73); Platelet Count 222 X10*3/uL (160-400); Red Blood Count 4.68 X10*6/uL (4.20-5.50); Red Cell Distribution Width 14.7 % (11.0-16.0); White Blood Count 6.3 X10*3/uL (4.8-10.8)
[2023-12-05 17:37] LABS: Alanine Aminotransferase 15 U/L (0-31); Albumin Level 4.2 g/dL (3.5-5.0); Alkaline Phosphatase 111 U/L (39-117); Anion Gap 13 (12-20); Aspartate Amino Transferase 22 U/L (5-31); Blood Urea Nitrogen 19 mg/dL (9-16); Calcium 9.4 mg/dL (8.4-10.2); Carbon Dioxide 30 mmol/L (22-29); Chloride 103 mmol/L (96-108); Cholesterol 168 mg/dL (<200); Estimated Glomerular Filt Rate > 60; Glucose Fasting 101 mg/dL (60-99); HDL Cholesterol 66 mg/dL (>40); LDL Cholesterol Calculated 76 mg/dL (<100); Potassium 4.4 mmol/L (3.3-5.1); Sodium 142 mmol/L (135-145); Triglycerides 134 mg/dL (<150)
[2023-12-05 17:45] LABS: Thyroid Stimulating Hormone 2.62 uIU/mL (0.32-4.0)
== END 2023-12-05 13:17 | disposition home or self-care (01) ==
LOC: HO.HMGCLDS 13:16
PROVIDERS: PCP Internal Medicine; Visit Provider Internal Medicine
DX: Z13.0 Encounter for screening for diseases of the blood and blood-forming organs and certain disorders involving the immune mechanism (principal); Z13.220 Encounter for screening for lipoid disorders; Z13.29 Encounter for screening for other suspected endocrine disorder; Z13.9 Encounter for screening, unspecified
CPT/HCPCS: 36415; 80053; 80061; 84443; 85025

== ENCOUNTER 2023-12-06 11:10 | Outpatient (AMB) | payer MEDICARE, SELFPAY ==
[2023-12-06 11:28] VITALS: BP 124/70; PULSE 53; O2SAT 98; BMI 28.2
--- NOTE | 2023-12-06 11:28 | MHC.PC.OV ---
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 Accompanied by: Self / Same As Patient Allergies ampicillin Allergy (Unknown, Verified 12/06/23 11:30) Unknown erythromycin base Allergy (Unknown, Verified 12/06/23 11:30) Rash lisinopril Adverse Reaction (Intermediate, Verified 12/06/23 11:30) Cough Medication List - Last Reconciled 12/06/23 by Rex Rodriguez MD albuterol sulfate 90 mcg/actuation 2 puffs inhalation QID PRN apixaban (Eliquis) 5 mg PO BID atorvastatin 40 mg PO DAILY cetirizine (Zyrtec) 10 mg PO DAILY PRN [compression stockings As directed] cyclobenzaprine 5 mg PO TID PRN famotidine 20 mg PO BEDTIME hydrochlorothiazide 25 mg PO DAILY 90 days hydrocortisone 1% (Cortisone (hydrocortisone)) 1 appl topical BID PRN levothyroxine 50 mcg PO DAILY lorazepam 1 mg PO BID PRN metoprolol succinate ER 50 mg PO DAILY pantoprazole 40 mg PO DAILY sertraline 50 mg PO DAILY Tobacco use date assessed: 08/29/23 Fall risk assessment: No Falls in past year Last assessed Fall Risk: 12/06/23 Dental Screening Dental Screen Date: 04/13/23 HPI 3mo f\u HPI Details hyperlipidemia on rx; doing well nd compliant [facility] Medical History Obesity Anxiety Shortness of breath HLD (hyperlipidemia) HTN (hypertension) Surgical History Hx of cholecystectomy Hx of hysterectomy Hx of cataract surgery Hx of eye surgery History of foot surgery Hx of thyroidectomy Family History Father No problems noted. Mother No problems noted. Social History Housing: House Alcohol intake: current Patient Tobacco Use Status: Never used Tobacco e-Cigarette/Vaping Use: Never Used Second Hand Smoke Exposure: No service: No Current occupational status: retired Cognitive needs: Yes (cane/walker) Hearing needs: No Vision needs: Yes (reading glasses) Questionnaire PHQ-9 Over the last 2 weeks, how often have you been bothered by any of the following problems? 1. Little interest or pleasure in doing things: several days 2. Feeling down, depressed, or hopeless: more than half the days 3. Trouble falling or staying asleep, or sleeping too much: more than half the days 4. Feeling tired or having little energy: nearly every day 5. Poor appetite or overeating: more than half the days 6. Feeling bad about yourself - or that you are a failure or have let yourself or your family down: nearly every day 7. Trouble concentrating on things, such as reading the newspaper or watching television: not at all 8. Moving or speaking so slowly that other people could have noticed. Or the opposite - being so fidgety or restless that you have been moving around a lot more than usual: not at all 9. Thoughts that you would be better off or of hurting yourself in some way: several days Total score: 14 Depression Screening Interpretation: Positive Depression Screening Done: Yes Source: Developed by Drs. Mann Medeiros, Erick Gusman and colleagues, with an educational zulma from [employer]. Thrive Questionnaire Date Thrive assessed: 04/13/23 Are you currently unemployed and looking for a job?: Yes AUDIT C Alcohol Use Questionnaire (AUDIT-C) 1. How often do you have a drink containing alcohol?: Never Total Score: 0 Score Reviewed/Action Taken: Yes ERICKA-7 AMB Questionnaire ERICKA-7 Date ERICKA - 7 assessed: 04/13/23 Source: Developed by Hetal Roy Kurt Kroenke and colleagues, with an educational zulma from [employer]. Review of Systems Const Denies chills, Denies headache(s) and Denies weight loss ENT Denies headache(s) Card Denies chest pain, Denies syncope, Denies irregular heart rhythm and Denies dyspnea Resp Denies chest congestion, Denies cough and Denies dyspnea GI Denies abdominal pain, Denies change in stool character, Denies nausea and Denies vomiting Musc Denies deformity and Denies joint swelling Neuro Denies syncope and Denies headache(s) Physical exam (Primary Care) Vital Signs: Last Vital Signs Pulse 53 12/06/23 11:28 BP 124/70 12/06/23 11:28 Pulse Ox 98 12/06/23 11:28 Oxygen Delivery Method Room Air 12/06/23 11:28 BMI result Body Mass Index 28.2 Tobacco/Smoking Status: Tobacco use Status Tobacco use date assessed 08/29/23 12/06/23 11:33 Patient Tobacco Use Status Never used Tobacco 12/06/23 11:33 e-Cigarette/Vaping Use Never Used 12/06/23 11:33 PHQ-9: PHQ-9 Score PHQ-9: Total score 14 12/06/23 11:41 Depression Screening Interpretation: Positive Thrive Assessment: Date of Thrive Assessment Date Thrive assessed 04/13/23 12/06/23 11:33 Const General: cooperative, comfortable, no acute distress and alert Neck Neck: Yes no lymphadenopathy Thyroid: Thyroid normal Resp Effort & Inspection: normal respiratory effort Auscultation: clear to auscultation bilaterally Percussion: percussion normal Cardio Jugular venous distension: no JVD Palpation: normal PMI Rate: regular rate Rhythm: regular rhythm Heart sounds: S1 normal heart sound present and S2 normal heart sound present GI Inspection: Yes normal to inspection Palpation (GI): No hepatosplenomegaly present Skin General skin exam: no rashes or lesions noted Extrem General: Yes no clubbing, cyanosis or edema Assessment and Plan Assessment & Plan (1) HLD (hyperlipidemia): Code(s): E78.5 - Hyperlipidemia, unspecified Plan: stable; same rx Orders: Orders Lipid Panel Today Z13.220 - Encounter for screening for lipoid disorders Medications: Refilled cetirizine (Zyrtec) 10 mg PO DAILY PRN 20 tabs 3RF allergy symptoms Coding Level of Care Code Est Pt Level 3 (84802) Diagnoses HLD (hyperlipidemia) E78.5
== END 2023-12-06 11:55 | disposition home or self-care (01) ==
PROVIDERS: PCP Internal Medicine; Visit Provider Internal Medicine
DX: E78.5 Hyperlipidemia, unspecified (principal)

== ENCOUNTER → 2023-12-06 11:10 | Outpatient (BNVA) | payer MEDICARE, SELFPAY | PROVIDERS: PCP Internal Medicine; Visit Provider Internal Medicine | DX: E78.5 Hyperlipidemia, unspecified (principal) | CPT/HCPCS: 99212 ==

== ENCOUNTER 2024-02-03 13:44 | Outpatient (AMB) | payer MEDICARE, SELFPAY ==
--- NOTE | 2024-02-03 13:45 | MHC.PC.OV ---
Vital Signs 02/03/24 13:47 Height 5 ft 2 in Weight 150 lb 9.211 oz BMI 27.5 BP 130/68 Blood Pressure Location Lt brachial Position Sitting Pulse 75 Pulse Source Pulse Oximeter Pulse Oximetry (%) 98 Oxygen Delivery Method Room Air Intake Visit Reasons: [facility] left knee replacement Intake Note: Patient is here for hospital discharge follow up. Patient was discharged from [facility] on 01/03/24. Pipe Puller Required: No Career Development Coordinator: Present Accompanied by: Nephew or Niece Allergies ampicillin Allergy (Unknown, Verified 02/03/24 13:46) Unknown erythromycin base Allergy (Unknown, Verified 02/03/24 13:46) Rash lisinopril Adverse Reaction (Intermediate, Verified 02/03/24 13:46) Cough Medication List - Last Reconciled 02/03/24 by Rex Rodriguez MD acetaminophen ER 650 mg PO Q8H albuterol sulfate 90 mcg/actuation 2 puffs inhalation QID PRN apixaban (Eliquis) 5 mg PO BID atorvastatin 40 mg PO DAILY cetirizine (Zyrtec) 10 mg PO DAILY PRN [compression stockings As directed] cyclobenzaprine 5 mg PO TID PRN famotidine 20 mg PO BEDTIME hydrochlorothiazide 25 mg PO DAILY 90 days hydrocortisone 1% (Cortisone (hydrocortisone)) 1 appl topical BID PRN levothyroxine 50 mcg PO DAILY lorazepam 1 mg PO BID PRN metoprolol succinate ER 50 mg PO DAILY oxycodone 5 mg PO QID PRN pantoprazole 40 mg PO DAILY sertraline 50 mg PO DAILY Tobacco use date assessed: 02/03/24 Fall risk assessment: No Falls in past year Last assessed Fall Risk: 02/03/24 Dental Screening Dental Screen Date: 04/13/23 HPI [facility] left knee replacement HPI Details had a left knee arthroplasty which went well; no change in meds; going to [facility] Medical History (Updated 03/11/23 @ 00:01 by Katiana Ryan) Obesity Anxiety Shortness of breath HLD (hyperlipidemia) HTN (hypertension) Surgical History (Updated 02/03/24 @ 13:54 by VINNY Skinner) History of left knee surgery Hx of cholecystectomy Hx of hysterectomy Hx of cataract surgery Hx of eye surgery History of foot surgery Hx of thyroidectomy Family History Father No problems noted. Mother No problems noted. Social History Housing: House Alcohol intake: current Patient Tobacco Use Status: Never used Tobacco e-Cigarette/Vaping Use: Never Used Second Hand Smoke Exposure: No service: No Current occupational status: retired Cognitive needs: Yes (cane/walker) Hearing needs: No Vision needs: Yes (reading glasses) Questionnaire Thrive Questionnaire Date Thrive assessed: 04/13/23 Are you currently unemployed and looking for a job?: Yes ERICKA-7 AMB Questionnaire ERICKA-7 Date ERICKA - 7 assessed: 04/13/23 Source: Developed by Drs. Mann Medeiros, Hetal Johnson, Erick Tellez and colleagues, with an educational zulma from [employer]. Review of Systems Const Denies chills, Denies headache(s) and Denies weight loss ENT Denies headache(s) Card Denies chest pain, Denies syncope, Denies irregular heart rhythm and Denies dyspnea Resp Denies chest congestion, Denies cough and Denies dyspnea GI Denies abdominal pain, Denies change in stool character, Denies nausea and Denies vomiting Musc Denies deformity and Denies joint swelling Neuro Denies syncope and Denies headache(s) Physical exam (Primary Care) Vital Signs: Last Vital Signs Pulse 75 02/03/24 13:47 BP 130/68 02/03/24 13:47 Pulse Ox 98 02/03/24 13:47 Oxygen Delivery Method Room Air 02/03/24 13:47 BMI result Body Mass Index 27.5 Tobacco/Smoking Status: Tobacco use Status Tobacco use date assessed 02/03/24 02/03/24 13:50 Patient Tobacco Use Status Never used Tobacco 02/03/24 13:50 e-Cigarette/Vaping Use Never Used 02/03/24 13:50 Thrive Assessment: Date of Thrive Assessment Date Thrive assessed 04/13/23 02/03/24 13:50 Const General: cooperative, comfortable, no acute distress and alert Neck Neck: Yes no lymphadenopathy Thyroid: Thyroid normal Resp Effort & Inspection: normal respiratory effort Auscultation: clear to auscultation bilaterally Percussion: percussion normal Cardio Jugular venous distension: no JVD Palpation: normal PMI Rate: regular rate Rhythm: regular rhythm Heart sounds: S1 normal heart sound present and S2 normal heart sound present GI Inspection: Yes normal to inspection Palpation (GI): No hepatosplenomegaly present Skin General skin exam: no rashes or lesions noted Extrem General: Yes no clubbing, cyanosis or edema Coding Level of Care Code Est Pt Level 3 (34878) Diagnoses S/P total knee arthroplasty Z96.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
[2024-02-03 13:47] VITALS: BP 130/68; PULSE 75; O2SAT 98; BMI 27.5
== END 2024-02-03 14:13 | disposition home or self-care (01) ==
PROVIDERS: PCP Internal Medicine; Visit Provider Internal Medicine
DX: Z96.659 Presence of unspecified artificial knee joint (principal)

== ENCOUNTER → 2024-02-03 13:44 | Outpatient (BNVA) | payer MEDICARE, SELFPAY | PROVIDERS: PCP Internal Medicine; Visit Provider Internal Medicine | DX: Z96.652 Presence of left artificial knee joint (principal) | CPT/HCPCS: 99212 ==

== ENCOUNTER 2024-05-10 12:44 | Outpatient (REF) | payer MEDICARE, SELFPAY ==
[2024-05-10 16:31] LABS: Cholesterol 154 mg/dL (<200); HDL Cholesterol 66 mg/dL (>40); LDL Cholesterol Calculated 66 mg/dL (<100); Triglycerides 110 mg/dL (<150)
== END 2024-05-10 12:45 | disposition home or self-care (01) ==
LOC: HO.HMGCLDS 12:44
PROVIDERS: PCP Internal Medicine; Visit Provider Internal Medicine
DX: Z13.220 Encounter for screening for lipoid disorders (principal)
CPT/HCPCS: 36415; 80061

== ENCOUNTER 2024-05-11 13:28 | Outpatient (AMB) | payer MEDICARE, SELFPAY ==
--- NOTE | 2024-05-11 13:41 | MHC.PC.OV ---
Vital Signs 05/11/24 13:43 Height 5 ft 2 in Weight 152 lb 8 oz BMI 27.9 BP 130/66 Blood Pressure Location Lt brachial Position Sitting Temp 96.9 F Temp Source Temporal Artery Scan Intake Visit Reasons: 3mth f/u Intake Note: Patient is here to follow up on Hypothyriodism, HTN, HLD. Dye Expert Required: No Wallpaper Installer: Not Required per policy Accompanied by: Self / Same As Patient Allergies ampicillin Allergy (Unknown, Verified 05/11/24 13:43) Unknown erythromycin base Allergy (Unknown, Verified 05/11/24 13:43) Rash lisinopril Adverse Reaction (Intermediate, Verified 05/11/24 13:43) Cough Medication List - Last Reconciled 05/14/24 by Rex Rodriguez MD acetaminophen ER 650 mg PO Q8H albuterol sulfate 90 mcg/actuation 2 puffs inhalation QID PRN apixaban (Eliquis) 5 mg PO BID atorvastatin 40 mg PO DAILY cetirizine (Zyrtec) 10 mg PO DAILY PRN [compression stockings As directed] cyclobenzaprine 5 mg PO TID PRN famotidine 20 mg PO BEDTIME hydrochlorothiazide 25 mg PO DAILY 90 days hydrocortisone 1% (Cortisone (hydrocortisone)) 1 appl topical BID PRN levothyroxine 50 mcg PO DAILY lorazepam 1 mg PO BID PRN metoprolol succinate ER 50 mg PO DAILY oxycodone 5 mg PO QID PRN pantoprazole 40 mg PO DAILY sertraline 50 mg PO DAILY Tobacco use date assessed: 05/11/24 Fall risk assessment: No Falls in past year Last assessed Fall Risk: 05/11/24 Dental Screening Dental Screen Date: 05/11/24 Did you have a dental visit in the last 12 months?: Yes Did you have a dental problem in the last 6 months where you did not have access to dental care?: No Was dental information given to patient?: Patient has dentist HPI 3mth f/u HPI Details hyperlipidemia hypothyroidism and hypertension on rx; doing well and anxious [facility] Medical History (Updated 03/11/23 @ 00:01 by Katiana Ryan) Obesity Anxiety Shortness of breath HLD (hyperlipidemia) HTN (hypertension) Surgical History (Updated 05/11/24 @ 13:49 by VINNY Skinner) History of right knee surgery History of left knee surgery Hx of cholecystectomy Hx of hysterectomy Hx of cataract surgery Hx of eye surgery History of foot surgery Hx of thyroidectomy Family History Father No problems noted. Mother No problems noted. Social History Housing: House Alcohol intake: current Patient Tobacco Use Status: Never used Tobacco e-Cigarette/Vaping Use: Never Used Second Hand Smoke Exposure: No service: No Current occupational status: retired Cognitive needs: Yes (cane/walker) Hearing needs: No Vision needs: Yes (reading glasses) Questionnaire PHQ-9 Over the last 2 weeks, how often have you been bothered by any of the following problems? 1. Little interest or pleasure in doing things: not at all 2. Feeling down, depressed, or hopeless: not at all 3. Trouble falling or staying asleep, or sleeping too much: not at all 4. Feeling tired or having little energy: not at all 5. Poor appetite or overeating: not at all 6. Feeling bad about yourself - or that you are a failure or have let yourself or your family down: not at all 7. Trouble concentrating on things, such as reading the newspaper or watching television: not at all 8. Moving or speaking so slowly that other people could have noticed. Or the opposite - being so fidgety or restless that you have been moving around a lot more than usual: not at all 9. Thoughts that you would be better off or of hurting yourself in some way: not at all Total score: 0 Depression Screening Interpretation: Negative Depression Screening Done: Yes Source: Developed by Drs. Mann Medeiros, Hetal Johnson, Erick Tellez and colleagues, with an educational zulma from [employer]. Thrive Questionnaire Date Thrive assessed: 05/11/24 I am a: Patient What is your living situation today?: I have a steady place to live Within the past 12 months, did the food you bought not last and you didn't have the money to get more?: Never true Within the past 12 months, did you worry whether your food would run out before you got money to buy more?: Never true Do you have trouble paying for medicines?: No Do you have trouble getting transportation to medical appointments?: No Do you have trouble paying your heating and electricity bill?: No Do you have trouble taking care of your child, family member or friend?: No Do you have trouble with day-to-day activities such as bathing, preparing meals, shopping, managing finances, etc.?: No Are you currently unemployed and looking for a job?: No Are you interested in more education?: No Please select the resources that you would like help with: None Currently or been in a relationship where the following occur: No concerns reported THRIVE Score: 0 AUDIT C Alcohol Use Questionnaire (AUDIT-C) 1. How often do you have a drink containing alcohol?: Never Total Score: 0 ERICKA-7 AMB Questionnaire ERICKA-7 Date ERICKA - 7 assessed: 05/11/24 Feeling nervous, anxious, or on edge: 0 = Not at all Not being able to stop or control worryin = Not at all Worrying too much about different things: 0 = Not at all Trouble relaxin = Not at all Being so restless that it is hard to sit still: 0 = Not at all Becoming easily annoyed or irritable: 0 = Not at all Feeling afraid as if something awful might happen: 0 = Not at all Total ERICKA-7 score (0-4 normal; 5-9 mild; 10-14 moderate; 15-21 severe): 0 Source: Developed by Drs. Mann Medeiros, Hetal Johnson, Erick Tellez and colleagues, with an educational zulma from [employer]. Review of Systems Const Denies chills, Denies headache(s) and Denies weight loss ENT Denies headache(s) Card Denies chest pain, Denies syncope, Denies irregular heart rhythm and Denies dyspnea Resp Denies chest congestion, Denies cough and Denies dyspnea GI Denies abdominal pain, Denies change in stool character, Denies nausea and Denies vomiting Musc Denies deformity and Denies joint swelling Neuro Denies syncope and Denies headache(s) Physical exam (Primary Care) Vital Signs: Last Vital Signs Temp 96.9 F 05/11/24 13:43 BP 130/66 05/11/24 13:43 BMI result Body Mass Index 27.9 Tobacco/Smoking Status: Tobacco use Status Tobacco use date assessed 05/11/24 05/11/24 13:50 Patient Tobacco Use Status Never used Tobacco 05/11/24 13:50 e-Cigarette/Vaping Use Never Used 05/11/24 13:50 PHQ-9: PHQ-9 Score PHQ-9: Total score 0 05/11/24 13:50 Depression Screening Interpretation: Negative Thrive Assessment: Date of Thrive Assessment Date Thrive assessed 05/11/24 05/11/24 13:50 Currently or been in a relationship where the following occur: No concerns reported Const General: cooperative, comfortable, no acute distress and alert Neck Neck: Yes no lymphadenopathy Thyroid: Thyroid normal Resp Effort & Inspection: normal respiratory effort Auscultation: clear to auscultation bilaterally Percussion: percussion normal Cardio Jugular venous distension: no JVD Palpation: normal PMI Rate: regular rate Rhythm: regular rhythm Heart sounds: S1 normal heart sound present and S2 normal heart sound present GI Inspection: Yes normal to inspection Palpation (GI): No hepatosplenomegaly present Skin General skin exam: no rashes or lesions noted Extrem General: Yes no clubbing, cyanosis or edema Coding Level of Care Code Est Pt Level 4 (78757) Diagnoses Hypothyroidism E03.9 HLD (hyperlipidemia) E78.5 HTN (hypertension) I10 Assessment & Plan Assessment & Plan (1) Hypothyroidism: Code(s): E03.9 - Hypothyroidism, unspecified Category: Medical Plan: stable; same rx (2) HLD (hyperlipidemia): Code(s): E78.5 - Hyperlipidemia, unspecified Category: Medical Plan: stable; same rx (3) HTN (hypertension): Code(s): I10 - Essential (primary) hypertension Category: Medical Plan: stable; same rx
[2024-05-11 13:43] VITALS: BP 130/66; TEMP 36.1; BMI 27.9
== END 2024-05-11 14:07 | disposition home or self-care (01) ==
PROVIDERS: PCP Internal Medicine; Visit Provider Internal Medicine
DX: E03.9 Hypothyroidism, unspecified (principal); E78.5 Hyperlipidemia, unspecified; I10 Essential (primary) hypertension

== ENCOUNTER → 2024-05-11 13:28 | Outpatient (BNVA) | payer MEDICARE, SELFPAY | PROVIDERS: PCP Internal Medicine; Visit Provider Internal Medicine | DX: E03.9 Hypothyroidism, unspecified (principal); E78.5 Hyperlipidemia, unspecified; I10 Essential (primary) hypertension | CPT/HCPCS: 99212 ==

== ENCOUNTER 2024-07-11 16:27 | Outpatient (AMB) | payer MEDICARE, SELFPAY ==
[2024-07-11 16:31] VITALS: BP 116/68; PULSE 94; RESP 20; TEMP 36.4; O2SAT 97; BMI 28.3
--- NOTE | 2024-07-11 16:31 | A.OFFPC_ITS ---
Vital Signs 07/11/24 16:31 Height 5 ft 2 in Weight 155 lb BMI 28.3 BP 116/68 Blood Pressure Location Lt brachial Position Sitting Respiration 20 Pulse 94 Pulse Source Pulse Oximeter Temp 97.6 F Temp Source Oral Pulse Oximetry (%) 97 Oxygen Delivery Method Room Air Intake Visit Reasons: cough/chest tightness Air Hoist Operator Required: No Accompanied by: Self / Same As Patient Allergies ampicillin Allergy (Unknown, Verified 07/11/24 16:50) Unknown erythromycin base Allergy (Unknown, Verified 07/11/24 16:50) Rash lisinopril Adverse Reaction (Intermediate, Verified 07/11/24 16:50) Cough Medication List - Last Reconciled 07/11/24 by KELSIE Galeano acetaminophen ER 650 mg PO Q8H albuterol sulfate 90 mcg/actuation 2 puffs inhalation QID PRN apixaban (Eliquis) 5 mg PO BID atorvastatin 40 mg PO DAILY cetirizine (Zyrtec) 10 mg PO DAILY PRN [compression stockings As directed] cyclobenzaprine 5 mg PO TID PRN famotidine 20 mg PO BEDTIME hydrochlorothiazide 25 mg PO DAILY 90 days levothyroxine 50 mcg PO DAILY lorazepam 1 mg PO BID PRN metoprolol succinate ER 50 mg PO DAILY oxycodone 5 mg PO QID PRN pantoprazole 40 mg PO DAILY sertraline 50 mg PO DAILY Tobacco use date assessed: 07/11/24 Fall risk assessment: 1 Fall in past year Last assessed Fall Risk: 07/11/24 Dental Screening Dental Screen Date: 07/11/24 Did you have a dental visit in the last 12 months?: Yes Did you have a dental problem in the last 6 months where you did not have access to dental care?: No Was dental information given to patient?: Patient has dentist HPI cough/chest tightness HPI Details The patient is an 89-year-old female presenting with over a week long cough and nasal congestion. She reports the onset of symptoms following a small holiday gathering; the next day she awoke with substantial nasal congestion and began producing dark yellow phlegm. This has progressed, leading to difficulty in breathing. The patient lacks fever, headaches, or a sore throat. Historically, similar respiratory symptoms have escalated to pneumonia, heighte desiree her current anxiety. Additionally, when experiencing bronchitis, her asthma symptoms are aggravated, though she has had stability since a pneumonia vaccination ten years ago. [facility] Medical History Obesity Anxiety Shortness of breath HLD (hyperlipidemia) HTN (hypertension) Surgical History History of right knee surgery History of left knee surgery Hx of cholecystectomy Hx of hysterectomy Hx of cataract surgery Hx of eye surgery History of foot surgery Hx of thyroidectomy Family History Father No problems noted. Mother No problems noted. Social History Housing: House Alcohol intake: current Patient Tobacco Use Status: Never used Tobacco e-Cigarette/Vaping Use: Never Used Second Hand Smoke Exposure: No service: No Current occupational status: retired Cognitive needs: Yes (cane/walker) Hearing needs: No Vision needs: Yes (reading glasses) Questionnaire PHQ-9 Over the last 2 weeks, how often have you been bothered by any of the following problems? 1. Little interest or pleasure in doing things: not at all 2. Feeling down, depressed, or hopeless: nearly every day 3. Trouble falling or staying asleep, or sleeping too much: nearly every day 4. Feeling tired or having little energy: nearly every day 5. Poor appetite or overeating: more than half the days 6. Feeling bad about yourself - or that you are a failure or have let yourself or your family down: nearly every day 7. Trouble concentrating on things, such as reading the newspaper or watching television: nearly every day 8. Moving or speaking so slowly that other people could have noticed. Or the opposite - being so fidgety or restless that you have been moving around a lot more than usual: not at all 9. Thoughts that you would be better off or of hurting yourself in some way: not at all Total score: 17 Depression Screening Interpretation: Positive Depression Screening Done: Yes Source: Developed by Drs. Mann Medeiros, Hetal Johnson, Erick Tellez and colleagues, with an educational zulma from [email or web address]. Thrive Questionnaire Date Thrive assessed: 07/11/24 I am a: Patient What is your living situation today?: I have a steady place to live Within the past 12 months, did the food you bought not last and you didn't have the money to get more?: Never true Within the past 12 months, did you worry whether your food would run out before you got money to buy more?: Never true Do you have trouble paying for medicines?: No Do you have trouble getting transportation to medical appointments?: No Do you have trouble paying your heating and electricity bill?: No Do you have trouble taking care of your child, family member or friend?: No Do you have trouble with day-to-day activities such as bathing, preparing meals, shopping, managing finances, etc.?: Yes Are you currently unemployed and looking for a job?: No Are you interested in more education?: No Please select the resources that you would like help with: None Currently or been in a relationship where the following occur: I choose not to answer THRIVE Score: 0 AUDIT C Alcohol Use Questionnaire (AUDIT-C) 1. How often do you have a drink containing alcohol?: Never Total Score: 0 Score Reviewed/Action Taken: No ERICKA-7 AMB Questionnaire ERICKA-7 Date ERICKA - 7 assessed: 07/11/24 Feeling nervous, anxious, or on edge: 3 = Nearly every day Not being able to stop or control worryin = Nearly every day Worrying too much about different things: 3 = Nearly every day Trouble relaxin = Nearly every day Being so restless that it is hard to sit still: 3 = Nearly every day Becoming easily annoyed or irritable: 0 = Not at all Feeling afraid as if something awful might happen: 1 = Several days Total ERICKA-7 score (0-4 normal; 5-9 mild; 10-14 moderate; 15-21 severe): 16 Source: Developed by Drs. Mann Medeiros, Hetal Johnson, Erick Tellez and colleagues, with an educational zulma from [email or web address]. Review of Systems Const Denies headache(s) Eyes Denies loss of vision ENT Denies vertigo, Denies dizziness, Denies otalgia, Denies headache(s), Reports nasal congestion, Denies sinus pain and Denies sore throat Card Denies chest pain, Denies leg edema, Denies lightheadedness and Reports dyspnea on exertion Resp Reports change in phlegm color (dark brown/yellowish), Reports cough, Denies hemoptysis, Reports dyspnea on exertion and Denies wheezing GI Denies abdominal pain, Denies melena, Denies constipation, Denies diarrhea and Denies vomiting Musc Denies myalgias Neuro Denies Abnormal speech present, Denies vertigo, Denies dizziness, Denies headache(s) and Denies loss of vision Aller/Immun Denies wheezing Physical exam (Primary Care) Vital Signs: Last Vital Signs Temp 97.6 F 07/11/24 16:31 Pulse 94 07/11/24 16:31 Resp 20 07/11/24 16:31 BP 116/68 07/11/24 16:31 Pulse Ox 97 07/11/24 16:31 Oxygen Delivery Method Room Air 07/11/24 16:31 BMI result Body Mass Index 28.3 Tobacco/Smoking Status: Tobacco use Status Tobacco use date assessed 07/11/24 07/11/24 16:43 Patient Tobacco Use Status Never used Tobacco 07/11/24 16:43 e-Cigarette/Vaping Use Never Used 07/11/24 16:43 PHQ-9: PHQ-9 Score PHQ-9: Total score 17 07/11/24 17:01 Depression Screening Interpretation: Positive Thrive Assessment: Date of Thrive Assessment Date Thrive assessed 07/11/24 07/11/24 16:43 Currently or been in a relationship where the following occur: I choose not to answer Const General: healthy appearing, no acute distress, alert and awake Nutritional Appearance: well nourished Orientation/consciousness: oriented to person, oriented to place and oriented to time [facility] Ears: TM's normal bilaterally General nose exam: Abnormal mucous membranes and turbinates present boggy and erythematous and Nasal discharge present purulent on the left Eyes Conjunctivae: conjunctivae normal Sclerae: sclerae normal Pupils: Equal, round and reactive pupils present Neck Neck: Yes no lymphadenopathy and Yes no JVD Thyroid: Thyroid normal Carotids: no bruits Resp Effort & Inspection: normal respiratory effort, Actively coughing and not tachypneic Auscultation: no crackles, no rales, no rhonchi, no wheezes, diminished lung sounds (in the bases ( tight )) and bronchial breath sounds (in upper lobes) Cardio Rate: regular rate Rhythm: regular rhythm Heart sounds: no murmurs and normal S1 and S2 GI Palpation (GI): Soft to palpation, nontender, no hepatomegaly and no splenomegaly Auscultation: normal bowel sounds Neuro General: oriented to person, oriented to place and oriented to time Cranial nerves: Yes Equal, round and reactive pupils present Speech: No Abnormal speech present Gait exam (Neuro): Normal gait present Psych Mental Status: mental status grossly normal Speech and movement: Normal speech and movement present Affect: normal affect Attitude: cooperative Thought process: Normal thought process present Coding Level of Care Code Est Pt Level 3 (40882) Diagnoses Intermittent asthma, unspecified asthma severity, unspecified whether complicated J45.20 Asthma severity: unspecified severity Asthma persistence: intermittent Asthma complication type: unspecified Bronchitis J40 Pneumonia of both lower lobes due to infectious organism J18.9 Pneumonia type: due to unspecified organism Laterality: bilateral Lung location: lower lobe of lung Rhinosinusitis J32.9 Time Spent (min) 37 Assessment & Plan Assessment & Plan (1) Asthma: Code(s): J45.909 - Unspecified asthma, uncomplicated Category: Medical Qualifiers: Asthma severity: unspecified severity Asthma persistence: intermittent Asthma complication type: unspecified Qualified Code(s): J45.20 - Mild intermittent asthma, uncomplicated (2) Bronchitis: Code(s): J40 - Bronchitis, not specified as acute or chronic Category: Medical (3) Pneumonia: Comment: Patient will be given prednisone and doxycycline to be taken as directed. Patient has been educated on the side effects of these medication. She has been educated on signs of worsening symptoms and when to present back to the walk-in clinic or when to present to the emergency room. Patient is agreeable to this plan Code(s): J18.9 - Pneumonia, unspecified organism Category: Medical Qualifiers: Pneumonia type: due to unspecified organism Laterality: bilateral Lung location: lower lobe of lung Qualified Code(s): J18.9 - Pneumonia, unspecified organism (4) Rhinosinusitis: Code(s): J32.9 - Chronic sinusitis, unspecified Category: Medical Plan Prescribed antibiotics doxycycline) for five days and a short course of prednisone to manage bronchitis symptoms and potential pneumonia. The patient's asthma inhaler prescription is renewed for contingency. A nasal spray was recommended to alleviate congestion. The decision considers her medical history and current stressors, including living alone. Follow-up care is crucial to assess symptom resolution. Discussed with patient that if her symptoms are not decreasing/resolving she should go to the ER. Patient was informed and verbally consented to the use of an ambient scribe for clinic note documentation during this visit. Medications: New doxycycline monohydrate 100 mg PO BID 5 days 10 caps 0RF prednisone 20 mg PO DAILY 3 days 3 tabs 0RF fluticasone propionate 50 mcg/actuation administer into each nostril 1 spray intranasal BID 16 grams 0RF Refilled albuterol sulfate 90 mcg/actuation 2 puffs inhalation QID PRN 8.5 grams 0RF shortness of breath or wheezing cetirizine (Zyrtec) 10 mg PO DAILY PRN 20 tabs 3RF allergy symptoms
== END 2024-07-11 17:13 | disposition home or self-care (01) ==
LOC: HO.HMCH 16:28
PROVIDERS: PCP Internal Medicine
DX: J45.20 Mild intermittent asthma, uncomplicated (principal); J40 Bronchitis, not specified as acute or chronic; J18.9 Pneumonia, unspecified organism; J32.9 Chronic sinusitis, unspecified

== ENCOUNTER → 2024-07-11 16:27 | Outpatient (BNVA) | payer MEDICARE, SELFPAY | PROVIDERS: PCP Internal Medicine | DX: J45.20 Mild intermittent asthma, uncomplicated (principal); J40 Bronchitis, not specified as acute or chronic; J18.9 Pneumonia, unspecified organism; J32.9 Chronic sinusitis, unspecified | CPT/HCPCS: 99212 ==

== ENCOUNTER 2024-07-20 12:32 | Outpatient (AMB) | payer MEDICARE, SELFPAY ==
[2024-07-20 12:35] VITALS: BP 118/74; BMI 28.9
--- NOTE | 2024-07-20 12:35 | MHC.PC.OV ---
Vital Signs 07/20/24 12:35 Height 5 ft 2 in Weight 158 lb 1.143 oz BMI 28.9 BP 118/74 Blood Pressure Location Lt brachial Position Sitting Pulse Source Pulse Oximeter Oxygen Delivery Method Room Air Intake Visit Reasons: EDWARD from Dr. Rodriguez Psychiatric Registered Nurse Required: No Accompanied by: Self / Same As Patient Allergies ampicillin Allergy (Unknown, Verified 07/20/24 12:55) Unknown erythromycin base Allergy (Unknown, Verified 07/20/24 12:55) Rash lisinopril Adverse Reaction (Intermediate, Verified 07/20/24 12:55) Cough Medication List - Last Reconciled 07/20/24 by Matthew Hollingsworth MD acetaminophen ER 650 mg PO Q8H albuterol sulfate 90 mcg/actuation 2 puffs inhalation QID PRN apixaban (Eliquis) 5 mg PO BID atorvastatin 40 mg PO DAILY cetirizine (Zyrtec) 10 mg PO DAILY PRN [compression stockings As directed] cyclobenzaprine 5 mg PO TID PRN fluticasone propionate 50 mcg/actuation 1 spray intranasal BID hydrochlorothiazide 25 mg PO DAILY 90 days levothyroxine 50 mcg PO DAILY lorazepam 1 mg PO BID PRN metoprolol succinate ER 50 mg PO DAILY pantoprazole 40 mg PO DAILY sertraline 50 mg PO DAILY Tobacco use date assessed: 07/20/24 Fall risk assessment: No Falls in past year Last assessed Fall Risk: 07/20/24 Dental Screening Dental Screen Date: 07/20/24 Did you have a dental visit in the last 12 months?: Yes Did you have a dental problem in the last 6 months where you did not have access to dental care?: No Was dental information given to patient?: Patient has dentist HPI EDWARD from Dr. Rodriguez HPI Details Patient comes in today for her follow up visit - is transferring over from Dr. Rodriguez, who retired from the practice a couple of months ago States that she is feeling a little better than she did about a week ago but still has recurrent chest congestion and nasal congestion as well as a lingering cough She is presently taking OTC Mucinex with some relief States that the antibiotic prescription and prednisone that she was prescribed last week has helped a lot She denies any fever or sore throat; denies any headaches or dizziness Denies any chest pains, no increased shortness of breath No nausea/vomiting, no abdominal pain No change in bowel habits She has no follow-up labs done recently COUNT INCLUDES [facility] Medical History (Updated 07/22/24 @ 15:10 by Matthew Hollingsworth MD) Overweight (BMI 25.0-29.9) Allergic rhinitis GERD without esophagitis Paroxysmal atrial fibrillation Acquired hypothyroidism Essential hypertension Pure hypercholesterolemia Obesity Anxiety Shortness of breath HLD (hyperlipidemia) HTN (hypertension) Surgical History History of right knee surgery History of left knee surgery Hx of cholecystectomy Hx of hysterectomy Hx of cataract surgery Hx of eye surgery History of foot surgery Hx of thyroidectomy Family History Father No problems noted. Mother No problems noted. Social History Housing: House Alcohol intake: current Patient Tobacco Use Status: Never used Tobacco e-Cigarette/Vaping Use: Never Used Second Hand Smoke Exposure: No service: No Current occupational status: retired Cognitive needs: Yes (cane/walker) Hearing needs: No Vision needs: Yes (reading glasses) Questionnaire PHQ-9 Over the last 2 weeks, how often have you been bothered by any of the following problems? 1. Little interest or pleasure in doing things: not at all 2. Feeling down, depressed, or hopeless: nearly every day 3. Trouble falling or staying asleep, or sleeping too much: nearly every day 4. Feeling tired or having little energy: nearly every day 5. Poor appetite or overeating: more than half the days 6. Feeling bad about yourself - or that you are a failure or have let yourself or your family down: nearly every day 7. Trouble concentrating on things, such as reading the newspaper or watching television: nearly every day 8. Moving or speaking so slowly that other people could have noticed. Or the opposite - being so fidgety or restless that you have been moving around a lot more than usual: not at all 9. Thoughts that you would be better off or of hurting yourself in some way: not at all Total score: 17 Depression Screening Interpretation: Positive Depression Screening Follow-up: Existing condition and In treatment Depression Screening Done: Yes [id number] - PHQ-9 Billing: Yes Source: Developed by Hetal Roy, Erick Tellez and colleagues, with an educational zulma from [employer]. Thrive Questionnaire Date Thrive assessed: 07/20/24 I am a: Patient What is your living situation today?: I have a steady place to live Within the past 12 months, did the food you bought not last and you didn't have the money to get more?: Never true Within the past 12 months, did you worry whether your food would run out before you got money to buy more?: Never true Do you have trouble paying for medicines?: No Do you have trouble getting transportation to medical appointments?: No Do you have trouble paying your heating and electricity bill?: No Do you have trouble taking care of your child, family member or friend?: No Do you have trouble with day-to-day activities such as bathing, preparing meals, shopping, managing finances, etc.?: Yes Are you currently unemployed and looking for a job?: No Are you interested in more education?: No Please select the resources that you would like help with: None Currently or been in a relationship where the following occur: I choose not to answer THRIVE Score: 0 AUDIT C Alcohol Use Questionnaire (AUDIT-C) 1. How often do you have a drink containing alcohol?: Never 3. How often do you have six or more drinks on one occasion?: Never Total Score: 0 Score Reviewed/Action Taken: Yes ERICKA-7 AMB Questionnaire ERICKA-7 Date ERICKA - 7 assessed: 07/20/24 Feeling nervous, anxious, or on edge: 3 = Nearly every day Not being able to stop or control worryin = Nearly every day Worrying too much about different things: 3 = Nearly every day Trouble relaxin = Nearly every day Being so restless that it is hard to sit still: 3 = Nearly every day Becoming easily annoyed or irritable: 0 = Not at all Feeling afraid as if something awful might happen: 1 = Several days Total ERICKA-7 score (0-4 normal; 5-9 mild; 10-14 moderate; 15-21 severe): 16 Source: Developed by Hetal Roy Kurt Kroenke and colleagues, with an educational zulma from [employer]. Review of Systems Const Denies chills, Denies fatigue, Denies fever(s) and Denies headache(s) ENT Denies dysphagia, Denies dizziness, Denies otalgia, Denies headache(s), Reports nasal congestion, Denies neck pain, Denies odynophagia and Denies sore throat Card Denies chest pain, Denies palpitations and Denies dyspnea Resp Reports chest congestion (mild), Reports cough (on and off), Denies dyspnea and Denies wheezing GI Denies abdominal pain, Denies constipation, Denies dysphagia, Denies heartburn, Denies diarrhea, Denies nausea, Denies odynophagia and Denies vomiting Denies difficulty voiding, Denies nocturia, Denies dysuria and Denies urinary urgency Musc Denies back pain and Denies neck pain Skin/Breast Denies rash Neuro Denies dizziness and Denies headache(s) Endo Denies fatigue and Denies palpitations Aller/Immun Denies wheezing Physical exam (Primary Care) Vital Signs: Last Vital Signs BP 118/74 07/20/24 12:35 Oxygen Delivery Method Room Air 07/20/24 12:35 BMI result Body Mass Index 28.9 Tobacco/Smoking Status: Tobacco use Status Tobacco use date assessed 07/20/24 07/20/24 12:45 Patient Tobacco Use Status Never used Tobacco 07/20/24 12:45 e-Cigarette/Vaping Use Never Used 07/20/24 12:45 PHQ-9: PHQ-9 Score PHQ-9: Total score 17 07/20/24 13:05 Depression Screening Interpretation: Positive Depression Screening Follow-up: Existing condition and In treatment Thrive Assessment: Date of Thrive Assessment Date Thrive assessed 07/20/24 07/20/24 12:45 Currently or been in a relationship where the following occur: I choose not to answer Const General: no acute distress and alert HENMT Ears: TM's normal bilaterally and EAC's normal Throat: Yes posterior oropharynx normal and Yes tonsils normal (no TP congestion) Neck Neck: Yes supple and No lymphadenopathy Thyroid: Thyroid normal Resp Auscultation: clear to auscultation bilaterally, no rales, no wheezes and diminished lung sounds (slightly) bilateral Cardio Rate: regular rate Rhythm: regular rhythm Heart sounds: no murmurs GI Palpation (GI): Soft to palpation and nontender Auscultation: normal bowel sounds General: Yes no CVA tenderness Back/Spine/Pelvis Back: no CVA tenderness Thoracic/Lumbar Spine: No lumbar spinal tenderness Skin Rashes: no rashes Extrem General: Yes no clubbing, cyanosis or edema Coding Level of Care Code Est Pt Level 4 (54705) Diagnoses Pure hypercholesterolemia E78.00 Essential hypertension I10 Acquired hypothyroidism E03.9 Intermittent asthma, unspecified asthma severity, unspecified whether complicated J45.20 Asthma complication type: unspecified Asthma persistence: intermittent Asthma severity: unspecified severity Paroxysmal atrial fibrillation I48.0 GERD without esophagitis K21.9 Allergic rhinitis, unspecified seasonality, unspecified trigger J30.9 Allergic rhinitis trigger: unspecified Allergic rhinitis seasonality: unspecified Anxiety F41.9 Overweight (BMI 25.0-29.9) E66.3 Additional Codes PHQ-9 - 31015 - PHQ-9 Billing: Yes ([id number]) Assessment & Plan Assessment & Plan (1) Pure hypercholesterolemia: Code(s): E78.00 - Pure hypercholesterolemia, unspecified Category: Medical Plan: Reinforced low cholesterol diet Continue Atorvastatin 40 mg QD Will have patient recheck her labs and fasting lipids in 3 months for follow up (2) Essential hypertension: Code(s): I10 - Essential (primary) hypertension Category: Medical Plan: Reinforced low sodium diet - goal is systolic BP of at least 130 to 140 mm or less Continue Metoprolol ER 50 mg QD and HCTZ 25 mg QD (3) Acquired hypothyroidism: Code(s): E03.9 - Hypothyroidism, unspecified Category: Medical Plan: Continue Levothyroxine 50 mcg QD Will recheck her TFTs in 3 months for follow up (4) Asthma: Code(s): J45.909 - Unspecified asthma, uncomplicated Category: Medical Qualifiers: Asthma complication type: unspecified Asthma persistence: intermittent Asthma severity: unspecified severity Qualified Code(s): J45.20 - Mild intermittent asthma, uncomplicated Plan: Her recent asthma exacerbation appears to be resolving Continue Albuterol HFA 1 to 2 inhalations QID PRN (5) Paroxysmal atrial fibrillation: Code(s): I48.0 - Paroxysmal atrial fibrillation Category: Social Hx Plan: Patient is currently in sinus rhythm Continue Apixaban 5 mg BID for thromboembolism prophylaxis and Metoprolol ER 50 mg QD Follow up with cardiology as scheduled (6) GERD without esophagitis: Code(s): K21.9 - Gastro-esophageal reflux disease without esophagitis Category: Medical Plan: Continue Pantoprazole 40 mg QD (7) Allergic rhinitis: Code(s): J30.9 - Allergic rhinitis, unspecified Category: Medical Qualifiers: Allergic rhinitis trigger: unspecified Allergic rhinitis seasonality: unspecified Qualified Code(s): J30.9 - Allergic rhinitis, unspecified Plan: Continue Cetirizine 10 mg QD PRN and Fluticasone 50 mcg nasal spray QD PRN (8) Anxiety: Code(s): F41.9 - Anxiety disorder, unspecified Category: Medical Plan: Continue Sertraline 50 mg QD (9) Overweight (BMI 25.0-29.9): Code(s): E66.3 - Overweight Category: Medical Plan: Reinforced diet; exercise and weight loss may not be realistic given patient's advanced age and comorbidities Plan Follow up in 3 months Orders: Orders Comprehensive [place]. Panel Fast 3 Months E78.00 - Pure hypercholesterolemia, unspecified Lipid Panel 3 Months E78.00 - Pure hypercholesterolemia, unspecified UA CC w/rflx Micro + Cult 3 Months R30.0 - Dysuria Free T4 (Free Thyroxine) 3 Months E03.9 - Hypothyroidism, unspecified Thyroid Stimulating Hormone 3 Months E03.9 - Hypothyroidism, unspecified Vitamin D 25-OH Total 3 Months E55.9 - Vitamin D deficiency, unspecified Complete Blood Count Auto Diff 3 Months D64.9 - Anemia, unspecified
== END 2024-07-20 13:16 | disposition home or self-care (01) ==
LOC: HO.HMCH 12:33
PROVIDERS: PCP Internal Medicine; Visit Provider Internal Medicine
DX: E78.00 Pure hypercholesterolemia, unspecified (principal); I48.0 Paroxysmal atrial fibrillation; I10 Essential (primary) hypertension; E03.9 Hypothyroidism, unspecified; J45.20 Mild intermittent asthma, uncomplicated; K21.9 Gastro-esophageal reflux disease without esophagitis; J30.9 Allergic rhinitis, unspecified; F41.9 Anxiety disorder, unspecified; E66.3 Overweight

== ENCOUNTER → 2024-07-20 12:32 | Outpatient (BNVA) | payer MEDICARE, SELFPAY | PROVIDERS: PCP Internal Medicine; Visit Provider Internal Medicine | DX: E78.00 Pure hypercholesterolemia, unspecified (principal); E03.9 Hypothyroidism, unspecified; J45.20 Mild intermittent asthma, uncomplicated; I48.0 Paroxysmal atrial fibrillation; K21.9 Gastro-esophageal reflux disease without esophagitis; J30.9 Allergic rhinitis, unspecified; F41.9 Anxiety disorder, unspecified; E66.3 Overweight; Z68.28 Body mass index [BMI] 28.0-28.9, adult; Z71.3 Dietary counseling and surveillance | CPT/HCPCS: 96127; 99212 ==

== ENCOUNTER 2024-09-25 13:45 | Outpatient (AMB) | payer MEDICARE, SELFPAY ==
--- NOTE | 2024-09-25 13:49 | A.OFFVIS_ITS ---
Vital Signs 09/25/24 13:50 Height 5 ft 2 in Weight 158 lb 11.725 oz BMI 29.0 BP 110/68 Blood Pressure Location Lt brachial Position Sitting Pulse 62 Intake Visit Reasons: 1 yr f/up Intake Note: 1 year follow-up with ekg feeling good Technical Training Specialist Required: No Allergies ampicillin Allergy (Unknown, Verified 07/20/24 12:55) Unknown erythromycin base Allergy (Unknown, Verified 07/20/24 12:55) Rash lisinopril Adverse Reaction (Intermediate, Verified 07/20/24 12:55) Cough Medication List - Last Reconciled 09/25/24 by Philip Tillman MD acetaminophen ER 650 mg PO Q8H albuterol sulfate 90 mcg/actuation 2 puffs inhalation QID PRN apixaban (Eliquis) 5 mg PO BID atorvastatin 40 mg PO DAILY cetirizine (Zyrtec) 10 mg PO DAILY PRN [compression stockings As directed] cyclobenzaprine 5 mg PO TID PRN fluticasone propionate 50 mcg/actuation 1 spray intranasal BID hydrochlorothiazide 25 mg PO DAILY 90 days levothyroxine 50 mcg PO DAILY lorazepam 1 mg PO BID PRN metoprolol succinate ER 50 mg PO DAILY pantoprazole 40 mg PO DAILY sertraline 50 mg PO DAILY HPI Comments Details: Elyse comes for follow-up. She has not had any episodes of atrial fibrillation. She intermittently at rest gets chest pressure in the precordial area. No exertional symptoms. She underwent knee replacement without any issues. Denies any orthopnea, PND, leg edema. No exertional chest pain. No lightheadedness, syncope. No bleeding issues or neurologic events. [facility] Medical History (Updated 09/25/24 @ 14:12 by Philip Tillman MD) Overweight (BMI 25.0-29.9) Allergic rhinitis GERD without esophagitis Paroxysmal atrial fibrillation Acquired hypothyroidism Essential hypertension Pure hypercholesterolemia Obesity Anxiety Shortness of breath Surgical History History of right knee surgery History of left knee surgery Hx of cholecystectomy Hx of hysterectomy Hx of cataract surgery Hx of eye surgery History of foot surgery Hx of thyroidectomy Family History Father No problems noted. Mother No problems noted. Social History Housing: House Alcohol intake: current Patient Tobacco Use Status: Never used Tobacco e-Cigarette/Vaping Use: Never Used Second Hand Smoke Exposure: No service: No Current occupational status: retired Cognitive needs: Yes (cane/walker) Hearing needs: No Vision needs: Yes (reading glasses) Review of Systems Const Denies chills, Denies fatigue, Denies fever(s), Denies frequent falls, Denies weakness, Denies weight gain and Denies weight loss ENT Denies dizziness Card Denies chest pain, Denies leg edema, Denies lightheadedness, Denies palpitations, Denies dyspnea, Denies dyspnea on exertion, Denies orthopnea and Denies other (loss of consciousness) Resp Denies cough, Denies dyspnea and Denies dyspnea on exertion GI Denies hematochezia and Denies change in stool character Musc Denies abnormal gait, Denies muscle weakness, Denies numbness, Denies radiating pain into limb and Denies tingling Neuro Denies abnormal gait, Denies dizziness, Denies frequent falls, Denies numbness, Denies tingling and Denies weakness Endo Denies fatigue and Denies palpitations Physical Exam Vital Signs: Last Vital Signs Pulse 62 09/25/24 13:50 BP 110/68 09/25/24 13:50 BMI result Body Mass Index 29.0 Const General: cooperative, comfortable, no acute distress, alert, awake and well groomed Nutritional Appearance: overweight Orientation/consciousness: patient oriented x3 Limitations: ambulation with cane Neck Neck: Yes trachea midline, Yes supple and Yes no JVD Resp Effort & Inspection: normal respiratory effort Auscultation: clear to auscultation bilaterally Cardio Jugular venous distension: no JVD Palpation: normal PMI Rate: regular rate Rhythm: regular rhythm Heart sounds: S1 normal heart sound present and S2 normal heart sound present GI Auscultation: normal bowel sounds Skin General skin exam: no rashes or lesions noted Neuro General: patient oriented x3 and no focal motor deficits Extrem General: Yes no clubbing, cyanosis or edema Psych Appearance: grossly normal Office Procedures EKG Details: EKG shows normal sinus rhythm with poor R-wave progression with low-voltage QRS, poor R-wave progression most likely lead placement [id number], Complete Assessment & Plan Assessment & Plan (1) Paroxysmal atrial fibrillation: Code(s): I48.0 - Paroxysmal atrial fibrillation Category: Social Hx Plan: Paroxysmal atrial fibrillation which has remained suppressed without any obvious clear recurrence at this point time. Continue metoprolol therapy. Avoidance of stimulants was discussed. Advised to call me with any new symptoms. Stress mitigation strategies were discussed. Continue full oral anticoagulation, currently on Eliquis 5 mg b.i.d.. Semi annual renal function test and annual CBC should be pursued. (2) Essential hypertension: Code(s): I10 - Essential (primary) hypertension Category: Medical Plan: Hypertension which is currently well optimized advised to monitor blood pressure at home maintain a log. Continue current therapy. Importance of good blood pressure control was discussed. Target goal blood pressure less than 130/84. Low-salt diet was discussed. Stress mitigation strategies was discussed. Follow up in the clinic in 1 year's time, sooner p.r.n.. Thank you for allowing me to partake in her care Coding Level of Care Code Est Pt Level 4 (43316) Complex EM visit Add On G2211 Diagnoses Paroxysmal atrial fibrillation I48.0 Essential hypertension I10 CPT Codes EKG - CPT: 23389-[id number], Complete ([id number])
[2024-09-25 13:50] VITALS: BP 110/68; PULSE 62; BMI 29.0
--- OUTSIDE RECORDS SUMMARY | 2024-09-25 15:07 | XMS_ITS | Patient Health Record ---
Author Organization [facility] Address [address] [place] [address] Care Team Providers Care Tire Fabric Impregnating Range Tender Name Role Phone Rex Rodriguez MD Primary Care Provider Mann Thomas Unavailable [phone] Allergies Allergen (clinical drug ingredient) Drug/Non Drug Allergy documented on EMR Reaction Allergy Type Onset Date Status erythromycin Erythromycin Unknown Drug Allergy A ctive Reason For Referral No Information Medications Medication SIG (Take, Route, Frequency, Duration) Notes Start Date End Date Status Pantoprazole Sodium 40mg Active Dicyclomine HCl 20 MG 1 tablet Orally QI D prn Not-Taking Levothyroxine Sodium 50mcg Active Sertraline HCl 50mg Active Ventolin HFA 90mcg A ctive hydroCHLOROthiazide 25mg Active LORazepam 1mg Active Atorvastatin Calcium 40 MG 1 tablet Oral ly Once a day Active Multivitamin Adult - Orally Active Vitamin E 1000 UNIT 1 capsule Orally Onc e a day Active Problems Problem Type SNOMED Code ICD Code Onset Dates Problem Status W/U Status Risk Notes Problem [id number] Irritable bowel syndrome with diarrhea (K58.0) Active confirmed Problem [id number] Gastroesophageal reflux disease, esophagitis presence not specified (K21.9) Active confirmed Plan Of Treatment Future Test Test Name Order Date COLONOSCOPY 09/07/2012 Insurance Providers Payer Name Payer Address Payer Phone Subscriber Number Group Number Insured Name Patient Relationship to Insured Coverage Start Date Coverage End Date [facility] [address] [place] [address] [phone] [id number] JOSH DIXON Self - patient is the insured Medical (General) History Medical History History ICD Code colonoscopy on 11-25-2009-thi s revealed only moderate sigmoid diverticulosis and internal hemorrhoids EGD and colonoscopy in 5-the upper endoscopy revealed a moderate sized hiatal hernia and reflux esophagitis, with biopsies negative for De La Cruz's esophagus-she was started on pantoprazole at that time; colonoscopy revealed a small tubular adenoma-there was no evidence of any inflammatory bowel disease and biopsies were negative for microscopic colitis GERD she had a negative colonoscopy in 1995 w berenice Nelson benign breast disease hypertension Denies [place],DM,CVA,renal disease chronic bronchitis/asthma depression/anxiety hypothyroidism Colonoscopy in 08/2012--[place] except for diverticulosis-1 small tubular adenoma IBS Surgical History Surgery Date(Month/Year) partial thyroidectomy for benign tumor-Claribel Rehman hysterectomy and removal of one ovary broken leg surgery appendectomy cholecystectomy lumpectomy, left breast-benign Eyelid surgery
== END 2024-09-25 14:13 | disposition home or self-care (01) ==
LOC: HO.HCS 13:46
PROVIDERS: PCP Internal Medicine; Visit Provider Internal Medicine Cardiovascular Disease
DX: I48.0 Paroxysmal atrial fibrillation (principal); I10 Essential (primary) hypertension
CPT/HCPCS: 93010; 99214; G2211

== ENCOUNTER → 2024-09-25 13:45 | Outpatient (BNVA) | payer MEDICARE, SELFPAY | PROVIDERS: PCP Internal Medicine; Visit Provider Internal Medicine Cardiovascular Disease | DX: I48.0 Paroxysmal atrial fibrillation (principal); I10 Essential (primary) hypertension; Z79.899 Other long term (current) drug therapy | CPT/HCPCS: 93005; 99212 ==

== ENCOUNTER 2024-11-01 13:52 | Outpatient (REF) | payer MEDICARE, SELFPAY ==
--- OUTSIDE RECORDS SUMMARY | 2024-11-01 14:00 | XMS_ITS | Patient Health Record ---
Author Organization [facility] Address [address] [place] [address] Care Team Providers Care Radiotelegraph Operator Name Role Phone Rex Rodriguez MD Primary Care Provider Mann Thomas Unavailable [phone] Allergies Allergen (clinical drug ingredient) Drug/Non Drug [...] Problem Status W/U Status Risk Notes Problem [id number] Irritable bowel syndrome with diarrhea (K58.0) Active confirmed Problem [id number] Gastroesophageal reflux disease, esophagitis presence not specified (K21.9) Active confirmed Plan Of Treatment Future Test Test Name Order Date COLONOSCOPY 09/07/2012 Insurance Providers Payer Name Payer Address Payer Phone Subscriber Number Group Number Insured Name Patient Relationship to Insured Coverage Start Date Coverage End Date [facility] [address] [place] [phone] [id number] JOSH DIXON Self - patient is the [...] berenice Nelson benign breast disease hypertension Denies [place],DM,CVA,renal disease chronic bronchitis/asthma depression/anxiety hypothyroidism Colonoscopy in 08/2012--[place] except for diverticulosis-1 small tubular adenoma IBS Surgical History Surgery Date(Month/Year) partial thyroidectomy for benign tumor-Claribel Rehman hysterectomy and removal of one ovary broken leg surgery appendectomy cholecystectomy lumpectomy, left breast-benign Eyelid surgery
[2024-11-01 16:44] LABS: MANUAL DIFF FLAG NO
[2024-11-01 16:53] LABS: Appearance Urine Clear; Glucose Urine UA Negative (Negative); Hematocrit 40.0 % (37.0-47.0); Hemoglobin 13.2 g/dl (12.0-16.0); Imm Gran Abs Auto 0.01 X10*3/uL (0.00-0.03); Imm Gran Pct Auto 0.2 % (0.0-0.4); Lymphocytes Absolute Auto 1.1 X10*3/uL (1.2-4.9); Mean Corpuscular HGB Conc 33.0 g/dl (31.0-35.0); Mean Corpuscular Hemoglobin 28.6 pg (27.0-33.0); Mean Corpuscular Volume 86.6 fL (80.0-98.0); NRBC Abs Auto 0.000 X10*3/uL (0.0-0.012); NRBC Pct Auto 0.0 /100WBC (0.0-0.2); PH 6.5 (5.0-9.0); Platelet Count 197 X10*3/uL (160-400); Red Blood Count 4.62 X10*6/uL (4.20-5.50); Specific Gravity - Urine 1.015 (1.005-1.025); White Blood Count 4.3 X10*3/uL (4.8-10.8)
[2024-11-01 17:09] LABS: Alanine Aminotransferase 15 U/L (0-31); Albumin Level 4.3 g/dL (3.5-5.0); Alkaline Phosphatase 111 U/L (39-117); Anion Gap 12 (12-20); Aspartate Amino Transferase 32 U/L (5-31); Blood Urea Nitrogen 16 mg/dL (9-16); Calcium 9.1 mg/dL (8.4-10.2); Carbon Dioxide 30 mmol/L (22-29); Chloride 105 mmol/L (96-108); Cholesterol 157 mg/dL (<200); Estimated Glomerular Filt Rate > 60; HDL Cholesterol 69 mg/dL (>40); Potassium 3.7 mmol/L (3.3-5.1); Sodium 143 mmol/L (135-145); Total Protein 6.9 g/dL (6.5-8.0); Triglycerides 93 mg/dL (<150)
[2024-11-01 17:28] LABS: Free T4 (Free Thyroxine) 1.11 ng/dL (0.71-1.85); Thyroid Stimulating Hormone 1.85 uIU/mL (0.32-4.0)
== END 2024-11-01 13:53 | disposition home or self-care (01) ==
LOC: HO.HMGCLDS 13:52
PROVIDERS: Internal Medicine; PCP Physician Assistant; Visit Provider Physician Assistant
DX: E78.00 Pure hypercholesterolemia, unspecified (principal); E55.9 Vitamin D deficiency, unspecified; E03.9 Hypothyroidism, unspecified; D64.9 Anemia, unspecified; R30.0 Dysuria
CPT/HCPCS: 36415; 80053; 80061; 81003; 82306; 84439; 84443; 85025

== ENCOUNTER 2024-11-05 13:00 | Outpatient (AMB) | payer MEDICARE, SELFPAY ==
--- NOTE | 2024-11-05 13:15 | A.OFFPC_ITS ---
Vital Signs 11/05/24 13:16 Height 5 ft 2 in Weight 163 lb 6 oz BMI 29.9 BP 130/60 Blood Pressure Location Lt brachial Position Sitting Pulse 63 Pulse Source Pulse Oximeter Temp 97.3 F Temp Source Temporal Artery Scan Pulse Oximetry (%) 98 Oxygen Delivery Method Room Air Intake Visit Reasons: 3mth f/u Intake Note: Patient is here to follow up on HTN, Hypothyroidism, Asthma . Auto Care Center Manager Required: No Air Traffic Control Specialist Center: Not Required per policy Accompanied by: Self / Same As Patient Allergies ampicillin Allergy (Unknown, Verified 11/05/24 13:32) Unknown erythromycin base Allergy (Unknown, Verified 11/05/24 13:32) Rash lisinopril Adverse Reaction (Intermediate, Verified 11/05/24 13:32) Cough Medication List - Last Reconciled 11/05/24 by Matthew Hollingsworth MD acetaminophen ER 650 mg PO Q8H albuterol sulfate 90 mcg/actuation 2 puffs inhalation QID PRN apixaban (Eliquis) 5 mg PO BID atorvastatin 40 mg PO DAILY cetirizine (Zyrtec) 10 mg PO DAILY PRN [compression stockings As directed] cyclobenzaprine 5 mg PO TID PRN fluticasone propionate 50 mcg/actuation 1 spray intranasal BID hydrochlorothiazide 25 mg PO DAILY 90 days levothyroxine 50 mcg PO DAILY lorazepam 1 mg PO BID PRN metoprolol succinate ER 50 mg PO DAILY pantoprazole 40 mg PO DAILY sertraline 50 mg PO DAILY Tobacco use date assessed: 11/05/24 Fall risk assessment: No Falls in past year Last assessed Fall Risk: 11/05/24 Dental Screening Dental Screen Date: 07/20/24 HPI 3mth f/u HPI Details Patient comes in today for her follow up visit States that she feels okay She denies any headaches or dizziness Denies any chest pains, no increased shortness of breath No nausea/vomiting, no abdominal pain No change in bowel habits noted She also has a couple of skin lesions (on the left lower leg and on the left cheek) that she would like to have evaluated to make sure they are not cancerous or precancerous Needs her Lorazepam Rx refilled She had her follow up labs done a few days ago - to discuss her results [facility] Medical History (Updated 11/06/24 @ 05:32 by Matthew Hollingsworth MD) Vitamin D deficiency Overweight (BMI 25.0-29.9) Allergic rhinitis GERD without esophagitis Paroxysmal atrial fibrillation Acquired hypothyroidism Essential hypertension Pure hypercholesterolemia Obesity Anxiety Shortness of breath Surgical History History of right knee surgery History of left knee surgery Hx of cholecystectomy Hx of hysterectomy Hx of cataract surgery Hx of eye surgery History of foot surgery Hx of thyroidectomy Family History Father No problems noted. Mother No problems noted. Social History Housing: House Alcohol intake: current Patient Tobacco Use Status: Never used Tobacco e-Cigarette/Vaping Use: Never Used Second Hand Smoke Exposure: No service: No Current occupational status: retired Cognitive needs: Yes (cane/walker) Hearing needs: No Vision needs: Yes (reading glasses) Questionnaire Thrive Questionnaire Date Thrive assessed: 07/11/24 I am a: Patient What is your living situation today?: I have a steady place to live Within the past 12 months, did the food you bought not last and you didn't have the money to get more?: Never true Within the past 12 months, did you worry whether your food would run out before you got money to buy more?: Never true Do you have trouble paying for medicines?: No Do you have trouble getting transportation to medical appointments?: No Do you have trouble paying your heating and electricity bill?: No Do you have trouble taking care of your child, family member or friend?: No Do you have trouble with day-to-day activities such as bathing, preparing meals, shopping, managing finances, etc.?: Yes Are you currently unemployed and looking for a job?: No Are you interested in more education?: No Please select the resources that you would like help with: None Currently or been in a relationship where the following occur: I choose not to answer THRIVE Score: 0 ERICKA-7 AMB Questionnaire ERICKA-7 Date ERICKA - 7 assessed: 07/20/24 Source: Developed by Drs. Mann Medeiros, Hetal Johnson, Erick Tellez and colleagues, with an educational zulma from [employer]. Review of Systems Const Denies chills, Denies fatigue, Denies fever(s) and Denies headache(s) ENT Denies dysphagia, Denies dizziness, Denies otalgia, Denies headache(s), Denies neck pain, Denies odynophagia and Denies sore throat Card Denies chest pain, Denies palpitations and Denies dyspnea Resp Denies chest congestion, Denies cough, Denies dyspnea and Denies wheezing GI Denies abdominal pain, Denies constipation, Denies dysphagia, Denies heartburn, Denies diarrhea, Denies nausea, Denies odynophagia and Denies vomiting Denies difficulty voiding, Denies nocturia, Denies dysuria and Denies urinary urgency Musc Denies back pain and Denies neck pain Skin/Breast Details: (+) raised keratotic lesion on the left lower leg AND (+) dark lesion on the left cheek Denies rash Neuro Denies dizziness and Denies headache(s) Psych Reports anxiety Endo Denies fatigue and Denies palpitations Aller/Immun Denies wheezing Physical exam (Primary Care) Vital Signs: Last Vital Signs Temp 97.3 F 11/05/24 13:16 Pulse 63 11/05/24 13:16 BP 130/60 11/05/24 13:16 Pulse Ox 98 11/05/24 13:16 Oxygen Delivery Method Room Air 11/05/24 13:16 BMI result Body Mass Index 29.9 Tobacco/Smoking Status: Tobacco use Status Tobacco use date assessed 11/05/24 11/05/24 13:23 Patient Tobacco Use Status Never used Tobacco 11/05/24 13:23 e-Cigarette/Vaping Use Never Used 11/05/24 13:23 Thrive Assessment: Date of Thrive Assessment Date Thrive assessed 07/11/24 11/05/24 13:23 Currently or been in a relationship where the following occur: I choose not to answer Const General: no acute distress and alert HENMT Ears: TM's normal bilaterally and EAC's normal Throat: Yes posterior oropharynx normal and Yes tonsils normal (no TP congestion) Neck Neck: Yes supple and No lymphadenopathy Thyroid: Thyroid normal Resp Auscultation: clear to auscultation bilaterally, no rales and no wheezes Cardio Rate: regular rate Rhythm: regular rhythm Heart sounds: no murmurs GI Palpation (GI): Soft to palpation and nontender Auscultation: normal bowel sounds General: Yes no CVA tenderness Back/Spine/Pelvis Back: no CVA tenderness Thoracic/Lumbar Spine: No lumbar spinal tenderness Skin Other: (+) raised keratotic lesion on the left lower leg AND (+) dark lesion on the left cheek Rashes: no rashes Extrem General: Yes no clubbing, cyanosis or edema Results Reviewed Results Reviewed: Laboratory Tests 11/01/24 11/01/24 13:26 13:56 WBC 4.3 L Hgb 13.2 Hct 40.0 Plt Count 197 Sodium 143 Potassium 3.7 Creatinine 0.85 Estimated GFR > 60 Fasting Glucose 102 H Calcium 9.1 AST 32 H ALT 15 Triglycerides 93 Cholesterol 157 LDL Cholesterol, Calc 70 HDL Cholesterol 69 25-OH Vitamin D Total 16.0 L TSH 1.85 Free T4 1.11 Ur Specific [place] 1.015 Urine Protein Negative Urine Glucose (UA) Negative Urine Blood Negative Urine Nitrite Negative Ur Leukocyte Esterase Negative Coding Level of Care Code Est Pt Level 4 (14023) Diagnoses Pure hypercholesterolemia E78.00 Essential hypertension I10 Paroxysmal atrial fibrillation I48.0 Acquired hypothyroidism E03.9 Intermittent asthma, unspecified asthma severity, unspecified whether complicated J45.20 Asthma complication type: unspecified Asthma persistence: intermittent Asthma severity: unspecified severity GERD without esophagitis K21.9 Allergic rhinitis, unspecified seasonality, unspecified trigger J30.9 Allergic rhinitis seasonality: unspecified Allergic rhinitis trigger: unspecified Vitamin D deficiency E55.9 Skin lesions L98.9 Anxiety F41.9 Overweight (BMI 25.0-29.9) E66.3 Assessment & Plan Assessment & Plan (1) Pure hypercholesterolemia: Code(s): E78.00 - Pure hypercholesterolemia, unspecified Category: Medical Plan: Results of her labs done a few days ago reviewed and discussed with patient - she is advised that her cholesterol levels remain well-controlled on her current Rx Reinforced low cholesterol diet Continue Atorvastatin 40 mg QD Will recheck her labs and fasting lipids in 3 months for follow up (2) Essential hypertension: Code(s): I10 - Essential (primary) hypertension Category: Medical Plan: Reinforced low sodium diet - goal is systolic BP of at least 130 to 140 mm or less Continue Metoprolol ER 50 mg QD and HCTZ 25 mg QD (3) Paroxysmal atrial fibrillation: Code(s): I48.0 - Paroxysmal atrial fibrillation Category: Social Hx Plan: Patient is currently still in sinus rhythm Continue Apixaban 5 mg BID for thromboembolism prophylaxis and Metoprolol ER 50 mg QD Follow up with cardiology as scheduled (4) Acquired hypothyroidism: Code(s): E03.9 - Hypothyroidism, unspecified Category: Medical Plan: Her TFTs were normal on her recent labs Continue Levothyroxine 50 mcg QD Will recheck her TFTs in 3 months for follow up (5) Asthma: Code(s): J45.909 - Unspecified asthma, uncomplicated Category: Medical Qualifiers: Asthma complication type: unspecified Asthma persistence: intermittent Asthma severity: unspecified severity Qualified Code(s): J45.20 - Mild intermittent asthma, uncomplicated Plan: Controlled Continue Albuterol HFA 1 to 2 inhalations QID PRN (6) GERD without esophagitis: Code(s): K21.9 - Gastro-esophageal reflux disease without esophagitis Category: Medical Plan: Dietary restrictions in GERD reinforced Continue Pantoprazole 40 mg QD (7) Allergic rhinitis: Code(s): J30.9 - Allergic rhinitis, unspecified Category: Medical Qualifiers: Allergic rhinitis seasonality: unspecified Allergic rhinitis trigger: unspecified Qualified Code(s): J30.9 - Allergic rhinitis, unspecified Plan: Continue Cetirizine 10 mg QD PRN and Fluticasone 50 mcg nasal spray QD PRN (8) Vitamin D deficiency: Code(s): E55.9 - Vitamin D deficiency, unspecified Category: Medical Plan: Patient is advised that her Vitamin D level is low on her recent labs Will start her on Viitamin D3 2000 units QD (9) Skin lesions: Code(s): L98.9 - Disorder of the skin and subcutaneous tissue, unspecified Category: Medical Plan: Will refer her to dermatology for further evaluation and management (10) Anxiety: Code(s): F41.9 - Anxiety disorder, unspecified Category: Medical Plan: Continue Sertraline 50 mg QD and Lorazepam 1 mg BID PRN (Rx refilled) (11) Overweight (BMI 25.0-29.9): Code(s): E66.3 - Overweight Category: Medical Plan: Reinforced diet; exercise and weight loss may not be realistic given patient's advanced age and comorbidities Plan Follow up in 3 months Orders: Orders Complete Blood Count Auto Diff 3 Months D64.9 - Anemia, unspecified Comprehensive [place]. Panel Fast 3 Months E78.00 - Pure hypercholesterolemia, unspecified Lipid Panel 3 Months E78.00 - Pure hypercholesterolemia, unspecified Thyroid Stimulating Hormone 3 Months E03.9 - Hypothyroidism, unspecified Free T4 (Free Thyroxine) 3 Months E03.9 - Hypothyroidism, unspecified Vitamin D 25-OH Total 3 Months E55.9 - Vitamin D deficiency, unspecified UA CC w/rflx Micro + Cult 3 Months R30.0 - Dysuria Referrals Dermatology Referral L98.9 - Disorder of the skin and subcutaneous tissue, unspecified Medications: New cholecalciferol (vitamin D3) 50 mcg PO DAILY 90 caps 3RF 90 days E55.9 - Vitamin D deficiency, unspecified Refilled lorazepam 1 mg PO BID PRN 60 tabs 0RF anxiety
[2024-11-05 13:16] VITALS: BP 130/60; PULSE 63; TEMP 36.3; O2SAT 98; BMI 29.9
--- OUTSIDE RECORDS SUMMARY | 2024-11-05 14:15 | XMS_ITS | Patient Health Record ---
Author Organization [facility] Address [address] [place] [address] Care Team Providers Care Supervisor Stave Cutting Name Role Phone Rex Rodriguez MD Primary Care Provider Mann Thomas Unavailable [phone] Allergies Allergen (clinical drug ingredient) Drug/Non Drug [...] Problem Status W/U Status Risk Notes Problem [id number] Irritable bowel syndrome with diarrhea (K58.0) Active confirmed Problem [id number] Gastroesophageal reflux disease, esophagitis presence not specified (K21.9) Active confirmed Plan Of Treatment Future Test Test Name Order Date COLONOSCOPY 09/07/2012 Insurance Providers Payer Name Payer Address Payer Phone Subscriber Number Group Number Insured Name Patient Relationship to Insured Coverage Start Date Coverage End Date [facility] [address] [place] [address] [id number] JOSH DIXON Self - patient is the [...] berenice Nelson benign breast disease hypertension Denies [place],DM,CVA,renal disease chronic bronchitis/asthma depression/anxiety hypothyroidism Colonoscopy in 08/2012--[place] except for diverticulosis-1 small tubular adenoma IBS Surgical History Surgery Date(Month/Year) partial thyroidectomy for benign tumor-Claribel Rehman hysterectomy and removal of one ovary broken leg surgery appendectomy cholecystectomy lumpectomy, left breast-benign Eyelid surgery
== END 2024-11-05 13:52 | disposition home or self-care (01) ==
LOC: HO.HMCH 13:01
PROVIDERS: PCP Internal Medicine; Visit Provider Internal Medicine
DX: E78.00 Pure hypercholesterolemia, unspecified (principal); I10 Essential (primary) hypertension; I48.0 Paroxysmal atrial fibrillation; E03.9 Hypothyroidism, unspecified; J45.20 Mild intermittent asthma, uncomplicated; K21.9 Gastro-esophageal reflux disease without esophagitis; J30.9 Allergic rhinitis, unspecified; E55.9 Vitamin D deficiency, unspecified; L98.9 Disorder of the skin and subcutaneous tissue, unspecified; F41.9 Anxiety disorder, unspecified; E66.3 Overweight

== ENCOUNTER → 2024-11-05 13:00 | Outpatient (BNVA) | payer MEDICARE, SELFPAY | PROVIDERS: PCP Internal Medicine; Visit Provider Internal Medicine | DX: E78.00 Pure hypercholesterolemia, unspecified (principal); I10 Essential (primary) hypertension; I48.0 Paroxysmal atrial fibrillation; E03.9 Hypothyroidism, unspecified; J45.20 Mild intermittent asthma, uncomplicated; K21.9 Gastro-esophageal reflux disease without esophagitis; J30.9 Allergic rhinitis, unspecified; E55.9 Vitamin D deficiency, unspecified; L98.9 Disorder of the skin and subcutaneous tissue, unspecified; F41.9 Anxiety disorder, unspecified; E66.3 Overweight; Z68.29 Body mass index [BMI] 29.0-29.9, adult; Z71.3 Dietary counseling and surveillance | CPT/HCPCS: 99212 ==

== ENCOUNTER 2024-11-28 10:16 | Outpatient (REF) | payer MEDICARE, SELFPAY ==
--- NOTE | ~2024-11-28 | XR_ITS ---
EXAMINATION: XR CHEST CLINICAL INFORMATION: J98.8 - Other specified respiratory disorders COMPARISON: 03/10/2023 TECHNIQUE: 2 views of the chest were obtained. FINDINGS: No interval change. Lungs are clear and well aerated. Heart size is within normal limits. There is narrowing of the subacromial space on the right. XR/XR chest 2V IMPRESSION: No acute disease. Narrowing of the right subacromial space raises question of underlying rotator cuff tear. Narrowing could be positional/projectional in nature. Electronically signed by: Tian Sims MD 11/28/2024 10:51 AM EDT
--- OUTSIDE RECORDS SUMMARY | 2024-11-28 12:32 | XMS_ITS | Patient Health Record ---
Author Organization [facility] Address [address] [place] [address] Care Team Providers Care Finisher Machine Name Role Phone Rex Rodriguez MD Primary Care Provider Mann Thomas Unavailable [phone] Allergies Allergen (clinical drug ingredient) Drug/Non Drug [...] Problem Status W/U Status Risk Notes Problem [id number] Irritable bowel syndrome with diarrhea (K58.0) Active confirmed Problem 629675769 Gastroesophageal reflux disease, esophagitis presence not specified (K21.9) Active confirmed Plan Of Treatment Future Test Test Name Order Date COLONOSCOPY 09/07/2012 Insurance Providers Payer Name Payer Address Payer Phone Subscriber Number Group Number Insured Name Patient Relationship to Insured Coverage Start Date Coverage End Date [facility] [address] [place] [phone] [id number] JOSH DIXON Self - patient is the [...] berenice Nelson benign breast disease hypertension Denies [place],DM,CVA,renal disease chronic bronchitis/asthma depression/anxiety hypothyroidism Colonoscopy in 08/2012--[place] except for diverticulosis-1 small tubular adenoma IBS Surgical History Surgery Date(Month/Year) partial thyroidectomy for benign tumor-Claribel Rehman hysterectomy and removal of one ovary broken leg surgery appendectomy cholecystectomy lumpectomy, left breast-benign Eyelid surgery
== END 2024-11-28 10:17 | disposition home or self-care (01) ==
LOC: HO.XRAY 10:16
PROVIDERS: PCP Internal Medicine; Visit Provider Internal Medicine
DX: J98.8 Other specified respiratory disorders (principal)
CPT/HCPCS: 71046

== ENCOUNTER → 2024-11-28 10:22 | Outpatient (BNV) | payer MEDICARE, SELFPAY | PROVIDERS: PCP Internal Medicine; Visit Provider Radiology Diagnostic Radiology | DX: J98.8 Other specified respiratory disorders (principal) | CPT/HCPCS: 71046 ==

== ENCOUNTER → 2025-02-14 14:37 | Outpatient (BNV) | payer MEDICARE, SELFPAY | PROVIDERS: PCP Internal Medicine; Visit Provider Radiology Diagnostic Radiology | DX: M18.12 Unilateral primary osteoarthritis of first carpometacarpal joint, left hand (principal); M11.232 Other chondrocalcinosis, left wrist; M85.842 Other specified disorders of bone density and structure, left hand | CPT/HCPCS: 73110 ==

== ENCOUNTER 2025-02-18 13:18 | Outpatient (AMB) | payer MEDICARE, SELFPAY ==
[2025-02-18 13:22] VITALS: BP 120/64; PULSE 60; TEMP 36.1; O2SAT 95; BMI 31.2
--- NOTE | 2025-02-18 13:22 | A.OFFPC_ITS ---
Vital Signs 02/18/25 13:22 Height 5 ft 2 in Weight 170 lb 6.677 oz BMI 31.2 BP 120/64 Blood Pressure Location Lt brachial Position Sitting Pulse 60 Pulse Source Pulse Oximeter Temp 97.0 F Temp Source Temporal Artery Scan Pulse Oximetry (%) 95 Oxygen Delivery Method Room Air Intake Visit Reasons: 3 months Allergies ampicillin Allergy (Unknown, Verified 02/18/25 13:35) Unknown erythromycin base Allergy (Unknown, Verified 02/18/25 13:35) Rash lisinopril Adverse Reaction (Intermediate, Verified 02/18/25 13:35) Cough Medication List - Last Reconciled 02/18/25 by Matthew Hollingsworth MD acetaminophen ER 650 mg PO Q8H albuterol sulfate 90 mcg/actuation 2 puffs inhalation QID PRN apixaban (Eliquis) 5 mg PO BID atorvastatin 40 mg PO DAILY cetirizine (Zyrtec) 10 mg PO DAILY 30 days cholecalciferol (vitamin D3) 50 mcg PO DAILY 90 days [compression stockings As directed] cyclobenzaprine 5 mg PO TID PRN fluticasone propionate 50 mcg/actuation 1 spray intranasal BID hydrochlorothiazide 25 mg PO DAILY 90 days levothyroxine 50 mcg PO DAILY lorazepam 1 mg PO BID PRN metoprolol succinate ER 50 mg PO DAILY pantoprazole 40 mg PO DAILY sertraline 50 mg PO DAILY Tobacco use date assessed: 02/18/25 Fall risk assessment: No Falls in past year Last assessed Fall Risk: 02/18/25 Dental Screening Dental Screen Date: 02/18/25 Did you have a dental visit in the last 12 months?: Yes Did you have a dental problem in the last 6 months where you did not have access to dental care?: No Was dental information given to patient?: Patient has dentist HPI 3 months HPI Details Patient comes in today for her follow up visit States that she feels okay Still has some pain over her left wrist / hand area but states that the pain has improved a lot from last week She would like to know how her x-rays came out She denies any headaches or dizziness Denies any chest pains, no increased shortness of breath No nausea/vomiting, no abdominal pain No change in bowel habits noted She was not able to get her follow up labs done prior to her appointment today [facility] Medical History (Updated 02/18/25 @ 14:07 by Matthew Hollingsworth MD) Obesity (BMI 30-39.9) Vitamin D deficiency Overweight (BMI 25.0-29.9) Allergic rhinitis GERD without esophagitis Paroxysmal atrial fibrillation Acquired hypothyroidism Essential hypertension Pure hypercholesterolemia Obesity Anxiety Shortness of breath Surgical History History of right knee surgery History of left knee surgery Hx of cholecystectomy Hx of hysterectomy Hx of cataract surgery Hx of eye surgery History of foot surgery Hx of thyroidectomy Family History Father No problems noted. Mother No problems noted. Social History Housing: House Alcohol intake: current Patient Tobacco Use Status: Never used Tobacco e-Cigarette/Vaping Use: Never Used Second Hand Smoke Exposure: No service: No Current occupational status: retired Cognitive needs: Yes (cane/walker) Hearing needs: No Vision needs: Yes (reading glasses) Questionnaire PHQ-9 Over the last 2 weeks, how often have you been bothered by any of the following problems? 1. Little interest or pleasure in doing things: not at all 2. Feeling down, depressed, or hopeless: nearly every day 3. Trouble falling or staying asleep, or sleeping too much: nearly every day 4. Feeling tired or having little energy: nearly every day 5. Poor appetite or overeating: more than half the days 6. Feeling bad about yourself - or that you are a failure or have let yourself or your family down: nearly every day 7. Trouble concentrating on things, such as reading the newspaper or watching television: nearly every day 8. Moving or speaking so slowly that other people could have noticed. Or the opposite - being so fidgety or restless that you have been moving around a lot more than usual: not at all 9. Thoughts that you would be better off or of hurting yourself in some way: not at all Total score: 17 Depression Screening Interpretation: Positive Depression Screening Follow-up: Existing condition and In treatment Depression Screening Done: Yes 08181 - PHQ-9 Billing: Yes Source: Developed by Drs. Mann Medeiros, Hetal BErick Andrews and colleagues, with an educational zulma from [employer]. Thrive Questionnaire Date Thrive assessed: 02/14/25 I am a: Patient What is your living situation today?: I have a steady place to live Within the past 12 months, did the food you bought not last and you didn't have the money to get more?: Never true Within the past 12 months, did you worry whether your food would run out before you got money to buy more?: Never true Do you have trouble paying for medicines?: No Do you have trouble getting transportation to medical appointments?: No Do you have trouble paying your heating and electricity bill?: No Do you have trouble taking care of your child, family member or friend?: No Do you have trouble with day-to-day activities such as bathing, preparing meals, shopping, managing finances, etc.?: Yes Are you currently unemployed and looking for a job?: No Are you interested in more education?: No Please select the resources that you would like help with: None Currently or been in a relationship where the following occur: I choose not to answer THRIVE Score: 0 AUDIT C Alcohol Use Questionnaire (AUDIT-C) 1. How often do you have a drink containing alcohol?: Never 3. How often do you have six or more drinks on one occasion?: Never Total Score: 0 Score Reviewed/Action Taken: Yes ERICKA-7 AMB Questionnaire ERICKA-7 Date ERICKA - 7 assessed: 07/20/24 Feeling nervous, anxious, or on edge: 3 = Nearly every day Not being able to stop or control worryin = Nearly every day Worrying too much about different things: 3 = Nearly every day Trouble relaxin = Nearly every day Being so restless that it is hard to sit still: 3 = Nearly every day Becoming easily annoyed or irritable: 0 = Not at all Feeling afraid as if something awful might happen: 1 = Several days Total ERICKA-7 score (0-4 normal; 5-9 mild; 10-14 moderate; 15-21 severe): 16 Source: Developed by Drs. Mann Medeiros, Erick Gusman and colleagues, with an educational zulma from [employer]. Review of Systems Const Denies chills, Denies fatigue, Denies fever(s) and Denies headache(s) ENT Denies dysphagia, Denies dizziness, Denies otalgia, Denies headache(s), Denies neck pain, Denies odynophagia and Denies sore throat Card Denies chest pain, Denies palpitations and Denies dyspnea Resp Denies chest congestion, Denies cough, Denies dyspnea and Denies wheezing GI Denies abdominal pain, Denies constipation, Denies dysphagia, Denies heartburn, Denies diarrhea, Denies nausea, Denies odynophagia and Denies vomiting Denies difficulty voiding, Denies nocturia, Denies dysuria and Denies urinary urgency Musc Denies back pain, Reports arthralgias (over the ulnar side of the left wrist and hand) and Denies neck pain Skin/Breast Denies rash Neuro Denies dizziness and Denies headache(s) Psych Reports anxiety Endo Denies fatigue and Denies palpitations Aller/Immun Denies wheezing Physical exam (Primary Care) Vital Signs: Last Vital Signs Temp 97.0 F 02/18/25 13:22 Pulse 60 02/18/25 13:22 BP 120/64 02/18/25 13:22 Pulse Ox 95 02/18/25 13:22 Oxygen Delivery Method Room Air 02/18/25 13:22 BMI result Body Mass Index 31.2 Tobacco/Smoking Status: Tobacco use Status Tobacco use date assessed 02/18/25 02/18/25 13:28 Patient Tobacco Use Status Never used Tobacco 02/18/25 13:28 e-Cigarette/Vaping Use Never Used 02/18/25 13:28 PHQ-9: PHQ-9 Score PHQ-9: Total score 17 02/18/25 13:28 Depression Screening Interpretation: Positive Depression Screening Follow-up: Existing condition and In treatment Thrive Assessment: Date of Thrive Assessment Date Thrive assessed 02/14/25 02/18/25 13:28 Currently or been in a relationship where the following occur: I choose not to answer Const General: no acute distress and alert HENMT Ears: TM's normal bilaterally and EAC's normal Throat: Yes posterior oropharynx normal and Yes tonsils normal (no TP congestion) Neck Neck: Yes supple and No lymphadenopathy Thyroid: Thyroid normal Resp Auscultation: clear to auscultation bilaterally, no rales and no wheezes Cardio Rate: regular rate Rhythm: regular rhythm Heart sounds: no murmurs GI Palpation (GI): Soft to palpation and nontender Auscultation: normal bowel sounds General: Yes no CVA tenderness Back/Spine/Pelvis Back: no CVA tenderness Thoracic/Lumbar Spine: No lumbar spinal tenderness Skin Rashes: no rashes Extrem General: Yes no clubbing, cyanosis or edema Left upper extremity: wrist ((+) mild tenderness over the ulnar aspect of the left wrist and hand) Coding Level of Care Code Est Pt Level 4 (53185) Diagnoses Pure hypercholesterolemia E78.00 Essential hypertension I10 Paroxysmal atrial fibrillation I48.0 Acquired hypothyroidism E03.9 Intermittent asthma, unspecified asthma severity, unspecified whether complicated J45.20 Asthma severity: unspecified severity Asthma persistence: intermittent Asthma complication type: unspecified GERD without esophagitis K21.9 Allergic rhinitis, unspecified seasonality, unspecified trigger J30.9 Allergic rhinitis trigger: unspecified Allergic rhinitis seasonality: unspecified Left wrist pain M25.532 Vitamin D deficiency E55.9 Anxiety F41.9 Obesity (BMI 30-39.9) E66.9 Additional Codes PHQ-9 - 74984 - PHQ-9 Billing: Yes ([id number]) Assessment & Plan Assessment & Plan (1) Pure hypercholesterolemia: Code(s): E78.00 - Pure hypercholesterolemia, unspecified Category: Medical Plan: Patient was not able to get her follow up labs done prior to her appointment gini calderón Reinforced low cholesterol diet Continue Atorvastatin 40 mg QD Will recheck her labs and fasting lipids in 4 months for follow up - will just have patient use her current orders (updated) for her next lab draw (2) Essential hypertension: Code(s): I10 - Essential (primary) hypertension Category: Medical Plan: Reinforced low sodium diet - goal is systolic BP of at least 130 to 140 mm or less Continue Metoprolol ER 50 mg QD and HCTZ 25 mg QD (3) Paroxysmal atrial fibrillation: Code(s): I48.0 - Paroxysmal atrial fibrillation Category: Social Hx Plan: Patient is currently still in sinus rhythm Continue Apixaban 5 mg BID for thromboembolism prophylaxis and Metoprolol ER 50 mg QD Follow up with cardiology as scheduled (4) Acquired hypothyroidism: Code(s): E03.9 - Hypothyroidism, unspecified Category: Medical Plan: Continue Levothyroxine 50 mcg QD Will recheck her TFTs in 4 months for follow up (5) Asthma: Code(s): J45.909 - Unspecified asthma, uncomplicated Category: Medical Qualifiers: Asthma severity: unspecified severity Asthma persistence: intermittent Asthma complication type: unspecified Qualified Code(s): J45.20 - Mild intermittent asthma, uncomplicated Plan: Controlled Continue Albuterol HFA 1 to 2 inhalations QID PRN (6) GERD without esophagitis: Code(s): K21.9 - Gastro-esophageal reflux disease without esophagitis Category: Medical Plan: Dietary restrictions in GERD reinforced Continue Pantoprazole 40 mg QD (7) Allergic rhinitis: Code(s): J30.9 - Allergic rhinitis, unspecified Category: Medical Qualifiers: Allergic rhinitis trigger: unspecified Allergic rhinitis seasonality: unspecified Qualified Code(s): J30.9 - Allergic rhinitis, unspecified Plan: Continue Cetirizine 10 mg QD PRN and Fluticasone 50 mcg nasal spray QD PRN (8) Left wrist pain: Code(s): M25.532 - Pain in left wrist Category: Medical Plan: X-rays of the left wrist done a few days ago on 02/14/2025 revealed (+) 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, subchondral sclerosis involving the STT joint, chondrocalcinosis, osteopenia, coalition of the trapezium and trapezoid and mild widening of scapholunate interval that raises the question of a scapholunate ligament tear Patient now recalls that this is the same wrist that she injured (thinks she may have fractured it) a few years ago before the COVID pandemic but she did not require any surgical intervention at the time As she states that her wrist pain seems to have improved from last week and her current wrist ROM appears to be close to normal, will hold off on any further intervention at this time Patient is reminded to continue to avoid any activities involving her left hand and wrist that can aggravate her injury for the next few weeks until her wrist and hand symptoms have resolved completely (9) Vitamin D deficiency: Code(s): E55.9 - Vitamin D deficiency, unspecified Category: Medical Plan: Continue Viitamin D3 2000 units QD (10) Anxiety: Code(s): F41.9 - Anxiety disorder, unspecified Category: Medical Plan: Continue Sertraline 50 mg QD and Lorazepam 1 mg BID PRN - have emphasized to her that Sertraline should be taken daily for it to be effective and she can just take her Lorazepam on an as-needed basis (11) Obesity (BMI 30-39.9): Code(s): E66.9 - Obesity, unspecified Category: Medical Plan: Reinforced diet; exercise and weight loss may not be realistic given patient's advanced age and comorbidities Patient is cautioned that she has gained some weight since her last visit and she should watch her weight more closely through the holidays Plan Follow up in 4 months
== END 2025-02-18 14:05 | disposition home or self-care (01) ==
LOC: HO.HMCH 13:20
PROVIDERS: PCP Internal Medicine; Visit Provider Internal Medicine
DX: E78.00 Pure hypercholesterolemia, unspecified (principal); I48.0 Paroxysmal atrial fibrillation; E66.9 Obesity, unspecified; Z68.31 Body mass index [BMI] 31.0-31.9, adult; I10 Essential (primary) hypertension; E03.9 Hypothyroidism, unspecified; J45.20 Mild intermittent asthma, uncomplicated; K21.9 Gastro-esophageal reflux disease without esophagitis; J30.9 Allergic rhinitis, unspecified; M25.532 Pain in left wrist; E55.9 Vitamin D deficiency, unspecified; F41.9 Anxiety disorder, unspecified

== ENCOUNTER → 2025-02-18 13:18 | Outpatient (BNVA) | payer MEDICARE, SELFPAY | PROVIDERS: PCP Internal Medicine; Visit Provider Internal Medicine | DX: I10 Essential (primary) hypertension (principal); E78.00 Pure hypercholesterolemia, unspecified; I48.0 Paroxysmal atrial fibrillation; E03.9 Hypothyroidism, unspecified; J45.20 Mild intermittent asthma, uncomplicated; K21.9 Gastro-esophageal reflux disease without esophagitis; J30.9 Allergic rhinitis, unspecified; M25.532 Pain in left wrist; E55.9 Vitamin D deficiency, unspecified; F41.9 Anxiety disorder, unspecified; E66.9 Obesity, unspecified; Z13.31 Encounter for screening for depression | CPT/HCPCS: 96127; 99212 ==